=== PATIENT | female | born 1995 | race Caucasian/White ===

== ENCOUNTER 2017-09-03 22:27 | Emergency (ER) | payer SELFPAY ==
[2017-09-03] MEDS ORDERED: Erythromycin Base 0.5% Ophth Oint 1 GM Tube EYEBOTH ONE (22:40)
--- NOTE | 2017-09-03 22:43 | EDM.PDOC ---
ED HPI GENERAL MEDICAL PROBLEM - General Chief Complaint: Eye Problems Stated Complaint: PT HAS EYE INFECTION Time Seen by Provider: 09/03/17 22:40 Source of Information: Reports: Patient - History of Present Illness INITIAL COMMENTS - FREE TEXT/NARRATIVE: HISTORY AND PHYSICAL: History of present illness: [Patient whom wears contact lenses developed conjunctivitis in her right eye, she has discarded the contact lenses and is wearing spectacles at current no fever nausea vomiting chills sweats No double vision or light sensitivity ] Review of systems: As per history of present illness and below otherwise all systems reviewed and negative. Past medical history: As per history of present illness and as reviewed below otherwise noncontributory. Surgical history: As per history of present illness and as reviewed below otherwise noncontributory. Social history: No reported history of drug or alcohol abuse. Family history: As per history of present illness and as reviewed below otherwise noncontributory. Physical exam: HEENT: Atraumatic, normocephalic, pupils reactive, negative for conjunctival pallor or scleral icterus, mucous membranes moist, throat clear, neck supple, nontender, trachea midline. antibiotics a dates and the angle of her right eye and left eye is clear Lungs: Clear to auscultation, breath sounds equal bilaterally, chest nontender. Heart: S1S2, regular, negative for clicks, rubs, or JVD. Abdomen: Soft, nondistended, nontender. Negative for masses or hepatosplenomegaly. Negative for costovertebral tenderness. Pelvis: Stable nontender. Genitourinary: Deferred. Rectal: Deferred. Extremities: Atraumatic, negative for cords or calf pain. Neurovascular unremarkable. Neuro: Awake, alert, oriented. Cranial nerves II through XII unremarkable. Cerebellum unremarkable. Motor and sensory unremarkable throughout. Exam nonfocal. Diagnostics: [Clinical ] Therapeutics: [ erythromycin ointment tonight Gent ophthalmic prescription provided ] no contact lens usage 5 days Impression: [ acute conjunctivitis ] Definitive disposition and diagnosis as appropriate pending reevaluation and review of above. right eye Pain Score (Numeric/FACES): 5 - Related Data Allergies Allergy/AdvReac Type Severity Reaction Status Date / Time Sulfa (Sulfonamide Allergy Hives Verified 06/10/14 00:49 Antibiotics) Home Meds: Home Meds Norethindrone-E.estradiol-Iron [Junel Fe 1 MG-20 MCG] 1 each PO DAILY 07/12/14 [ History] hydrOXYzine Pamoate [Hydroxyzine Pamoate] 25 mg PO DAILY 07/12/14 [History] Past Medical History - Past Health History Medical/Surgical History: Denies Medical/Surgical History ED ROS GENERAL - Review of Systems Review Of Systems: ROS reveals no pertinent complaints other than HPI. ED EXAM GENERAL W FULL EYE - Physical Exam Exam: See Below Course - Vital Signs Last Recorded V/S: Last Vital Signs Temp 97 F 09/03/17 22:27 Pulse 65 09/03/17 22:27 Resp 18 09/03/17 22:27 BP 120/60 09/03/17 22:27 Pulse Ox 95 09/03/17 22:27 - Orders/Labs/Meds Orders: Active Orders 24 hr Category Date Time Status Erythromycin Base [Erythromycin 0.5% Ophth Oint] Med 09/03/17 22:40 Once 1 gm EYEBOTH ONETIME ONE Departure - Departure Time of Disposition: 22:42 Disposition: Home, Self-Care 01 Condition: Good Clinical Impression: Conjunctivitis - Discharge Information Referrals: PCP,None [Primary Care Provider] - Additional Instructions: Discard contact lenses Spectacles for 5 days Medication as prescribeReturn if symptoms persist or worsend The following information is given to patients seen in the emergency department who are being discharged to home. This information is to outline your options for follow-up care. We provide all patients seen in our emergency department with a follow-up referral. The need for follow-up, as well as the timing and circumstances, are variable depending upon the specifics of your emergency department visit. If you don't have a primary care physician on staff, we will provide you with a referral. We always advise you to contact your personal physician following an emergency department visit to inform them of the circumstance of the visit and for follow-up with them and/or the need for any referrals to a consulting specialist. The emergency department will also refer you to a specialist when appropriate. This referral assures that you have the opportunity for follow-up care with a specialist. All of these measure are taken in an effort to provide you with optimal care, which includes your follow-up. Under all circumstances we always encourage you to contact your private physician who remains a resource for coordinating your care. When calling for follow-up care, please make the office aware that this follow-up is from your recent emergency room visit. If for any reason you are refused follow-up, please contact the [facility] emergency department at and asked to speak to the emergency department charge nurse. - My Orders Last 24 Hours: My Active Orders 09/03/17 22:40 Erythromycin Base [Erythromycin 0.5% Ophth Oint] 1 gm EYEBOTH ONETIME ONE - Assessment/Plan Last 24 Hours: My Active Orders 09/03/17 22:40 Erythromycin Base [Erythromycin 0.5% Ophth Oint] 1 gm EYEBOTH ONETIME ONE
[2017-09-03 22:55] VITALS: BP 120/60
== END 2017-09-03 23:00 | disposition home or self-care (01) ==
LOC: MW.ED 22:27
DX: H10.31 Unspecified acute conjunctivitis, right eye (principal); Z88.2 Allergy status to sulfonamides; Z79.899 Other long term (current) drug therapy
CPT/HCPCS: 99282; A9270

== ENCOUNTER 2018-08-19 09:16 | Emergency (ER) | payer OTHER ==
--- NOTE | 2018-08-19 10:13 | CR ---
EXAMINATION: Right hand HISTORY: Pain COMPARISON: 04/28/2014 TECHNIQUE: 3 views FINDINGS/IMPRESSION: There is no acute osseous abnormality, dislocation, or fracture. Bone mineralization and joint spaces are preserved. No focal soft tissue swelling.
--- NOTE | 2018-08-19 10:14 | CR ---
EXAMINATION: Cervical spine HISTORY: Pain COMPARISON: 02/24/2014 TECHNIQUE: AP and lateral views FINDINGS: The cervical spinal alignment is normal. The vertebral body heights and disc spaces appear maintained. Prevertebral soft tissues are normal. IMPRESSION: Grossly unremarkable cervical spine.
--- NOTE | 2018-08-19 10:50 | EDM.PDOC ---
ED HPI GENERAL MEDICAL PROBLEM - General Chief Complaint: Neck Problem Stated Complaint: NECK PAIN Time Seen by Provider: 08/19/18 10:40 Source of Information: Reports: Patient - History of Present Illness INITIAL COMMENTS - FREE TEXT/NARRATIVE: HISTORY AND PHYSICAL: History of present illness: [see]seee "T" sheet Review of systems: As per history of present illness and below otherwise all systems reviewed and negative. Past medical history: As per history of present illness and as reviewed below otherwise noncontributory. Surgical history: As per history of present illness and as reviewed below otherwise noncontributory. Social history: No reported history of drug or alcohol abuse. Family history: As per history of present illness and as reviewed below otherwise noncontributory. Physical exam: HEENT: Atraumatic, normocephalic, pupils reactive, negative for conjunctival pallor or scleral icterus, mucous membranes moist, throat clear, neck supple, nontender, trachea midline. Lungs: Clear to auscultation, breath sounds equal bilaterally, chest nontender. Heart: S1S2, regular, negative for clicks, rubs, or JVD. Abdomen: Soft, nondistended, nontender. Negative for masses or hepatosplenomegaly. Negative for costovertebral tenderness. Pelvis: Stable nontender. Genitourinary: Deferred. Rectal: Deferred. Extremities: Atraumatic, negative for cords or calf pain. Neurovascular unremarkable. Neuro: Awake, alert, oriented. Cranial nerves II through XII unremarkable. Cerebellum unremarkable. Motor and sensory unremarkable throughout. Exam nonfocal. Diagnostics: [] Therapeutics: [] Impression: [] Definitive disposition and diagnosis as appropriate pending reevaluation and review of above. neck Pain Score (Numeric/FACES): 5 - Related Data Allergies Allergy/AdvReac Type Severity Reaction Status Date / Time Sulfa (Sulfonamide Allergy Hives Verified 08/19/18 09:19 Antibiotics) Home Meds: Home Meds Albuterol [Ventolin HFA] 1 puff INH Q4H #1 inhaler 03/03/18 [Rx] Past Medical History - Past Health History Medical/Surgical History: Denies Medical/Surgical History HEENT History: Reports: Otitis Media Cardiovascular History: Reports: None Respiratory History: Reports: Asthma, Other (See Below) Other Respiratory History: pleursiy Gastrointestinal History: Reports: None Genitourinary History: Reports: None MANAGEMENT PROFESSIONAL History: Reports: None Musculoskeletal History: Reports: None Neurological History: Reports: None Psychiatric History: Reports: None Endocrine/Metabolic History: Reports: None Hematologic History: Reports: None Immunologic History: Reports: None Oncologic (Cancer) History: Reports: None Dermatologic History: Reports: None - Infectious Disease History Infectious Disease History: Reports: C-Difficile, Shingles - Past Surgical History Head Surgeries/Procedures: Reports: None HEENT Surgical History: Reports: Myringotomy w Tube(s), Tonsillectomy Other HEENT Surgeries/Procedures: Ear canal surgery Cardiovascular Surgical History: Reports: None Respiratory Surgical History: Reports: None GI Surgical History: Reports: None Female Surgical History: Reports: None Endocrine Surgical History: Reports: None Neurological Surgical History: Reports: None Musculoskeletal Surgical History: Reports: None Oncologic Surgical History: Reports: None Dermatological Surgical History: Reports: None Social & Family History - Family History Family Medical History: Noncontributory - Tobacco Use Smoking Status *Q: Never Smoker Second Hand Smoke Exposure: No - Caffeine Use Caffeine Use: Reports: Coffee, Energy Drinks, Soda, Tea - Recreational Drug Use Recreational Drug Use: No ED ROS GENERAL - Review of Systems Review Of Systems: See Below ED EXAM, GENERAL - Physical Exam Exam: See Below Course - Vital Signs Last Recorded V/S: Last Vital Signs Temp 97.2 F 08/19/18 09:17 Pulse 75 08/19/18 09:17 Resp 18 08/19/18 09:17 BP 99/67 08/19/18 09:41 Pulse Ox 98 08/19/18 09:17 Departure - Departure Time of Disposition: 10:50 Disposition: Home, Self-Care 01 Condition: Good Clinical Impression: Cervical paraspinous muscle spasm - Discharge Information Referrals: PCP,None [Primary Care Provider] - Additional Instructions: The following information is given to patients seen in the emergency department who are being discharged to home. This information is to outline your options for follow-up care. We provide all patients seen in our emergency department with a follow-up referral. The need for follow-up, as well as the timing and circumstances, are variable depending upon the specifics of your emergency department visit. If you don't have a primary care physician on staff, we will provide you with a referral. We always advise you to contact your personal physician following an emergency department visit to inform them of the circumstance of the visit and for follow-up with them and/or the need for any referrals to a consulting specialist. The emergency department will also refer you to a specialist when appropriate. This referral assures that you have the opportunity for follow-up care with a specialist. All of these measure are taken in an effort to provide you with optimal care, which includes your follow-up. Under all circumstances we always encourage you to contact your private physician who remains a resource for coordinating your care. When calling for follow-up care, please make the office aware that this follow-up is from your recent emergency room visit. If for any reason you are refused follow-up, please contact the [facility] emergency department at and asked to speak to the emergency department charge nurse.
[2018-08-19 11:05] VITALS: BP 139/75
== END 2018-08-19 11:05 | disposition home or self-care (01) ==
LOC: MW.ED 09:16
DX: M62.830 Muscle spasm of back (principal); J45.909 Unspecified asthma, uncomplicated; Z88.2 Allergy status to sulfonamides; V49.49XA Driver injured in collision with other motor vehicles in traffic accident, initial encounter
CPT/HCPCS: 72040; 72040-26; 73130-26-RT; 73130-RT; 99283; 99284-25

== ENCOUNTER 2018-10-17 18:59 | Emergency (ER) | payer BC, OTHER ==
--- NOTE | 2018-10-17 19:33 | EDM.PDOC ---
ED HPI GENERAL MEDICAL PROBLEM - General Chief Complaint: ENT Problem Stated Complaint: PT HAS EAR INFECTION Time Seen by Provider: 10/17/18 19:31 Source of Information: Reports: Patient - History of Present Illness INITIAL COMMENTS - FREE TEXT/NARRATIVE: HISTORY AND PHYSICAL: History of present illness: []Patient presents with left ear pain and sinusitis Said pain over the last week she does have an appointment at [place] scheduled for next Saturday however did not want to wait for this so she is having significant ear pain no fever nausea vomiting chills sweats Review of systems: As per history of present illness and below otherwise all systems reviewed and negative. Past medical history: As per history of present illness and as reviewed below otherwise noncontributory. Surgical history: As per history of present illness and as reviewed below otherwise noncontributory. Social history: No reported history of drug or alcohol abuse. Family history: As per history of present illness and as reviewed below otherwise noncontributory. Physical exam: HEENT: Atraumatic, normocephalic, pupils reactive, negative for conjunctival pallor or scleral icterus, mucous membranes moist, throat clear, neck supple, nontender, trachea midline. Tympanic membranes are both red and bulging with loss of landmarks no mastoid tenderness some pain with movement of each auricle , sinus tenderness left greater than right Lungs: Clear to auscultation, breath sounds equal bilaterally, chest nontender. Heart: S1S2, regular, negative for clicks, rubs, or JVD. Abdomen: Soft, nondistended, nontender. Negative for masses or hepatosplenomegaly. Negative for costovertebral tenderness. Pelvis: Stable nontender. Genitourinary: Deferred. Rectal: Deferred. Extremities: Atraumatic, negative for cords or calf pain. Neurovascular unremarkable. Neuro: Awake, alert, oriented. Cranial nerves II through XII unremarkable. Cerebellum unremarkable. Motor and sensory unremarkable throughout. Exam nonfocal. Diagnostics: [Clinical ] Therapeutics: [Augmentin Cortisporin otic The counter symptomatic therapy discussed ] Impression: [ sinusitis ] Otitis media/otitis externa Definitive disposition and diagnosis as appropriate pending reevaluation and review of above. left ear Pain Score (Numeric/FACES): 8 - Related Data Allergies Allergy/AdvReac Type Severity Reaction Status Date / Time Sulfa (Sulfonamide Allergy Hives Verified 10/17/18 19:16 Antibiotics) Home Meds: Home Meds Etonogestrel [Nexplanon] 10/17/18 [History] Past Medical History - Past Health History Medical/Surgical History: Denies Medical/Surgical History HEENT History: Reports: Otitis Media, Other (See Below) Cardiovascular History: Reports: None Respiratory History: Reports: Asthma, Other (See Below) Other Respiratory History: pleursiy Gastrointestinal History: Reports: None Genitourinary History: Reports: None HEALTH AND SAFETY INSTRUCTOR History: Reports: None Musculoskeletal History: Reports: None Neurological History: Reports: None Psychiatric History: Reports: Anxiety Endocrine/Metabolic History: Reports: None Hematologic History: Reports: None Immunologic History: Reports: None Oncologic (Cancer) History: Reports: None Dermatologic History: Reports: None - Infectious Disease History Infectious Disease History: Reports: Chicken Pox, Shingles - Past Surgical History Head Surgeries/Procedures: Reports: None HEENT Surgical History: Reports: Tonsillectomy Other HEENT Surgeries/Procedures: Ear canal surgery Cardiovascular Surgical History: Reports: None Respiratory Surgical History: Reports: None GI Surgical History: Reports: None Female Surgical History: Reports: None Endocrine Surgical History: Reports: None Neurological Surgical History: Reports: None Musculoskeletal Surgical History: Reports: None Oncologic Surgical History: Reports: None Dermatological Surgical History: Reports: None Social & Family History - Family History Family Medical History: Noncontributory - Tobacco Use Smoking Status *Q: Never Smoker Second Hand Smoke Exposure: No - Caffeine Use Caffeine Use: Reports: Coffee, Energy Drinks, Soda - Recreational Drug Use Recreational Drug Use: No ED ROS GENERAL - Review of Systems Review Of Systems: See Below ED EXAM, GENERAL - Physical Exam Exam: See Below Course - Vital Signs Last Recorded V/S: Last Vital Signs Temp 97.3 F 10/17/18 19:14 Pulse 91 10/17/18 19:14 Resp 16 10/17/18 19:14 BP 129/81 10/17/18 19:14 Pulse Ox 98 10/17/18 19:14 Departure - Departure Time of Disposition: 19:33 Disposition: Home, Self-Care 01 Condition: Good Clinical Impression: Otitis media, Otitis externa, Sinusitis - Discharge Information Referrals: Hayde Cantu NP [Primary Care Provider] - Additional Instructions: The following information is given to patients seen in the emergency department who are being discharged to home. This information is to outline your options for follow-up care. We provide all patients seen in our emergency department with a follow-up referral. The need for follow-up, as well as the timing and circumstances, are variable depending upon the specifics of your emergency department visit. If you don't have a primary care physician on staff, we will provide you with a referral. We always advise you to contact your personal physician following an emergency department visit to inform them of the circumstance of the visit and for follow-up with them and/or the need for any referrals to a consulting specialist. The emergency department will also refer you to a specialist when appropriate. This referral assures that you have the opportunity for follow-up care with a specialist. All of these measure are taken in an effort to provide you with optimal care, which includes your follow-up. Under all circumstances we always encourage you to contact your private physician who remains a resource for coordinating your care. When calling for follow-up care, please make the office aware that this follow-up is from your recent emergency room visit. If for any reason you are refused follow-up, please contact the [facility] emergency department at and asked to speak to the emergency department charge nurse.
[2018-10-17 19:44] VITALS: BP 121/68
== END 2018-10-17 19:44 | disposition home or self-care (01) ==
LOC: MW.ED 18:59
DX: J32.9 Chronic sinusitis, unspecified (principal); H66.92 Otitis media, unspecified, left ear; H60.92 Unspecified otitis externa, left ear; Z88.2 Allergy status to sulfonamides; Z98.890 Other specified postprocedural states
CPT/HCPCS: 99282

== ENCOUNTER 2019-09-17 10:24 | Emergency (ER) | payer SELFPAY ==
[2019-09-17 10:38] VITALS: PULSE 67
[2019-09-17] MEDS ORDERED: Alum Hydrox/Mag Hydrox/Simeth 15 ML, Lidocaine 2% 5 ML PO ONE ×2 (10:45)
--- NOTE | 2019-09-17 10:48 | EDM.PDOC ---
ED HPI GENERAL MEDICAL PROBLEM - General Chief Complaint: Abdominal Pain Stated Complaint: SOB, STOMACH PAIN Time Seen by Provider: 09/17/19 10:44 Source of Information: Reports: Patient History Limitations: Reports: No Limitations - History of Present Illness INITIAL COMMENTS - FREE TEXT/NARRATIVE: HISTORY AND PHYSICAL: History of present illness: Patient is a 23-year-old female presents to the ED With complaint of abdominal pain. She states she has been dealing with abdominal pain since she was 16. She reports it has been getting worse recently. She states she vomits 3-8 times a day and occasionally has some blood in her emesis. She states she can hardly eat as this makes her symptoms worse. She did see Dr. Diaz yesterday and had labs done but has not heard back on these results. She states she was told it was likely ulcers and given referral for an upper endoscopy. She was started on protonix and zofran yesterday but states these are not helping. She denies fevers, chills, diarrhea, chest pain, cough, shortness of breath. Review of systems: As per history of present illness and below otherwise all systems reviewed and negative. Past medical history: As per history of present illness and as reviewed below otherwise noncontributory. Surgical history: As per history of present illness and as reviewed below otherwise noncontributory. Social history: No reported history of drug or alcohol abuse. Family history: As per history of present illness and as reviewed below otherwise noncontributory. Physical exam: General: Patient sitting comfortably in no acute distress and nontoxic appearing HEENT: Atraumatic, normocephalic, pupils reactive, negative for conjunctival pallor or scleral icterus, mucous membranes moist, throat clear, neck supple, nontender, trachea midline. No meningeal signs. Lungs: Clear to auscultation, breath sounds equal bilaterally, chest nontender. Heart: S1S2, regular, negative for clicks, rubs, or overt murmur. Abdomen: Soft, nondistended, no point tenderness on exam. Negative for masses or hepatosplenomegaly. Negative for costovertebral tenderness. No rigidity, rebound, guarding. Pelvis: Stable nontender. Genitourinary: Deferred. Rectal: Deferred. Extremities: Atraumatic, negative for cords or calf pain. Neurovascular unremarkable. Neuro: Awake, alert, oriented. Cranial nerves II through XII unremarkable. Cerebellum unremarkable. Motor and sensory unremarkable throughout. Exam nonfocal. Notes: Labs requested and reviewed from her visit 09/16/19 at [place] and all wnl. WBC 7.5, H & H 14.2 & 46, Creat 0.72, K+ 4.4, ALT 16, AST 17, Alk phos 76, Bili 0.3 Diagnostics: none Therapeutics: GI cocktail Prescriptions: Carafate Impression: GERD, gastritis Plan: Continue zofran and protonix as prescribed Take carafate as instructed Follow up with general surgery, please call the number provided to schedule an appointment Return to ED As needed as discussed Definitive disposition and diagnosis as appropriate pending reevaluation and review of above. stomach Pain Score (Numeric/FACES): 7 - Related Data Allergies Allergy/AdvReac Type Severity Reaction Status Date / Time Sulfa (Sulfonamide Allergy Hives Verified 09/17/19 10:37 Antibiotics) Home Meds: Home Meds Etonogestrel [Nexplanon] 10/17/18 [History] Ondansetron [Zofran] 4 mg PO PRN 09/17/19 [History] Pantoprazole [ProTONIX] 1 dose .ROUTE DAILY 09/17/19 [History] Sucralfate [Carafate] 1 gm PO QID 10 Days #40 tablet 09/17/19 [Rx] Past Medical History - Past Health History Medical/Surgical History: Denies Medical/Surgical History HEENT History: Reports: Otitis Media, Other (See Below) Cardiovascular History: Reports: None Respiratory History: Reports: Asthma, Other (See Below) Other Respiratory History: pleursiy Gastrointestinal History: Reports: None Genitourinary History: Reports: None COUNTER WEIGHER History: Reports: None Musculoskeletal History: Reports: None Neurological History: Reports: None Psychiatric History: Reports: Anxiety Endocrine/Metabolic History: Reports: None Hematologic History: Reports: None Immunologic History: Reports: None Oncologic (Cancer) History: Reports: None Dermatologic History: Reports: None - Infectious Disease History Infectious Disease History: Reports: Chicken Pox, Shingles - Past Surgical History Head Surgeries/Procedures: Reports: None HEENT Surgical History: Reports: Tonsillectomy Other HEENT Surgeries/Procedures: Ear canal surgery Cardiovascular Surgical History: Reports: None Respiratory Surgical History: Reports: None GI Surgical History: Reports: None Female Surgical History: Reports: None Endocrine Surgical History: Reports: None Neurological Surgical History: Reports: None Musculoskeletal Surgical History: Reports: None Oncologic Surgical History: Reports: None Dermatological Surgical History: Reports: None Social & Family History - Family History Family Medical History: Noncontributory - Caffeine Use Caffeine Use: Reports: Coffee, Energy Drinks, Soda ED ROS GENERAL - Review of Systems Review Of Systems: Comprehensive ROS is negative, except as noted in HPI. ED EXAM, GI/ABD - Physical Exam Exam: See Below (see dictation) Course - Vital Signs Last Recorded V/S: Last Vital Signs Temp 97.8 F 09/17/19 10:34 Pulse 67 09/17/19 10:34 Resp 16 09/17/19 10:34 BP 126/85 09/17/19 10:34 Pulse Ox 97 09/17/19 10:34 - Orders/Labs/Meds Meds: Medications Discontinued Medications Generic Name Dose Route Start Last Admin Trade Name Freq PRN Reason Stop Dose Admin Al Hydroxide/Mg Hydroxide 15 0 ml 09/17/19 10:45 09/17/19 11:04 ml/ Lidocaine HCl 5 ml PO 09/17/19 10:46 1 each ONETIME ONE Administration Departure - Departure Time of Disposition: 11:21 Disposition: Home, Self-Care 01 Condition: Good Clinical Impression: GERD (gastroesophageal reflux disease) - Discharge Information Prescriptions: Sucralfate [Carafate] 1 gm PO QID 10 Days #40 tablet Referrals: Frandy Diaz MD [Primary Care Provider] - Forms: ED Department Discharge Additional Instructions: The following information is given to patients seen in the emergency department who are being discharged to home. This information is to outline your options for follow-up care. We provide all patients seen in our emergency department with a follow-up referral. The need for follow-up, as well as the timing and circumstances, are variable depending upon the specifics of your emergency department visit. If you don't have a primary care physician on staff, we will provide you with a referral. We always advise you to contact your personal physician following an emergency department visit to inform them of the circumstance of the visit and for follow-up with them and/or the need for any referrals to a consulting specialist. The emergency department will also refer you to a specialist when appropriate. This referral assures that you have the opportunity for follow-up care with a specialist. All of these measure are taken in an effort to provide you with optimal care, which includes your follow-up. Under all circumstances we always encourage you to contact your private physician who remains a resource for coordinating your care. When calling for follow-up care, please make the office aware that this follow-up is from your recent emergency room visit. If for any reason you are refused follow-up, please contact the [facility] Emergency Department at and asked to speak to the emergency department charge nurse. [facility] [address], [place] [address] [address] [facility] Specialty Care - General Surgery Professional Building [address] [place] [address], [address] [place] [address] Continue zofran and protonix as prescribed Take carafate as instructed Follow up with general surgery, please call the number provided to schedule an appointment Return to ED As needed as discussed Sepsis Event Note - Evaluation Sepsis Screening Result: No Definite Risk - Focused Exam Vital Signs: Vital Signs Temp Pulse Resp BP Pulse Ox 09/17/19 10:34 97.8 F 67 16 126/85 97 Date Exam was Performed: 09/17/19 Time Exam was Performed: 11:24
[2019-09-17 11:41] VITALS: BP 111/76
== END 2019-09-17 11:35 | disposition home or self-care (01) ==
LOC: MW.ED 10:24
DX: K29.70 Gastritis, unspecified, without bleeding (principal); K21.9 Gastro-esophageal reflux disease without esophagitis; J45.909 Unspecified asthma, uncomplicated; Z79.899 Other long term (current) drug therapy; Z88.2 Allergy status to sulfonamides
CPT/HCPCS: 99283; A9270

== ENCOUNTER 2019-11-15 07:35 | Emergency (ER) | payer BC ==
[2019-11-15] MEDS ORDERED: Sodium Chloride 0.9% 10 ML Syringe FLUSH PRN (07:55)
[2019-11-15] MEDS ORDERED: Sodium Chloride 0.9% 2.5 ML Syringe FLUSH PRN (07:55)
[2019-11-15] MEDS ORDERED: Ondansetron 4 MG/2 ML SDV IVPUSH ONE (08:04)
[2019-11-15] MEDS ORDERED: Lactated Ringers 1,000 ML IV ONE ×2 (08:04→08:18)
[2019-11-15] MEDS ORDERED: fentaNYL 50 MCG/ML SDV IVPUSH ONE (08:04)
[2019-11-15 08:34] LABS: BLOOD UREA NITROGEN,BUN 16 mg/dL (7.0-18.0); CARBON DIOXIDE,CO2 25.9 mmol/L (21.0-32.0); CHLORIDE,CL 97 mmol/L (98-107); GLUCOSE RANDOM 160 mg/dL (74-106); POTASSIUM,K 3.6 mmol/L (3.5-5.1); SODIUM,NA 137 mmol/L (136-145)
[2019-11-15 08:38] LABS: LIPASE 99 U/L (73-393)
--- NOTE | 2019-11-15 08:39 | EDM.PDOC ---
ED HPI GENERAL MEDICAL PROBLEM - General Chief Complaint: Gastrointestinal Problem Stated Complaint: VOMITING Time Seen by Provider: 11/15/19 07:36 Source of Information: Reports: Patient, Old Records History Limitations: Reports: No Limitations - History of Present Illness INITIAL COMMENTS - FREE TEXT/NARRATIVE: There is a 23-year-old female with a past medical history of GERD, PTSD, anxiety, and depression presenting with abdominal pain. She reports about 3 to 4 hours ago, the onset of sudden periumbilical abdominal pain radiating to the right flank. This was accompanied by nausea, 5 episodes of nonbloody emesis. No history of prior symptoms like this. No self treatment prior to arrival. Currently rates the pain is 10 out of 10, constant, nothing makes this better or worse. No history of GI bleeding, vaginal bleeding or discharge, or urinary symptoms. Upper Abdomen Pain Score (Numeric/FACES): 9 - Related Data Allergies Allergy/AdvReac Type Severity Reaction Status Date / Time Sulfa (Sulfonamide Allergy Hives Verified 11/15/19 07:53 Antibiotics) Home Meds: Home Meds Ondansetron [Zofran] 4 mg PO ASDIRECTED PRN 09/17/19 [History] Pantoprazole [ProTONIX] 40 mg PO DAILY 09/17/19 [History] Acetaminophen [Acetaminophen Extra Strength] 500 - 1,000 mg PO Q6H PRN #30 tablet 11/15/19 [Rx] Loperamide HCl [Imodium A-D] 2 mg PO Q4H PRN #20 tablet 11/15/19 [Rx] Ondansetron [Zofran] 4 mg PO Q8H PRN #15 tab 11/15/19 [Rx] Sertraline [Zoloft] 25 mg PO DAILY 11/15/19 [History] buPROPion [Wellbutrin] 75 mg PO DAILY 11/15/19 [History] Past Medical History - Past Health History Medical/Surgical History: Denies Medical/Surgical History HEENT History: Reports: Other (See Below) Other HEENT History: wears glasses/contacts, chronic sinus infections Cardiovascular History: Reports: None Respiratory History: Reports: Asthma, Other (See Below) Other Respiratory History: pleursiy Gastrointestinal History: Reports: GERD, Other (See Below) Other Gastrointestinal History: epigastric pain Genitourinary History: Reports: None [employer]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: Reports: None Musculoskeletal History: Reports: None Neurological History: Reports: Migraines Psychiatric History: Reports: Anxiety, Depression, PTSD Endocrine/Metabolic History: Reports: None Hematologic History: Reports: None Immunologic History: Reports: None Oncologic (Cancer) History: Reports: None Dermatologic History: Reports: None - Infectious Disease History Infectious Disease History: Reports: None - Past Surgical History Head Surgeries/Procedures: Reports: None HEENT Surgical History: Reports: Tonsillectomy, Other (See Below) Other HEENT Surgeries/Procedures: Ear canal surgery Cardiovascular Surgical History: Reports: None Respiratory Surgical History: Reports: None GI Surgical History: Reports: None Female Surgical History: Reports: None Endocrine Surgical History: Reports: None Neurological Surgical History: Reports: None Musculoskeletal Surgical History: Reports: None Oncologic Surgical History: Reports: None Dermatological Surgical History: Reports: None Social & Family History - Family History Family Medical History: Noncontributory - Tobacco Use Smoking Status *Q: Never Smoker - Caffeine Use Caffeine Use: Reports: Coffee, Energy Drinks, Soda - Recreational Drug Use Recreational Drug Use: Yes Drug Use in Last 12 Months: Yes Recreational Drug Type: Reports: Marijuana/Hashish Recreational Drug Use Frequency: Daily ED ROS GENERAL - Review of Systems Review Of Systems: See Below Constitutional: Reports: Malaise. Denies: Fever, Chills HEENT: Denies: Nosebleed, Throat Pain Respiratory: Denies: Shortness of Breath, Cough Cardiovascular: Denies: Chest Pain Endocrine: Denies: Polyuria GI/Abdominal: Reports: Abdominal Pain, Nausea, Vomiting. Denies: Black Stool, Bloody Stool, Diarrhea, Hematemesis, Hematochezia, Melena : Reports: Flank Pain. Denies: Hematuria, Urgency Musculoskeletal: Denies: Neck Pain, Back Pain Skin: Denies: Rash Neurological: Denies: Headache Psychiatric: Denies: Anxiety, Confusion ED EXAM, GI/ABD - Physical Exam Exam: See Below Text/Narrative:: Vital signs reviewed. Nursing notes reviewed. Constitutional: Awake, alert, appears anxious Head: Normocephalic, atraumatic. Eyes: EOMI, conjunctiva normal, no discharge, no scleral icterus. Ears, Nose, Throat: External ears and nose normal, moist oral mucosa. Cardiovascular: Bradycardic, 2+ radial pulse, capillary refill less than 2 seconds. RRR no MRG Pulmonary: normal work of breathing, no accessory muscle use. CTA BL Abdomen/GI: Soft, minimal tenderness in the periumbilical region, nondistended, no guarding or rigidity, no masses. No CVA tenderness Musculoskeletal: No deformities. Integumentary: Appropriate color for ethnicity, warm, dry, no pallor or jaundice, no rash. Neurologic: Alert, answering questions appropriately, normal speech, no facial droop, moving all extremities well. Psychiatric: Appropriate mood and affect, normal thought process. Course - Vital Signs Text/Narrative:: Patient hemodynamically stable, afebrile, well-appearing, looks nontoxic. Differential diagnosis includes but is not limited to: Intra-abdominal infection, cholecystitis, pancreatitis, GERD, AAA, diverticulitis, bowel obstruction, electrolyte disturbance, complication of , hyperemesis gravidarum, cannabinoid hyperemesis, metabolic acidosis, severe volume depletion, kidney stone, pyelonephritis, UTI, etc. CBC shows a leukocytosis with neutrophilic predominance. INR is normal. Lactate is normal. Venous blood gas shows a respiratory alkalosis. Renal and hepatic markers look reassuring, mild hyperglycemia. Normal lipase and LFTs, negative test. Patient denies any dysuria, hematuria, or urinary frequency to suggest a UTI, additionally she has no suprapubic pain or flank pain and is afebrile. I suspect that her leukocytosis is reactive given that there is no focal evidence of a bacterial infection at this point. I have a low suspicion for bacterial sepsis so we did not administer broad-spectrum antibiotics although we did obtain blood cultures -more likely to be a viral illness. CT scan was concerning for right-sided colitis but did not demonstrate appendicitis or any other acute intra-abdominal pathology. There is no radiographic evidence of pyelonephritis or bladder wall thickening to suggest cystitis. The patient felt better after receiving IV fluids, Zofran, haloperidol, and analgesia. She looks well and looks much more comfortable. Remedios becerra is able to tolerate p.o. intake and ambulate around the ED without any problem. The patient has a radiographic evidence of colitis but denies any acute diarrheal symptoms, I am going to diagnose her with acute viral gastroenteritis. We will prescribe some Zofran, Imodium AD, Tylenol for pain, and we will have her increase her fluid intake. Plan: Patient is stable to discharge home with outpatient primary care follow- up. Strict emergency department return precautions were provided, patient indicated understanding. All questions were answered prior to departure. Discharged in good condition. Last Recorded V/S: Last Vital Signs Temp 35.9 C L 11/15/19 09:13 Pulse 77 11/15/19 10:22 Resp 16 11/15/19 10:22 BP 103/56 L 11/15/19 09:42 Pulse Ox 97 11/15/19 10:22 - Orders/Labs/Meds Orders: Active Orders 24 hr Category Date Time Status Cardiac Monitoring [RC] . DIRECTED Care 11/15/19 08:04 Active Pulse Oximetry [RC] ASDIRECTED Care 11/15/19 08:04 Active NPO Now [Nothing per Oral Now Diet] [DIET] Diet 11/15/19 Lunch Active CULTURE BLOOD [BC] Stat Lab 11/15/19 07:55 Received CULTURE BLOOD [BC] Stat Lab 11/15/19 08:38 Results LACTATE WITH REFLEX [BG] Stat Lab 11/15/19 08:05 Ordered Sodium Chloride 0.9% [Saline Flush] Med 11/15/19 07:55 Active 10 ml FLUSH ASDIRECTED PRN Sodium Chloride 0.9% [Saline Flush] Med 11/15/19 07:55 Active 2.5 ml FLUSH ASDIRECTED PRN Blood Culture x2 Reflex Set [OM.PC] Stat Oth 11/15/19 08:05 Ordered Saline Lock Insert [OM.PC] Stat Oth 11/15/19 07:55 Ordered Medication Orders Sodium Chloride (Saline Flush) 10 ml FLUSH ASDIRECTED PRN PRN Reason: Keep Vein Open Last Admin: 11/15/19 08:28 Dose: 10 ml Documented by: WAQAS Sodium Chloride (Saline Flush) 2.5 ml FLUSH ASDIRECTED PRN PRN Reason: Keep Vein Open Last Admin: 11/15/19 08:28 Dose: 2.5 ml Documented by: WAQAS Labs: Laboratory Tests 11/15/19 11/15/19 11/15/19 Range/Units 07:55 07:55 07:55 WBC 21.08 H (4.0-11.0) K/uL RBC 5.38 (4.30-5.90) M/uL Hgb 14.6 (12.0-16.0) g/dL Hct 44.6 (36.0-46.0) % MCV 82.9 (80.0-98.0) fL MCH 27.1 (27.0-32.0) pg MCHC 32.7 (31.0-37.0) g/dL RDW Std Deviation 43.1 (28.0-62.0) fl RDW Coeff of [place] 14 (11.0-15.0) % Plt Count 326 (150-400) K/uL MPV 10.50 (7.40-12.00) fL Neut % (Auto) 74.6 (48.0-80.0) % Lymph % (Auto) 19.1 (16.0-40.0) % [place] % (Auto) 5.3 (0.0-15.0) % Eos % (Auto) 0.8 (0.0-7.0) % Baso % (Auto) 0.2 (0.0-1.5) % Neut # (Auto) 15.7 H (1.4-5.7) K/uL Lymph # (Auto) 4.0 H (0.6-2.4) K/uL [place] # (Auto) 1.1 H (0.0-0.8) K/uL Eos # (Auto) 0.2 (0.0-0.7) K/uL Baso # (Auto) 0.1 (0.0-0.1) K/uL Nucleated RBC % 0.0 /100WBC Nucleated RBCs # 0 K/uL INR VBG pH (7.31-7.41) VBG pCO2 (35-45) mmHG VBG pO2 (30-40) mmHG VBG HCO3 (22-30) mEq/L VBG Total CO2 (41-51) mmol/L VBG Base Excess (-3.0-3.0) Lactate 2.0 (0.20-2.00) mmol/L Sodium 137 (136-145) mmol/L Potassium 3.6 (3.5-5.1) mmol/L Chloride 97 L (98-107) mmol/L Carbon Dioxide 25.9 (21.0-32.0) mmol/L BUN 16 (7.0-18.0) mg/dL Creatinine 1.0 (0.6-1.0) mg/dL Est Cr Clr Drug Dosing 66.02 mL/min Estimated GFR (MDRD) > 60.0 ml/min Glucose 160 H (74-106) mg/dL Calcium 9.6 (8.5-10.1) mg/dL Total Bilirubin 0.3 (0.2-1.0) mg/dL AST 16 (15-37) IU/L ALT 28 (14-63) IU/L Alkaline Phosphatase 86 (46-116) U/L Troponin I (0.000-0.056) ng/mL Total Protein 8.7 H (6.4-8.2) g/dL Albumin 5.0 (3.4-5.0) g/dL Globulin 3.7 (2.6-4.0) g/dL Albumin/Globulin Ratio 1.4 (0.9-1.6) Lipase (73-393) U/L HCG, Qual (NEG) 11/15/19 11/15/19 11/15/19 Range/Units 07:55 07:55 07:55 WBC (4.0-11.0) K/uL RBC (4.30-5.90) M/uL Hgb (12.0-16.0) g/dL Hct (36.0-46.0) % MCV (80.0-98.0) fL MCH (27.0-32.0) pg MCHC (31.0-37.0) g/dL RDW Std Deviation (28.0-62.0) fl RDW Coeff of [place] (11.0-15.0) % Plt Count (150-400) K/uL MPV (7.40-12.00) fL Neut % (Auto) (48.0-80.0) % Lymph % (Auto) (16.0-40.0) % [place] % (Auto) (0.0-15.0) % Eos % (Auto) (0.0-7.0) % Baso % (Auto) (0.0-1.5) % Neut # (Auto) (1.4-5.7) K/uL Lymph # (Auto) (0.6-2.4) K/uL [place] # (Auto) (0.0-0.8) K/uL Eos # (Auto) (0.0-0.7) K/uL Baso # (Auto) (0.0-0.1) K/uL Nucleated RBC % /100WBC Nucleated RBCs # K/uL INR 0.96 VBG pH 7.46 H (7.31-7.41) VBG pCO2 35 (35-45) mmHG VBG pO2 22 L (30-40) mmHG VBG HCO3 25 (22-30) mEq/L VBG Total CO2 22 L (41-51) mmol/L VBG Base Excess 1.2 (-3.0-3.0) Lactate (0.20-2.00) mmol/L Sodium (136-145) mmol/L Potassium (3.5-5.1) mmol/L Chloride (98-107) mmol/L Carbon Dioxide (21.0-32.0) mmol/L BUN (7.0-18.0) mg/dL Creatinine (0.6-1.0) mg/dL Est Cr Clr Drug Dosing mL/min Estimated GFR (MDRD) ml/min Glucose (74-106) mg/dL Calcium (8.5-10.1) mg/dL Total Bilirubin (0.2-1.0) mg/dL AST (15-37) IU/L ALT (14-63) IU/L Alkaline Phosphatase (46-116) U/L Troponin I < 0.050 (0.000-0.056) ng/mL Total Protein (6.4-8.2) g/dL Albumin (3.4-5.0) g/dL Globulin (2.6-4.0) g/dL Albumin/Globulin Ratio (0.9-1.6) Lipase 99 (73-393) U/L HCG, Qual (NEG) 11/15/19 Range/Units 07:55 WBC (4.0-11.0) K/uL RBC (4.30-5.90) M/uL Hgb (12.0-16.0) g/dL Hct (36.0-46.0) % MCV (80.0-98.0) fL MCH (27.0-32.0) pg MCHC (31.0-37.0) g/dL RDW Std Deviation (28.0-62.0) fl RDW Coeff of [place] (11.0-15.0) % Plt Count (150-400) K/uL MPV (7.40-12.00) fL Neut % (Auto) (48.0-80.0) % Lymph % (Auto) (16.0-40.0) % [place] % (Auto) (0.0-15.0) % Eos % (Auto) (0.0-7.0) % Baso % (Auto) (0.0-1.5) % Neut # (Auto) (1.4-5.7) K/uL Lymph # (Auto) (0.6-2.4) K/uL [place] # (Auto) (0.0-0.8) K/uL Eos # (Auto) (0.0-0.7) K/uL Baso # (Auto) (0.0-0.1) K/uL Nucleated RBC % /100WBC Nucleated RBCs # K/uL INR VBG pH (7.31-7.41) VBG pCO2 (35-45) mmHG VBG pO2 (30-40) mmHG VBG HCO3 (22-30) mEq/L VBG Total CO2 (41-51) mmol/L VBG Base Excess (-3.0-3.0) Lactate (0.20-2.00) mmol/L Sodium (136-145) mmol/L Potassium (3.5-5.1) mmol/L Chloride (98-107) mmol/L Carbon Dioxide (21.0-32.0) mmol/L BUN (7.0-18.0) mg/dL Creatinine (0.6-1.0) mg/dL Est Cr Clr Drug Dosing mL/min Estimated GFR (MDRD) ml/min Glucose (74-106) mg/dL Calcium (8.5-10.1) mg/dL Total Bilirubin (0.2-1.0) mg/dL AST (15-37) IU/L ALT (14-63) IU/L Alkaline Phosphatase (46-116) U/L Troponin I (0.000-0.056) ng/mL Total Protein (6.4-8.2) g/dL Albumin (3.4-5.0) g/dL Globulin (2.6-4.0) g/dL Albumin/Globulin Ratio (0.9-1.6) Lipase (73-393) U/L HCG, Qual NEGATIVE (NEG) Meds: Medications Generic Name Dose Route Start Last Admin Trade Name Freq PRN Reason Stop Dose Admin Sodium Chloride 10 ml 11/15/19 07:55 11/15/19 08:28 Saline Flush FLUSH 10 ml ASDIRECTED PRN Administration Keep Vein Open Sodium Chloride 2.5 ml 11/15/19 07:55 11/15/19 08:28 Saline Flush FLUSH 2.5 ml ASDIRECTED PRN Administration Keep Vein Open Discontinued Medications Generic Name Dose Route Start Last Admin Trade Name Freq PRN Reason Stop Dose Admin Fentanyl 50 mcg 11/15/19 08:04 11/15/19 08:27 Fentanyl IVPUSH 11/15/19 08:05 50 mcg ONETIME ONE Administration Haloperidol Lactate 5 mg 11/15/19 09:04 11/15/19 09:12 Haldol IM 11/15/19 09:05 5 mg ONETIME ONE Administration Lactated Ringer's 1,000 mls @ 999 mls/hr 11/15/19 08:04 11/15/19 08:27 Ringers, Lactated IV 11/15/19 09:04 999 mls/hr .BOLUS ONE Administration Lactated Ringer's 1,000 mls @ 999 mls/hr 11/15/19 08:18 11/15/19 09:11 Ringers, Lactated IV 11/15/19 09:18 999 mls/hr .BOLUS ONE Administration Iopamidol 100 ml 11/15/19 09:35 11/15/19 09:35 Isovue Multipack-370 (76%) IVPUSH 11/15/19 09:36 100 ml ONETIME ONE Administration Ondansetron HCl 4 mg 11/15/19 08:04 11/15/19 08:27 Zofran IVPUSH 11/15/19 08:05 4 mg ONETIME ONE Administration Departure - Departure Time of Disposition: 10:29 Disposition: Home, Self-Care 01 Condition: Good Clinical Impression: Acute gastroenteritis - Discharge Information *PRESCRIPTION DRUG MONITORING PROGRAM REVIEWED*: Not Applicable *COPY OF PRESCRIPTION DRUG MONITORING REPORT IN PATIENT SOPHIE: Not Applicable Prescriptions: Acetaminophen [Acetaminophen Extra Strength] 500 - 1,000 mg PO Q6H PRN #30 tablet PRN Reason: Pain (Mild 1-3) Loperamide HCl [Imodium A-D] 2 mg PO Q4H PRN #20 tablet PRN Reason: Diarrhea Ondansetron [Zofran] 4 mg PO Q8H PRN #15 tab PRN Reason: Nausea/Vomiting Instructions: Viral Gastroenteritis, Adult, Nausea and Vomiting, Adult, [id number] Referrals: Frandy Diaz MD [Primary Care Provider] - 3 Days (For reevaluation.) Forms: ED Department Discharge Additional Instructions: Thank you for choosing the [facility] emergency department in [place] for your medical needs today. It was a pleasure caring for you. You were seen in the emergency department for abdominal pain, nausea, and vomiting. By your blood work and your CT scan, it looks like you likely have a viral gastrointestinal illness, called gastroenteritis. The treatment for this is typically supportive, with medications for nausea, diarrhea, and abdominal pain. I also encourage you to drink plenty of fluids to make sure that you are staying well-hydrated. I would like for you to follow-up with your primary doctor in the next 2 to 3 days for reevaluation. Please return the emergency department immediately if your symptoms worsen or if you feel worse. The following information is given to patients seen in the emergency department who are being discharged. This information is to outline your options for follow-up care. We provide all patients seen in our emergency department with a follow-up referral. The need for follow-up, as well as the timing and circumstances, are variable depending upon the specifics of your emergency department visit. If you don't have a primary care physician on staff, we will provide you with a referral. We always advise you to contact your personal physician following an emergency department visit to inform them of the circumstance of the visit and for follow-up with them and/or the need for any referrals to a consulting specialist. The emergency department will also refer you to a specialist when appropriate. This referral assures that you have the opportunity for follow-up care with a specialist. All of these measure are taken in an effort to provide you with optimal care, which includes your follow-up. Under all circumstances we always encourage you to contact your private physician who remains a resource for coordinating your care. When calling for follow-up care, please make the office aware that this follow-up is from your recent emergency room visit. If for any reason you are refused follow-up, please contact the [facility] Emergency Department at and asked to speak to the emergency department charge nurse. If you do not have a primary care physician that is caring for you, you can contact these clinics below to set up an appointment to establish care: [facility] - Primary Care [address] [place] [id number] [facility] [address] [place] [id number] Sepsis Event Note (ED) - Evaluation Sepsis Screening Result: Possible Sepsis Risk - Focused Exam Vital Signs: Vital Signs Temp Temp Pulse Resp BP Pulse Ox 11/15/19 10:22 77 16 97 11/15/19 09:42 68 16 103/56 L 98 11/15/19 09:13 35.9 C L 56 L 18 147/63 H 100 11/15/19 07:49 34.8 C L 54 L 24 H 169/121 H 99 - My Orders Last 24 Hours: My Active Orders 11/15/19 07:55 CULTURE BLOOD [BC] Stat Sodium Chloride 0.9% [Saline Flush] 10 ml FLUSH ASDIRECTED PRN Sodium Chloride 0.9% [Saline Flush] 2.5 ml FLUSH ASDIRECTED PRN Saline Lock Insert [OM.PC] Stat 11/15/19 08:04 Cardiac Monitoring [RC] . DIRECTED Pulse Oximetry [RC] ASDIRECTED 11/15/19 08:05 LACTATE WITH REFLEX [BG] Stat Blood Culture x2 Reflex Set [OM.PC] Stat 11/15/19 08:38 CULTURE BLOOD [BC] Stat 11/15/19 Lunch NPO Now [Nothing per Oral Now Diet] [DIET] - Assessment/Plan Last 24 Hours: My Active Orders 11/15/19 07:55 CULTURE BLOOD [BC] Stat Sodium Chloride 0.9% [Saline Flush] 10 ml FLUSH ASDIRECTED PRN Sodium Chloride 0.9% [Saline Flush] 2.5 ml FLUSH ASDIRECTED PRN Saline Lock Insert [OM.PC] Stat 11/15/19 08:04 Cardiac Monitoring [RC] . DIRECTED Pulse Oximetry [RC] ASDIRECTED 11/15/19 08:05 LACTATE WITH REFLEX [BG] Stat Blood Culture x2 Reflex Set [OM.PC] Stat 11/15/19 08:38 CULTURE BLOOD [BC] Stat 11/15/19 Lunch NPO Now [Nothing per Oral Now Diet] [DIET]
[2019-11-15] MEDS ORDERED: Haloperidol Lactate 5 MG/ML SDV IM ONE (09:04)
[2019-11-15] MEDS ORDERED: Iopamidol 755 MG/ML 200 ML Multipack Bottle IVPUSH ONE (09:35)
[2019-11-15 09:43] VITALS: BP 103/56
--- NOTE | 2019-11-15 10:13 | CT ---
CT abdomen and pelvis Technique: Multiple axial sections were obtained from above the dome of the diaphragm inferiorly through the pubic symphysis. Intravenous contrast was utilized. No oral contrast has been given. Findings: Fecal material is seen within the distal ileum. There is questionable bowel wall thickening within the right colon and cecum and difficult to exclude a mild colitis. Appendix is felt to be visualized and is normal. Appendix is best seen on the sagittal images. Visualized lung bases show nothing acute. Liver shows no discrete abnormality. Spleen appears within normal limits. Adrenal glands show no nodule. Kidneys show symmetric contrast enhancement without hydronephrosis or mass. Pancreas appears normal. Aorta shows no aneurysm. No retroperitoneal adenopathy or mesenteric abnormalities are seen. No pelvic mass or adenopathy is appreciated. Bone window settings were reviewed which shows no acute osseous finding. Minimal fat-containing umbilical hernia is noted. Impression: 1. Fecal material within the distal ileum. Findings raise the possibility of poor distal ileal transit 2. Questionable bowel wall thickening within the right colon and cecum possibly due to a nonspecific colitis which could be the etiology for the ileal findings. 3. Appendix felt to be visualized and is normal. 4. No additional abnormality is appreciated on CT study of the abdomen and pelvis. Diagnostic code #3 This report was dictated in MDT
[2019-11-15 10:22] VITALS: PULSE 77
== END 2019-11-15 10:45 | disposition home or self-care (01) ==
LOC: MW.ED 07:35
DX: K52.9 Noninfective gastroenteritis and colitis, unspecified (principal); F41.9 Anxiety disorder, unspecified; F32.9 Major depressive disorder, single episode, unspecified; K21.9 Gastro-esophageal reflux disease without esophagitis; Z88.2 Allergy status to sulfonamides; Z79.899 Other long term (current) drug therapy; Z90.49 Acquired absence of other specified parts of digestive tract; Z98.890 Other specified postprocedural states
CPT/HCPCS: 36415; 74177; 80053; 82803; 83605; 83690; 84484; 84703; 85025; 85610; 87040; 96361; 96372; 96374; 96375; 99284; J1630; J2405; J3010; J7120; Q9967

== ENCOUNTER 2019-11-18 11:10 | Observation (INO) | payer BC ==
[2019-11-18] MEDS ORDERED: Sodium Chloride 0.9% 2.5 ML Syringe FLUSH PRN (11:14)
[2019-11-18] MEDS ORDERED: Sodium Chloride 0.9% 10 ML Syringe FLUSH PRN (11:14)
[2019-11-18] MEDS ORDERED: Lactated Ringers 1,000 ML IV ONE (11:33)
[2019-11-18] MEDS ORDERED: Ondansetron 4 MG/2 ML SDV IVPUSH ONE (11:33)
[2019-11-18 12:13] LABS: BLOOD UREA NITROGEN,BUN 21 mg/dL (7.0-18.0); CARBON DIOXIDE,CO2 27.5 mmol/L (21.0-32.0); CHLORIDE,CL 96 mmol/L (98-107); GLUCOSE RANDOM 148 mg/dL (74-106); POTASSIUM,K 3.6 mmol/L (3.5-5.1); SODIUM,NA 139 mmol/L (136-145)
--- NOTE | 2019-11-18 12:22 | EDM.PDOC ---
ED HPI GENERAL MEDICAL PROBLEM - General Chief Complaint: Abdominal Pain Stated Complaint: NAUSEA; DEHYDRATION Time Seen by Provider: 11/18/19 11:11 Source of Information: Reports: Patient, Old Records History Limitations: Reports: No Limitations - History of Present Illness INITIAL COMMENTS - FREE TEXT/NARRATIVE: 23-year-old female with a past medical history of GERD presenting with abdominal pain, right flank pain, nausea, and vomiting. She was seen in our emergency department on November [address] proven colitis. Discharged home with symptomatic treatment. Shortly thereafter, she saw her primary medical clinic who diagnosed her with bacterial vaginosis and prescribed oral and topical vaginal medications. Today she presents back to the emergency department complaining of persistent periumbilical abdominal pain, nausea, and multiple episodes of nonbloody emesis. She also complains of persistent right flank pain. Taking her prescribed Zofran without much relief. She also complains of a 3-day history of cough and some occasional substernal chest pain. Nursing note mention chills and diarrhea but she denies this to me. Denies any headache, neck stiffness, hemoptysis, shortness of breath, dysuria, urinary frequency, hematuria, rash, sick contacts or recent travel. lower abodmen Pain Score (Numeric/FACES): 8 - Related Data Allergies Allergy/AdvReac Type Severity Reaction Status Date / Time Sulfa (Sulfonamide Allergy Hives Verified 11/18/19 16:16 Antibiotics) Home Meds: Home Meds Pantoprazole [ProTONIX] 40 mg PO DAILY 09/17/19 [History] Ondansetron [Zofran] 4 mg PO Q8H PRN #15 tab 11/15/19 [Rx] Sertraline [Zoloft] 25 mg PO DAILY 11/15/19 [History] buPROPion [Wellbutrin] 75 mg PO DAILY 11/15/19 [History] Past Medical History - Past Health History Medical/Surgical History: Denies Medical/Surgical History HEENT History: Reports: Other (See Below) Other HEENT History: wears glasses/contacts, chronic sinus infections Cardiovascular History: Reports: None Respiratory History: Reports: Asthma, Other (See Below) Other Respiratory History: pleursiy Gastrointestinal History: Reports: GERD, Other (See Below) Other Gastrointestinal History: epigastric pain Genitourinary History: Reports: None [employer] History: Reports: None Musculoskeletal History: Reports: None Neurological History: Reports: Migraines Psychiatric History: Reports: Anxiety, Depression, PTSD Endocrine/Metabolic History: Reports: None Hematologic History: Reports: None Immunologic History: Reports: None Oncologic (Cancer) History: Reports: None Dermatologic History: Reports: None - Infectious Disease History Infectious Disease History: Reports: Shingles - Past Surgical History Head Surgeries/Procedures: Reports: None HEENT Surgical History: Reports: Tonsillectomy, Other (See Below) Other HEENT Surgeries/Procedures: Ear canal surgery Cardiovascular Surgical History: Reports: None Respiratory Surgical History: Reports: None GI Surgical History: Reports: None Female Surgical History: Reports: None Endocrine Surgical History: Reports: None Neurological Surgical History: Reports: None Musculoskeletal Surgical History: Reports: None Oncologic Surgical History: Reports: None Dermatological Surgical History: Reports: None Social & Family History - Family History Family Medical History: Noncontributory - Tobacco Use Smoking Status *Q: Never Smoker - Caffeine Use Caffeine Use: Reports: Coffee, Energy Drinks, Soda - Recreational Drug Use Recreational Drug Use: Yes Drug Use in Last 12 Months: Yes Recreational Drug Type: Reports: Marijuana/Hashish Recreational Drug Use Frequency: Daily ED ROS GENERAL - Review of Systems Review Of Systems: See Below Constitutional: Reports: Malaise. Denies: Fever, Chills HEENT: Denies: Throat Pain Respiratory: Reports: Cough. Denies: Shortness of Breath Cardiovascular: Reports: Chest Pain. Denies: Edema, Palpitations Endocrine: Denies: Fatigue GI/Abdominal: Reports: Abdominal Pain, Nausea, Vomiting. Denies: Black Stool, Bloody Stool, Diarrhea, Difficulty Swallowing, Hematemesis, Hematochezia, Melena : Denies: Discharge, Dysuria, Flank Pain, Frequency, Hematuria Musculoskeletal: Denies: Neck Pain, Back Pain Skin: Denies: Rash, Lesions Neurological: Denies: Headache ED EXAM, GI/ABD - Physical Exam Exam: See Below Text/Narrative:: Vital signs reviewed. Nursing notes reviewed. Constitutional: Awake, alert, non-distressed. Head: Normocephalic, atraumatic. Eyes: EOMI, conjunctiva normal, no discharge, no scleral icterus. Ears, Nose, Throat: External ears and nose normal, moist oral mucosa. Cardiovascular: 2+ radial pulse, capillary refill less than 2 seconds. Pulmonary: normal work of breathing, no accessory muscle use. Abdomen/GI: Soft, moderate tenderness in the periumbilical region, nondistended, no guarding or rigidity, no masses. No CVA tenderness. Musculoskeletal: No deformities. Integumentary: Appropriate color for ethnicity, warm, dry, no pallor or jaundice, no rash. Neurologic: Alert, answering questions appropriately, normal speech, no facial droop, moving all extremities well. Psychiatric: Appropriate mood and affect, normal thought process. Course - Vital Signs Text/Narrative:: Patient [hemodynamically stable, afebrile], well-appearing, looks nontoxic. Differential diagnosis includes but is not limited to: Appendicitis, gastritis, pancreatitis, GERD, small bowel obstruction, ileus, intra-abdominal infection, sepsis, kidney stone, UTI, pyelonephritis, colitis, electrolyte disturbance, volume depletion, etc. Labs show leukocytosis, erythrocytosis. Normal lactate. Electrolytes and renal function reassuring. Mild hyperglycemia. Mild hypercalcemia. Negative troponin. Negative test, normal lipase. Urinalysis shows moderate ketones, positive nitrites, positive bacteria concerning for infection. Given flank pain we obtained CT imaging of the abdomen/pelvis which shows possible bowel wall thickening in the right and transverse colon, suspicious for possible colitis versus under distention, otherwise no acute findings. The patient does not have diarrhea or any stool changes so I do not think that she has colitis clinically. Presentation is concerning for pyelonephritis. We gave Zofran, IV fluids, and IV metoclopramide. The patient continued to have ongoing vomiting and will need to be admitted to the hospital for symptomatic treatment with antinausea medications and fluids. Given 1 g of IV ceftriaxone. Urine culture was sent. I discussed the case with Dr. oLy Robles who agrees to admit to observation. Last Recorded V/S: Last Vital Signs Temp 35.8 C L 11/18/19 11:20 Pulse 82 11/18/19 15:57 Resp 16 11/18/19 15:57 BP 136/79 11/18/19 15:57 Pulse Ox 97 11/18/19 15:57 - Orders/Labs/Meds Orders: Active Orders 24 hr Category Date Time Status CULTURE URINE [RM] Stat Lab 11/18/19 11:34 Received Sodium Chloride 0.9% [Saline Flush] Med 11/18/19 11:14 Active 10 ml FLUSH ASDIRECTED PRN Sodium Chloride 0.9% [Saline Flush] Med 11/18/19 11:14 Active 2.5 ml FLUSH ASDIRECTED PRN Saline Lock Insert [OM.PC] Stat Oth 11/18/19 11:14 Ordered Medication Orders Acetaminophen (Tylenol) 650 mg PO Q4H PRN PRN Reason: Pain (Mild 1-3)/fever Enoxaparin Sodium (Lovenox) 40 mg SUBCUT Q24H CB Ondansetron HCl (Zofran Odt) 4 mg PO Q4H PRN PRN Reason: nausea, able to take PO Ondansetron HCl (Zofran) 4 mg IVPUSH Q4H PRN PRN Reason: Nausea Sodium Chloride (Saline Flush) 10 ml FLUSH ASDIRECTED PRN PRN Reason: Keep Vein Open Last Admin: 11/18/19 11:41 Dose: 10 ml Documented by: [email or web address] Sodium Chloride (Saline Flush) 2.5 ml FLUSH ASDIRECTED PRN PRN Reason: Keep Vein Open Last Admin: 11/18/19 11:41 Dose: 2.5 ml Documented by: [id number] Labs: Laboratory Tests 11/18/19 11/18/19 11/18/19 Range/Units 11:30 11:30 11:30 WBC 16.10 H (4.0-11.0) K/uL RBC 5.93 H (4.30-5.90) M/uL Hgb 16.1 H (12.0-16.0) g/dL Hct 48.2 H (36.0-46.0) % MCV 81.3 (80.0-98.0) fL MCH 27.2 (27.0-32.0) pg MCHC 33.4 (31.0-37.0) g/dL RDW Std Deviation 41.2 (28.0-62.0) fl RDW Coeff of [place] 14 (11.0-15.0) % Plt Count 340 (150-400) K/uL MPV 10.70 (7.40-12.00) fL Neut % (Auto) 86.2 H (48.0-80.0) % Lymph % (Auto) 9.0 L (16.0-40.0) % [place] % (Auto) 4.7 (0.0-15.0) % Eos % (Auto) 0.0 (0.0-7.0) % Baso % (Auto) 0.1 (0.0-1.5) % Neut # (Auto) 13.9 H (1.4-5.7) K/uL Lymph # (Auto) 1.5 (0.6-2.4) K/uL [place] # (Auto) 0.8 (0.0-0.8) K/uL Eos # (Auto) 0.0 (0.0-0.7) K/uL Baso # (Auto) 0.0 (0.0-0.1) K/uL Nucleated RBC % 0.0 /100WBC Nucleated RBCs # 0 K/uL Lactate 2.0 (0.20-2.00) mmol/L Sodium 139 (136-145) mmol/L Potassium 3.6 (3.5-5.1) mmol/L Chloride 96 L (98-107) mmol/L Carbon Dioxide 27.5 (21.0-32.0) mmol/L BUN 21 H (7.0-18.0) mg/dL Creatinine 1.0 (0.6-1.0) mg/dL Est Cr Clr Drug Dosing TNP Estimated GFR (MDRD) > 60.0 ml/min Glucose 148 H (74-106) mg/dL Calcium 10.2 H (8.5-10.1) mg/dL Total Bilirubin 0.6 (0.2-1.0) mg/dL AST 20 (15-37) IU/L ALT 31 (14-63) IU/L Alkaline Phosphatase 84 (46-116) U/L Troponin I (0.000-0.056) ng/mL Total Protein 9.3 H (6.4-8.2) g/dL Albumin 5.4 H (3.4-5.0) g/dL Globulin 3.9 (2.6-4.0) g/dL Albumin/Globulin Ratio 1.4 (0.9-1.6) Lipase (73-393) U/L HCG, Qual (NEG) Urine Color Urine Appearance Urine pH (5.0-8.0) Ur Specific [place] (1.001-1.035) Urine Protein (NEGATIVE) mg/dL Urine Glucose (UA) (NEGATIVE) mg/dL Urine Ketones (NEGATIVE) mg/dL Urine Occult Blood (NEGATIVE) Urine Nitrite (NEGATIVE) Urine Bilirubin (NEGATIVE) Urine Ictotest Urine Urobilinogen (<2.0) EU/dL Ur Leukocyte Esterase (NEGATIVE) Urine RBC (0-2/HPF) Urine WBC (0-5/HPF) Ur Epithelial Cells (NONE-FEW) Amorphous Sediment (NEGATIVE) Urine Bacteria (NEGATIVE) Urine Mucus (NONE-MOD) 11/18/19 11/18/19 11/18/19 Range/Units 11:30 11:30 11:30 WBC (4.0-11.0) K/uL RBC (4.30-5.90) M/uL Hgb (12.0-16.0) g/dL Hct (36.0-46.0) % MCV (80.0-98.0) fL MCH (27.0-32.0) pg MCHC (31.0-37.0) g/dL RDW Std Deviation (28.0-62.0) fl RDW Coeff of [place] (11.0-15.0) % Plt Count (150-400) K/uL MPV (7.40-12.00) fL Neut % (Auto) (48.0-80.0) % Lymph % (Auto) (16.0-40.0) % [place] % (Auto) (0.0-15.0) % Eos % (Auto) (0.0-7.0) % Baso % (Auto) (0.0-1.5) % Neut # (Auto) (1.4-5.7) K/uL Lymph # (Auto) (0.6-2.4) K/uL [place] # (Auto) (0.0-0.8) K/uL Eos # (Auto) (0.0-0.7) K/uL Baso # (Auto) (0.0-0.1) K/uL Nucleated RBC % /100WBC Nucleated RBCs # K/uL Lactate (0.20-2.00) mmol/L Sodium (136-145) mmol/L Potassium (3.5-5.1) mmol/L Chloride (98-107) mmol/L Carbon Dioxide (21.0-32.0) mmol/L BUN (7.0-18.0) mg/dL Creatinine (0.6-1.0) mg/dL Est Cr Clr Drug Dosing Estimated GFR (MDRD) ml/min Glucose (74-106) mg/dL Calcium (8.5-10.1) mg/dL Total Bilirubin (0.2-1.0) mg/dL AST (15-37) IU/L ALT (14-63) IU/L Alkaline Phosphatase (46-116) U/L Troponin I < 0.050 (0.000-0.056) ng/mL Total Protein (6.4-8.2) g/dL Albumin (3.4-5.0) g/dL Globulin (2.6-4.0) g/dL Albumin/Globulin Ratio (0.9-1.6) Lipase 141 (73-393) U/L HCG, Qual NEGATIVE (NEG) Urine Color Urine Appearance Urine pH (5.0-8.0) Ur Specific [place] (1.001-1.035) Urine Protein (NEGATIVE) mg/dL Urine Glucose (UA) (NEGATIVE) mg/dL Urine Ketones (NEGATIVE) mg/dL Urine Occult Blood (NEGATIVE) Urine Nitrite (NEGATIVE) Urine Bilirubin (NEGATIVE) Urine Ictotest Urine Urobilinogen (<2.0) EU/dL Ur Leukocyte Esterase (NEGATIVE) Urine RBC (0-2/HPF) Urine WBC (0-5/HPF) Ur Epithelial Cells (NONE-FEW) Amorphous Sediment (NEGATIVE) Urine Bacteria (NEGATIVE) Urine Mucus (NONE-MOD) 11/18/19 Range/Units 11:34 WBC (4.0-11.0) K/uL RBC (4.30-5.90) M/uL Hgb (12.0-16.0) g/dL Hct (36.0-46.0) % MCV (80.0-98.0) fL MCH (27.0-32.0) pg MCHC (31.0-37.0) g/dL RDW Std Deviation (28.0-62.0) fl RDW Coeff of [place] (11.0-15.0) % Plt Count (150-400) K/uL MPV (7.40-12.00) fL Neut % (Auto) (48.0-80.0) % Lymph % (Auto) (16.0-40.0) % [place] % (Auto) (0.0-15.0) % Eos % (Auto) (0.0-7.0) % Baso % (Auto) (0.0-1.5) % Neut # (Auto) (1.4-5.7) K/uL Lymph # (Auto) (0.6-2.4) K/uL [place] # (Auto) (0.0-0.8) K/uL Eos # (Auto) (0.0-0.7) K/uL Baso # (Auto) (0.0-0.1) K/uL Nucleated RBC % /100WBC Nucleated RBCs # K/uL Lactate (0.20-2.00) mmol/L Sodium (136-145) mmol/L Potassium (3.5-5.1) mmol/L Chloride (98-107) mmol/L Carbon Dioxide (21.0-32.0) mmol/L BUN (7.0-18.0) mg/dL Creatinine (0.6-1.0) mg/dL Est Cr Clr Drug Dosing Estimated GFR (MDRD) ml/min Glucose (74-106) mg/dL Calcium (8.5-10.1) mg/dL Total Bilirubin (0.2-1.0) mg/dL AST (15-37) IU/L ALT (14-63) IU/L Alkaline Phosphatase (46-116) U/L Troponin I (0.000-0.056) ng/mL Total Protein (6.4-8.2) g/dL Albumin (3.4-5.0) g/dL Globulin (2.6-4.0) g/dL Albumin/Globulin Ratio (0.9-1.6) Lipase (73-393) U/L HCG, Qual (NEG) Urine Color DARK YELLOW Urine Appearance SLT CLOUDY Urine pH 6.5 (5.0-8.0) Ur Specific [place] >= 1.030 (1.001-1.035) Urine Protein 100 H (NEGATIVE) mg/dL Urine Glucose (UA) NEGATIVE (NEGATIVE) mg/dL Urine Ketones 40 H (NEGATIVE) mg/dL Urine Occult Blood NEGATIVE (NEGATIVE) Urine Nitrite POSITIVE H (NEGATIVE) Urine Bilirubin MODERATE H (NEGATIVE) Urine Ictotest NEGATIVE Urine Urobilinogen 1.0 (<2.0) EU/dL Ur Leukocyte Esterase NEGATIVE (NEGATIVE) Urine RBC 0-2 (0-2/HPF) Urine WBC 1-3 (0-5/HPF) Ur Epithelial Cells MODERATE (NONE-FEW) Amorphous Sediment LIGHT (NEGATIVE) Urine Bacteria 1+ H (NEGATIVE) Urine Mucus MANY (NONE-MOD) Meds: Medications Generic Name Dose Route Start Last Admin Trade Name Sonam PRN Reason Stop Dose Admin Acetaminophen 650 mg 11/18/19 15:35 Tylenol PO Q4H PRN Pain (Mild 1-3)/fever Enoxaparin Sodium 40 mg 11/18/19 15:45 Lovenox SUBCUT Q24H CB Ondansetron HCl 4 mg 11/18/19 15:35 Zofran Odt PO Q4H PRN nausea, able to take PO Ondansetron HCl 4 mg 11/18/19 15:35 Zofran IVPUSH Q4H PRN Nausea Sodium Chloride 10 ml 11/18/19 11:14 11/18/19 11:41 Saline Flush FLUSH 10 ml ASDIRECTED PRN Administration Keep Vein Open Sodium Chloride 2.5 ml 11/18/19 11:14 11/18/19 11:41 Saline Flush FLUSH 2.5 ml ASDIRECTED PRN Administration Keep Vein Open Discontinued Medications Generic Name Dose Route Start Last Admin Trade Name Sonam PRN Reason Stop Dose Admin Lactated Ringer's 1,000 mls @ 999 mls/hr 11/18/19 11:33 11/18/19 11:40 Ringers, Lactated IV 11/18/19 12:33 999 mls/hr .BOLUS ONE Administration Ceftriaxone Sodium/Dextrose 1 50 mls @ 100 mls/hr 11/18/19 12:26 11/18/19 13:24 gm/ Premix IV 11/18/19 12:55 100 mls/hr ONETIME ONE Administration Iopamidol 80 ml 11/18/19 12:37 11/18/19 12:38 Isovue Multipack-370 (76%) IVPUSH 11/18/19 12:38 80 ml ONETIME STA Administration Metoclopramide HCl 5 mg 11/18/19 13:57 11/18/19 14:30 Reglan IVPUSH 11/18/19 13:58 5 mg ONETIME ONE Administration Ondansetron HCl 4 mg 11/18/19 11:33 11/18/19 11:40 Zofran IVPUSH 11/18/19 11:34 4 mg ONETIME ONE Administration Departure - Departure Time of Disposition: 14:45 Disposition: Refer to Observation Condition: Good Clinical Impression: Pyelonephritis - Discharge Information Sepsis Event Note (ED) - Evaluation Sepsis Screening Result: No Definite Risk - Focused Exam Vital Signs: Vital Signs Temp Pulse Resp BP Pulse Ox 11/18/19 14:25 88 98 H 142/100 H 97 11/18/19 13:53 84 154/95 H 95 11/18/19 12:20 67 154/95 H 98 11/18/19 11:20 35.8 C L 71 16 156/69 H - My Orders Last 24 Hours: My Active Orders 11/18/19 11:14 Sodium Chloride 0.9% [Saline Flush] 10 ml FLUSH ASDIRECTED PRN Sodium Chloride 0.9% [Saline Flush] 2.5 ml FLUSH ASDIRECTED PRN Saline Lock Insert [OM.PC] Stat 11/18/19 11:34 CULTURE URINE [RM] Stat - Assessment/Plan Last 24 Hours: My Active Orders 11/18/19 11:14 Sodium Chloride 0.9% [Saline Flush] 10 ml FLUSH ASDIRECTED PRN Sodium Chloride 0.9% [Saline Flush] 2.5 ml FLUSH ASDIRECTED PRN Saline Lock Insert [OM.PC] Stat 11/18/19 11:34 CULTURE URINE [RM] Stat
[2019-11-18] MEDS ORDERED: cefTRIAXone 1 GM in Premix Bag 1 BAG IV ONE (12:26)
[2019-11-18] MEDS ORDERED: Iopamidol 755 MG/ML 500 ML Multipack Bottle IVPUSH STA (12:37)
--- NOTE | 2019-11-18 12:54 | CT ---
CT abdomen and pelvis Technique: Multiple axial sections were obtained from above the dome of the diaphragm inferiorly through the pubic symphysis. Intravenous contrast was utilized. No oral contrast has been given. Comparison: Prior CT abdomen and pelvis study of 11/15/19. Findings: Visualized lung bases show nothing acute. Liver shows no focal abnormality. Spleen appears within normal limits. Pancreas shows no abnormality. Kidneys show symmetric contrast enhancement without hydronephrosis or mass. Kidneys show no surrounding inflammatory change. Gallbladder contains no calcified gallstones. Aorta shows no aneurysm. No retroperitoneal adenopathy or mesenteric abnormalities are seen. Appendix is seen and appears normal. No pelvic mass or adenopathy is seen. No free fluid or inflammatory change is seen. Previous stool within the distal ileum is no longer present. Possible bowel wall thickening again noted within the right colon as well as transverse colon. This finding could be due to colitis as well as under distention. Bone window settings were reviewed which appear within normal limits for the patient's age. Impression: 1. Possible bowel wall thickening remains within the right and transverse colon. As mentioned above, uncertain if this represents colitis or represents change from under distention. 2. Prior fecal material within the distal ileum is no longer seen. 3. No acute abnormality otherwise seen on CT study of the abdomen and pelvis. Diagnostic code #3 This report was dictated in MDT
--- NOTE | 2019-11-18 13:00 | CR ---
Chest: 2 views of the chest were obtained. Comparison: Prior chest x-ray of 03/14/18. Heart size and mediastinum are normal. Lungs are clear with no acute parenchymal change. Minimal scoliosis is noted within the spine. No acute osseous finding is seen. Impression: 1. Nothing acute is seen on 2 view chest x-ray. Diagnostic code #2 This report was dictated in MDT
[2019-11-18] MEDS ORDERED: Metoclopramide 10 MG/2 ML SDV IVPUSH ONE (13:57)
[2019-11-18] MEDS ORDERED: Acetaminophen 325 MG Tab PO PRN (15:35)
[2019-11-18] MEDS ORDERED: Ondansetron 4 MG Tab.DIS PO PRN (15:35)
--- NOTE | 2019-11-18 16:23 | PCM.HP.2 ---
H&P History of Present Illness - General Date of Service: 11/18/19 Admit Problem/Dx: Admission Diagnosis/Problem Admission Diagnosis/Problem Pyelonephritis Source of Information: Patient History Limitations: Reports: No Limitations - History of Present Illness Initial Comments - Free Text/Narative: 23-year-old female presents complaining of abdominal pain, right flank pain, nausea and vomiting for the past few days. She has a PMH of GERD, asthma, anxiety and depression. She also reports having subjective fevers and chills. Patient reports her pain is mostly across her upper abdomen, right flank and right back. Of note, she was seen in the ED approximately 3 days ago and diagnosed with colitis. She was given a script for antibiotics but has not been able to take any of them because she has had persistent nausea and vomiting. Patient denies any blurry vision, sore throat, cough, SOB, chest pain, diarrhea, dysuria, hematuria, bloody stools, numbness or tingling in extremities. In the ER, WBC count 16, lactate normal, lipase normal and [id number] test negative. UA positive for nitrite and 1+ bacteria. CXR unremarkable. CT abdomen showed possible wall thickening of right and transverse colon or could represent under distention of colon. Patient given 1 L IV fluid bolus, IV Rocephin, Reglan, Zofran and admitted for further evaluation and treatment. lower abodmen Pain Score (Numeric/FACES): 8 - Related Data Allergies/Adverse Reactions: Allergies Allergy/AdvReac Type Severity Reaction Status Date / Time Sulfa (Sulfonamide Allergy Hives Verified 11/18/19 16:16 Antibiotics) Home Medications: Home Meds Pantoprazole [ProTONIX] 40 mg PO DAILY 09/17/19 [History] Ondansetron [Zofran] 4 mg PO Q8H PRN #15 tab 11/15/19 [Rx] Sertraline [Zoloft] 100 mg PO DAILY 11/15/19 [History] buPROPion HCL [Wellbutrin Xl] 150 mg PO DAILY 11/18/19 [History] Past Medical History - Past Health History Medical/Surgical History: Denies Medical/Surgical History HEENT History: Reports: Other (See Below) Other HEENT History: wears glasses/contacts, chronic sinus infections Cardiovascular History: Reports: None Respiratory History: Reports: Asthma, Other (See Below) Other Respiratory History: pleursiy Gastrointestinal History: Reports: GERD, Other (See Below) Other Gastrointestinal History: epigastric pain Genitourinary History: Reports: None [employer] History: Reports: None Musculoskeletal History: Reports: None Neurological History: Reports: Migraines Psychiatric History: Reports: Anxiety, Depression, PTSD Endocrine/Metabolic History: Reports: None Hematologic History: Reports: None Immunologic History: Reports: None Oncologic (Cancer) History: Reports: None Dermatologic History: Reports: None - Infectious Disease History Infectious Disease History: Reports: Shingles - Past Surgical History Head Surgeries/Procedures: Reports: None HEENT Surgical History: Reports: Tonsillectomy, Other (See Below) Other HEENT Surgeries/Procedures: Ear canal surgery Cardiovascular Surgical History: Reports: None Respiratory Surgical History: Reports: None GI Surgical History: Reports: None Female Surgical History: Reports: None Endocrine Surgical History: Reports: None Neurological Surgical History: Reports: None Musculoskeletal Surgical History: Reports: None Oncologic Surgical History: Reports: None Dermatological Surgical History: Reports: None Social & Family History - Family History Family Medical History: Noncontributory - Tobacco Use Smoking Status *Q: Never Smoker - Caffeine Use Caffeine Use: Reports: Coffee, Energy Drinks, Soda - Recreational Drug Use Recreational Drug Use: Yes Drug Use in Last 12 Months: Yes Recreational Drug Type: Reports: Marijuana/Hashish Recreational Drug Use Frequency: Daily H&P Review of Systems - Review of Systems: Review Of Systems: Comprehensive ROS is negative, except as noted in HPI. Exam - Exam Exam: See Below - Vital Signs Vital Signs: Last Vital Signs Temp 35.8 C L 11/18/19 11:20 Pulse 82 11/18/19 15:57 Resp 16 11/18/19 15:57 BP 136/79 11/18/19 15:57 Pulse Ox 97 11/18/19 15:57 Weight: 66 kg - Exam General: Alert, Oriented, Cooperative HEENT: Conjunctiva Clear, EOMI, Hearing Intact, Mucosa Moist & [place], Posterior Pharynx Clear, Pupils Equal Lungs: Normal Respiratory Effort, Other (mild wheezes b/l) Cardiovascular: Regular Rate, Regular Rhythm GI/Abdominal Exam: Normal Bowel Sounds, Soft, No Distention, No Mass, Other (ttp in RUQ, epigastric, LUQ and right flank.). No: Guarding, Rebound Extremities: Normal Inspection, No Pedal Edema Peripheral Pulses: 2+: Radial (L), Radial (R) Skin: Warm, Dry, Intact Neurological: Cranial Nerves Intact, Strength Equal Bilateral, Normal Speech, Normal Tone Neuro Extensive - Mental Status: Alert, Oriented x3, Normal Mood/Affect Psychiatric: Alert, Normal Affect, Normal Mood - Patient Data Lab Results Last 24 hrs: Laboratory Results - last 24 hr 11/18/19 11/18/19 11/18/19 Range/Units 11:30 11:30 11:30 WBC 16.10 H (4.0-11.0) K/uL RBC 5.93 H (4.30-5.90) M/uL Hgb 16.1 H (12.0-16.0) g/dL Hct 48.2 H (36.0-46.0) % MCV 81.3 (80.0-98.0) fL MCH 27.2 (27.0-32.0) pg MCHC 33.4 (31.0-37.0) g/dL RDW Std Deviation 41.2 (28.0-62.0) fl RDW Coeff of [place] 14 (11.0-15.0) % Plt Count 340 (150-400) K/uL MPV 10.70 (7.40-12.00) fL Neut % (Auto) 86.2 H (48.0-80.0) % Lymph % (Auto) 9.0 L (16.0-40.0) % Cross % (Auto) 4.7 (0.0-15.0) % Eos % (Auto) 0.0 (0.0-7.0) % Baso % (Auto) 0.1 (0.0-1.5) % Neut # (Auto) 13.9 H (1.4-5.7) K/uL Lymph # (Auto) 1.5 (0.6-2.4) K/uL Cross # (Auto) 0.8 (0.0-0.8) K/uL Eos # (Auto) 0.0 (0.0-0.7) K/uL Baso # (Auto) 0.0 (0.0-0.1) K/uL Nucleated RBC % 0.0 /100WBC Nucleated RBCs # 0 K/uL Lactate 2.0 (0.20-2.00) mmol/L Sodium 139 (136-145) mmol/L Potassium 3.6 (3.5-5.1) mmol/L Chloride 96 L (98-107) mmol/L Carbon Dioxide 27.5 (21.0-32.0) mmol/L BUN 21 H (7.0-18.0) mg/dL Creatinine 1.0 (0.6-1.0) mg/dL Est Cr Clr Drug Dosing TNP Estimated GFR (MDRD) > 60.0 ml/min Glucose 148 H (74-106) mg/dL Calcium 10.2 H (8.5-10.1) mg/dL Total Bilirubin 0.6 (0.2-1.0) mg/dL AST 20 (15-37) IU/L ALT 31 (14-63) IU/L Alkaline Phosphatase 84 (46-116) U/L Troponin I (0.000-0.056) ng/mL Total Protein 9.3 H (6.4-8.2) g/dL Albumin 5.4 H (3.4-5.0) g/dL Globulin 3.9 (2.6-4.0) g/dL Albumin/Globulin Ratio 1.4 (0.9-1.6) Lipase (73-393) U/L HCG, Qual (NEG) Urine Color Urine Appearance Urine pH (5.0-8.0) Ur Specific [place] (1.001-1.035) Urine Protein (NEGATIVE) mg/dL Urine Glucose (UA) (NEGATIVE) mg/dL Urine Ketones (NEGATIVE) mg/dL Urine Occult Blood (NEGATIVE) Urine Nitrite (NEGATIVE) Urine Bilirubin (NEGATIVE) Urine Ictotest Urine Urobilinogen (<2.0) EU/dL Ur Leukocyte Esterase (NEGATIVE) Urine RBC (0-2/HPF) Urine WBC (0-5/HPF) Ur Epithelial Cells (NONE-FEW) Amorphous Sediment (NEGATIVE) Urine Bacteria (NEGATIVE) Urine Mucus (NONE-MOD) COVID-19 (JAMIE) (NEGATIVE) 11/18/19 11/18/19 11/18/19 Range/Units 11:30 11:30 11:30 WBC (4.0-11.0) K/uL RBC (4.30-5.90) M/uL Hgb (12.0-16.0) g/dL Hct (36.0-46.0) % MCV (80.0-98.0) fL MCH (27.0-32.0) pg MCHC (31.0-37.0) g/dL RDW Std Deviation (28.0-62.0) fl RDW Coeff of [place] (11.0-15.0) % Plt Count (150-400) K/uL MPV (7.40-12.00) fL Neut % (Auto) (48.0-80.0) % Lymph % (Auto) (16.0-40.0) % Cross % (Auto) (0.0-15.0) % Eos % (Auto) (0.0-7.0) % Baso % (Auto) (0.0-1.5) % Neut # (Auto) (1.4-5.7) K/uL Lymph # (Auto) (0.6-2.4) K/uL Cross # (Auto) (0.0-0.8) K/uL Eos # (Auto) (0.0-0.7) K/uL Baso # (Auto) (0.0-0.1) K/uL Nucleated RBC % /100WBC Nucleated RBCs # K/uL Lactate (0.20-2.00) mmol/L Sodium (136-145) mmol/L Potassium (3.5-5.1) mmol/L Chloride (98-107) mmol/L Carbon Dioxide (21.0-32.0) mmol/L BUN (7.0-18.0) mg/dL Creatinine (0.6-1.0) mg/dL Est Cr Clr Drug Dosing Estimated GFR (MDRD) ml/min Glucose (74-106) mg/dL Calcium (8.5-10.1) mg/dL Total Bilirubin (0.2-1.0) mg/dL AST (15-37) IU/L ALT (14-63) IU/L Alkaline Phosphatase (46-116) U/L Troponin I < 0.050 (0.000-0.056) ng/mL Total Protein (6.4-8.2) g/dL Albumin (3.4-5.0) g/dL Globulin (2.6-4.0) g/dL Albumin/Globulin Ratio (0.9-1.6) Lipase 141 (73-393) U/L HCG, Qual NEGATIVE (NEG) Urine Color Urine Appearance Urine pH (5.0-8.0) Ur Specific [place] (1.001-1.035) Urine Protein (NEGATIVE) mg/dL Urine Glucose (UA) (NEGATIVE) mg/dL Urine Ketones (NEGATIVE) mg/dL Urine Occult Blood (NEGATIVE) Urine Nitrite (NEGATIVE) Urine Bilirubin (NEGATIVE) Urine Ictotest Urine Urobilinogen (<2.0) EU/dL Ur Leukocyte Esterase (NEGATIVE) Urine RBC (0-2/HPF) Urine WBC (0-5/HPF) Ur Epithelial Cells (NONE-FEW) Amorphous Sediment (NEGATIVE) Urine Bacteria (NEGATIVE) Urine Mucus (NONE-MOD) COVID-19 (JAMIE) (NEGATIVE) 11/18/19 11/18/19 Range/Units 11:34 15:22 WBC (4.0-11.0) K/uL RBC (4.30-5.90) M/uL Hgb (12.0-16.0) g/dL Hct (36.0-46.0) % MCV (80.0-98.0) fL MCH (27.0-32.0) pg MCHC (31.0-37.0) g/dL RDW Std Deviation (28.0-62.0) fl RDW Coeff of [place] (11.0-15.0) % Plt Count (150-400) K/uL MPV (7.40-12.00) fL Neut % (Auto) (48.0-80.0) % Lymph % (Auto) (16.0-40.0) % Cross % (Auto) (0.0-15.0) % Eos % (Auto) (0.0-7.0) % Baso % (Auto) (0.0-1.5) % Neut # (Auto) (1.4-5.7) K/uL Lymph # (Auto) (0.6-2.4) K/uL Cross # (Auto) (0.0-0.8) K/uL Eos # (Auto) (0.0-0.7) K/uL Baso # (Auto) (0.0-0.1) K/uL Nucleated RBC % /100WBC Nucleated RBCs # K/uL Lactate (0.20-2.00) mmol/L Sodium (136-145) mmol/L Potassium (3.5-5.1) mmol/L Chloride (98-107) mmol/L Carbon Dioxide (21.0-32.0) mmol/L BUN (7.0-18.0) mg/dL Creatinine (0.6-1.0) mg/dL Est Cr Clr Drug Dosing Estimated GFR (MDRD) ml/min Glucose (74-106) mg/dL Calcium (8.5-10.1) mg/dL Total Bilirubin (0.2-1.0) mg/dL AST (15-37) IU/L ALT (14-63) IU/L Alkaline Phosphatase (46-116) U/L Troponin I (0.000-0.056) ng/mL Total Protein (6.4-8.2) g/dL Albumin (3.4-5.0) g/dL Globulin (2.6-4.0) g/dL Albumin/Globulin Ratio (0.9-1.6) Lipase (73-393) U/L HCG, Qual (NEG) Urine Color DARK YELLOW Urine Appearance SLT CLOUDY Urine pH 6.5 (5.0-8.0) Ur Specific [place] >= 1.030 (1.001-1.035) Urine Protein 100 H (NEGATIVE) mg/dL Urine Glucose (UA) NEGATIVE (NEGATIVE) mg/dL Urine Ketones 40 H (NEGATIVE) mg/dL Urine Occult Blood NEGATIVE (NEGATIVE) Urine Nitrite POSITIVE H (NEGATIVE) Urine Bilirubin MODERATE H (NEGATIVE) Urine Ictotest NEGATIVE Urine Urobilinogen 1.0 (<2.0) EU/dL Ur Leukocyte Esterase NEGATIVE (NEGATIVE) Urine RBC 0-2 (0-2/HPF) Urine WBC 1-3 (0-5/HPF) Ur Epithelial Cells MODERATE (NONE-FEW) Amorphous Sediment LIGHT (NEGATIVE) Urine Bacteria 1+ H (NEGATIVE) Urine Mucus MANY (NONE-MOD) COVID-19 (JAMIE) NEGATIVE (NEGATIVE) Result Diagrams: 11/18/19 11:30 11/18/19 11:30 Sepsis Event Note - Evaluation Sepsis Screening Result: No Definite Risk - Focused Exam Vital Signs: Vital Signs Temp Pulse Resp BP Pulse Ox 11/18/19 15:57 82 16 136/79 97 11/18/19 14:58 97 18 157/82 H 97 11/18/19 14:25 88 98 H 142/100 H 97 11/18/19 13:53 84 154/95 H 95 11/18/19 12:20 67 154/95 H 98 11/18/19 11:20 35.8 C L 71 16 156/69 H Date Exam was Performed: 11/18/19 Time Exam was Performed: 17:28 Problem List Initiated/Reviewed/Updated: Yes Orders Last 24hrs: Active Orders 24 hr Category Date Time Status Admission Status [Patient Status] [ADT] Stat ADT 11/18/19 14:41 Active Oxygen Therapy [RC] PRN Care 11/18/19 15:35 Active Up ad Key [RC] ASDIRECTED Care 11/18/19 15:35 Active VTE/DVT Education [RC] PER UNIT ROUTINE Care 11/18/19 15:35 Active Vital Signs [RC] Q4H Care 11/18/19 15:35 Active Nothing per Oral Now Diet [DIET] Diet 11/18/19 Lunch Active CULTURE URINE [RM] Stat Lab 11/18/19 11:34 Received Acetaminophen [Tylenol] Med 11/18/19 15:35 Active 650 mg PO Q4H PRN Enoxaparin [Lovenox] Med 11/18/19 15:45 Active 40 mg SUBCUT Q24H Ondansetron [Zofran ODT] Med 11/18/19 15:35 Active 4 mg PO Q4H PRN Ondansetron [Zofran] Med 11/18/19 15:35 Active 4 mg IVPUSH Q4H PRN Sodium Chloride 0.9% [Saline Flush] Med 11/18/19 11:14 Active 10 ml FLUSH ASDIRECTED PRN Sodium Chloride 0.9% [Saline Flush] Med 11/18/19 11:14 Active 2.5 ml FLUSH ASDIRECTED PRN Saline Lock Insert [OM.PC] Stat Oth 11/18/19 11:14 Ordered Resuscitation Status Routine Resus Stat 11/18/19 15:35 Ordered Medication Orders Acetaminophen (Tylenol) 650 mg PO Q4H PRN PRN Reason: Pain (Mild 1-3)/fever Enoxaparin Sodium (Lovenox) 40 mg SUBCUT Q24H CB Ondansetron HCl (Zofran Odt) 4 mg PO Q4H PRN PRN Reason: nausea, able to take PO Ondansetron HCl (Zofran) 4 mg IVPUSH Q4H PRN PRN Reason: Nausea Sodium Chloride (Saline Flush) 10 ml FLUSH ASDIRECTED PRN PRN Reason: Keep Vein Open Last Admin: 11/18/19 11:41 Dose: 10 ml Documented by: [id number] Sodium Chloride (Saline Flush) 2.5 ml FLUSH ASDIRECTED PRN PRN Reason: Keep Vein Open Last Admin: 11/18/19 11:41 Dose: 2.5 ml Documented by: [id number] Assessment/Plan Comment:: Assessment and Plan: 1. Abdominal and right flank pain secondary to acute pyelonephritis vs colitis: - Admit to med/surg. CT abd/pelvis showed possible wall thickening of right and transverse colon or could represent under-distention of colon. UA positive for nitrites and patient has right flank and right back pain. Patient received dose of IV ceftriaxone in ER. Will obtain blood cultures and start IV zosyn. Keep NPO for now and start IV LR's @ 100 cc/hr. Will order stool cultures. 2. Leukocytosis secondary to #1: - Will monitor with AM labs. 3. DVT prophylaxis: lovenox 40 mg subcut qd. 4. Past medical history of GERD, asthma, anxiety and depression: - Resume home medications.
[2019-11-18] MEDS: Ondansetron 4 MG/2 ML SDV IVPUSH PRN ×2 (16:37→20:55)
[2019-11-18] MEDS: Enoxaparin 40 MG/0.4 ML Syringe SUBCUT SCH (16:37)
[2019-11-18] MEDS: Lactated Ringers 1,000 ML IV SCH (16:51)
[2019-11-18] MEDS: Ketorolac 30 MG/ML SDV IVPUSH PRN (16:52)
[2019-11-18] MEDS: Piperacillin/Tazobactam 3.375 GM in Sodium Chloride 0.9% 100 ML IV SCH ×2 (17:43→23:54)
[2019-11-18] MEDS: Morphine 2 MG/ML SYRINGE IVPUSH PRN (20:54)
[2019-11-19] MEDS: Ketorolac 30 MG/ML SDV IVPUSH PRN ×3 (00:06→20:36)
[2019-11-19] MEDS: Morphine 2 MG/ML SYRINGE IVPUSH PRN ×2 (04:25→10:49)
[2019-11-19] MEDS: Piperacillin/Tazobactam 3.375 GM in Sodium Chloride 0.9% 100 ML IV SCH ×4 (04:28→23:39)
[2019-11-19] MEDS: Lactated Ringers 1,000 ML IV SCH ×2 (05:50→20:26)
[2019-11-19] MEDS: Pantoprazole 40 MG Tab.CR PO SCH (06:40)
[2019-11-19 06:42] LABS: BLOOD UREA NITROGEN,BUN 13 mg/dL (7.0-18.0); CARBON DIOXIDE,CO2 28.2 mmol/L (21.0-32.0); CHLORIDE,CL 99 mmol/L (98-107); GLUCOSE RANDOM 85 mg/dL (74-106); POTASSIUM,K 2.8 mmol/L (3.5-5.1); SODIUM,NA 138 mmol/L (136-145)
[2019-11-19] MEDS: Sertraline 100 MG Tab PO SCH (08:41)
[2019-11-19] MEDS: buPROPion 150 MG Tab.ER PO SCH (08:42)
[2019-11-19] MEDS ORDERED: Potassium Chloride Riders 40 MEQ in Premix Bag 1 BAG IV ONE (08:44)
[2019-11-19] MEDS ORDERED: Piperacillin/Tazobactam 3.375 GM in Sodium Chloride 0.9% 100 ML IV SCH (09:00)
[2019-11-19] MEDS ORDERED: Sertraline 25 MG Tab PO SCH (09:00)
[2019-11-19] MEDS: Ondansetron 4 MG/2 ML SDV IVPUSH PRN (09:15)
[2019-11-19] MEDS ORDERED: Potassium Chloride 20 MEQ Tab.ER PO ONE (10:19)
--- NOTE | 2019-11-19 17:04 | PCM.PN ---
- General Info Date of Service: 11/19/19 Subjective Update: Reports abdominal pain is better today. Denies any vomiting but still a bit nauseous. - Patient Data Vitals - Most Recent: Last Vital Signs Temp 37.4 C 11/19/19 11:00 Pulse 62 11/19/19 11:00 Resp 16 11/19/19 11:00 BP 153/94 H 11/19/19 11:00 Pulse Ox 98 11/19/19 11:00 Weight - Most Recent: 66 kg I&O - Last 24 Hours: Intake & Output 11/19/19 11/19/19 11/19/19 06:59 14:59 22:59 Intake Total 1350 Output Total 500 Balance 850 Lab Results Last 24 Hours: Laboratory Results - last 24 hr 11/19/19 11/19/19 11/19/19 Range/Units 05:53 05:53 05:53 WBC 11.42 H (4.0-11.0) K/uL RBC 4.68 (4.30-5.90) M/uL Hgb 12.5 (12.0-16.0) g/dL Hct 38.4 (36.0-46.0) % MCV 82.1 (80.0-98.0) fL MCH 26.7 L (27.0-32.0) pg MCHC 32.6 (31.0-37.0) g/dL RDW Std Deviation 41.4 (28.0-62.0) fl RDW Coeff of [place] 14 (11.0-15.0) % Plt Count 243 (150-400) K/uL MPV 10.80 (7.40-12.00) fL Neut % (Auto) 62.2 (48.0-80.0) % Lymph % (Auto) 26.0 (16.0-40.0) % [place] % (Auto) 11.0 (0.0-15.0) % Eos % (Auto) 0.6 (0.0-7.0) % Baso % (Auto) 0.2 (0.0-1.5) % Neut # (Auto) 7.1 H (1.4-5.7) K/uL Lymph # (Auto) 3.0 H (0.6-2.4) K/uL [place] # (Auto) 1.3 H (0.0-0.8) K/uL Eos # (Auto) 0.1 (0.0-0.7) K/uL Baso # (Auto) 0.0 (0.0-0.1) K/uL Nucleated RBC % 0.0 /100WBC Nucleated RBCs # 0 K/uL Sodium 138 (136-145) mmol/L Potassium 2.8 L (3.5-5.1) mmol/L Chloride 99 (98-107) mmol/L Carbon Dioxide 28.2 (21.0-32.0) mmol/L BUN 13 (7.0-18.0) mg/dL Creatinine 0.7 (0.6-1.0) mg/dL Est Cr Clr Drug Dosing 94.32 mL/min Estimated GFR (MDRD) > 60.0 ml/min Glucose 85 (74-106) mg/dL Calcium 8.7 (8.5-10.1) mg/dL Magnesium 1.8 (1.8-2.4) mg/dL Total Bilirubin 0.7 (0.2-1.0) mg/dL AST 13 L (15-37) IU/L ALT 23 (14-63) IU/L Alkaline Phosphatase 59 (46-116) U/L Total Protein 6.5 (6.4-8.2) g/dL Albumin 3.6 (3.4-5.0) g/dL Globulin 2.9 (2.6-4.0) g/dL Albumin/Globulin Ratio 1.2 (0.9-1.6) Santosh Results Last 24 Hours: Microbiology 11/18/19 16:55 Anaerobic Blood Culture - Final Blood - Venous 11/18/19 17:05 Anaerobic Blood Culture - Final Blood - Venous - Lab Draw Med Orders - Current: Current Medications Acetaminophen (Tylenol) 650 mg PO Q4H PRN PRN Reason: Pain (Mild 1-3)/fever Bupropion HCl (Wellbutrin Xl) 150 mg PO DAILY [facility] Last Admin: 11/19/19 08:42 Dose: 150 mg Documented by: Enoxaparin Sodium (Lovenox) 40 mg SUBCUT Q24H [facility] Lactated Ringer's (Ringers, Lactated) 1,000 mls @ 100 mls/hr IV ASDIRECTED [facility] Last Admin: 11/19/19 05:50 Dose: 100 mls/hr Documented by: Piperacillin Sod/Tazobactam (Sod 3.375 gm/ Sodium Chloride) 100 mls @ 200 mls/hr IV Q6H [facility] Last Admin: 11/19/19 11:42 Dose: 200 mls/hr Documented by: Ketorolac Tromethamine (Toradol) 30 mg IVPUSH Q6H PRN PRN Reason: Pain Last Admin: 11/19/19 06:07 Dose: 30 mg Documented by: Morphine Sulfate (Morphine) 2 mg IVPUSH Q4H PRN PRN Reason: Pain Last Admin: 11/19/19 10:49 Dose: 2 mg Documented by: Ondansetron HCl (Zofran Odt) 4 mg PO Q4H PRN PRN Reason: nausea, able to take PO Ondansetron HCl (Zofran) 4 mg IVPUSH Q4H PRN PRN Reason: Nausea Last Admin: 11/19/19 09:15 Dose: 4 mg Documented by: Pantoprazole Sodium (Protonix) 40 mg PO ACBREAKFAST [facility] Last Admin: 11/19/19 06:40 Dose: 40 mg Documented by: Sertraline HCl (Zoloft) 100 mg PO DAILY [facility] Last Admin: 11/19/19 08:41 Dose: 100 mg Documented by: Sodium Chloride (Saline Flush) 10 ml FLUSH ASDIRECTED PRN PRN Reason: Keep Vein Open Last Admin: 11/18/19 11:41 Dose: 10 ml Documented by: Sodium Chloride (Saline Flush) 2.5 ml FLUSH ASDIRECTED PRN PRN Reason: Keep Vein Open Last Admin: 11/18/19 11:41 Dose: 2.5 ml Documented by: Discontinued Medications Enoxaparin Sodium (Lovenox) 40 mg SUBCUT Q24H [facility] Last Admin: 11/18/19 16:37 Dose: 40 mg Documented by: Lactated Ringer's (Ringers, Lactated) 1,000 mls @ 999 mls/hr IV .BOLUS ONE Stop: 11/18/19 12:33 Last Admin: 11/18/19 11:40 Dose: 999 mls/hr Documented by: Ceftriaxone Sodium/Dextrose 1 (gm/ Premix) 50 mls @ 100 mls/hr IV ONETIME ONE Stop: 11/18/19 12:55 Last Admin: 11/18/19 13:24 Dose: 100 mls/hr Documented by: Piperacillin Sod/Tazobactam (Sod 3.375 gm/ Sodium Chloride) 100 mls @ 200 mls/hr IV Q6H CB Potassium Chloride 40 meq/ (Premix) 100 mls @ 25 mls/hr IV ONETIME ONE Stop: 11/19/19 12:43 Last Admin: 11/19/19 09:40 Dose: 25 mls/hr Documented by: Iopamidol (Isovue Multipack-370 (76%)) 80 ml IVPUSH ONETIME STA Stop: 11/18/19 12:38 Last Admin: 11/18/19 12:38 Dose: 80 ml Documented by: Metoclopramide HCl (Reglan) 5 mg IVPUSH ONETIME ONE Stop: 11/18/19 13:58 Last Admin: 11/18/19 14:30 Dose: 5 mg Documented by: Ondansetron HCl (Zofran) 4 mg IVPUSH ONETIME ONE Stop: 11/18/19 11:34 Last Admin: 11/18/19 11:40 Dose: 4 mg Documented by: Bupropion 75 Mg 1 each PO DAILY CB Potassium Chloride (Klor-Con M20) 40 meq PO ONETIME ONE Stop: 11/19/19 10:20 Last Admin: 11/19/19 10:51 Dose: 40 meq Documented by: Sertraline HCl (Zoloft) 25 mg PO DAILY CB - Exam General: Alert, Oriented, Cooperative, No Acute Distress Lungs: Clear to Auscultation, Normal Respiratory Effort Cardiovascular: Regular Rate, Regular Rhythm GI/Abdominal Exam: Normal Bowel Sounds, Soft, Non-Tender, No Distention Extremities: Normal Inspection, No Pedal Edema Skin: Warm, Dry, Intact Sepsis Event Note - Evaluation Sepsis Screening Result: No Definite Risk - Focused Exam Vital Signs: Vital Signs Temp Pulse Resp BP Pulse Ox 11/19/19 11:00 37.4 C 62 16 153/94 H 98 11/19/19 07:05 36.2 C 54 L 18 118/75 96 Date Exam was Performed: 11/19/19 Time Exam was Performed: 18:52 - Problem List Review Problem List Initiated/Reviewed/Updated: Yes - My Orders Last 24 Hours: My Active Orders 11/18/19 16:38 Ketorolac [Toradol] 30 mg IVPUSH Q6H PRN 11/18/19 16:39 Blood Culture x2 Reflex Set [OM.PC] Stat 11/18/19 16:45 Lactated Ringers [Ringers, Lactated] 1,000 ml IV ASDIRECTED 11/18/19 16:55 CULTURE BLOOD [BC] Stat 11/18/19 17:05 CULTURE BLOOD [BC] Stat 11/18/19 17:24 Piperacillin/Tazobactam [Piperacil-Tazobact] 3.375 gm Sodium Chloride 0.9% [Normal Saline] 100 ml IV Q6H 11/19/19 07:30 Pantoprazole [ProTONIX] 40 mg PO ACBREAKFAST 11/19/19 09:00 Sertraline [Zoloft] 100 mg PO DAILY buPROPion [Wellbutrin XL] 150 mg PO DAILY 11/19/19 17:30 Enoxaparin [Lovenox] 40 mg SUBCUT Q24H - Plan Plan:: Assessment and Plan: 1. Abdominal and right flank pain secondary to acute pyelonephritis vs colitis: - Continue IV zosyn. Will advance to soft diet. Continue IV LR's maintenance. - CT abd/pelvis showed possible wall thickening of right and transverse colon or could represent under-distention of colon. UA positive for nitrites and patient has right flank and right back pain. 2. Leukocytosis secondary to #1, improved: - Will monitor with AM labs. 3. Hypokalemia: - Replete with IV 40 mEq and PO 40 mEq. Recheck with AM labs. 4. DVT prophylaxis: lovenox 40 mg subcut qd. 5. Past medical history of GERD, asthma, anxiety and depression: - Resume home medications.
[2019-11-19] MEDS: Enoxaparin 40 MG/0.4 ML Syringe SUBCUT SCH (17:10)
[2019-11-19] MEDS ORDERED: Enoxaparin 40 MG/0.4 ML Syringe SUBCUT SCH (17:30)
[2019-11-20 01:04] LABS: BLOOD UREA NITROGEN,BUN 7 mg/dL (7.0-18.0); CHLORIDE,CL 102 mmol/L (98-107); GLUCOSE RANDOM 76 mg/dL (74-106); POTASSIUM,K 3.7 mmol/L (3.5-5.1); SODIUM,NA 137 mmol/L (136-145)
[2019-11-20] MEDS: Morphine 2 MG/ML SYRINGE IVPUSH PRN (04:44)
[2019-11-20] MEDS: Piperacillin/Tazobactam 3.375 GM in Sodium Chloride 0.9% 100 ML IV SCH ×2 (04:48→11:42)
[2019-11-20 06:19] LABS: BLOOD UREA NITROGEN,BUN 5 mg/dL (7.0-18.0); CARBON DIOXIDE,CO2 26.5 mmol/L (21.0-32.0); CHLORIDE,CL 102 mmol/L (98-107); GLUCOSE RANDOM 76 mg/dL (74-106); POTASSIUM,K 4.1 mmol/L (3.5-5.1); SODIUM,NA 136 mmol/L (136-145)
[2019-11-20] MEDS: Pantoprazole 40 MG Tab.CR PO SCH (06:36)
[2019-11-20] MEDS: Sertraline 100 MG Tab PO SCH (09:49)
[2019-11-20] MEDS: buPROPion 150 MG Tab.ER PO SCH (09:50)
[2019-11-20] MEDS: Lactated Ringers 1,000 ML IV SCH (10:01)
[2019-11-20 12:32] VITALS: BP 103/74; PULSE 64
--- NOTE | 2019-11-20 12:51 | PCM.DCSUM1 ---
<Carlos Otero - Last Filed: 11/20/19 12:48> Discharge Summary - Hospital Course Free Text/Narrative:: 23-year-old female admitted for abdominal pain secondary to acute pyelonephritis vs colitis. She has a PMH of asthma, GERD, anxiety, depression and PTSD. On admission, patient had WBC 16, UA positive for nitrites and 1+ bacteria, CXR negative and CT abd showed wall thickening of right and transverse colon. Per radiology, this could also represent under-distention of colon. Blood cultures were negative. Patient treated with IV zosyn and IV fluids. On day of discharge, leukocytosis had resolved, patient tolerating PO and had resolution of her abdominal and flank pain. She was discharged on 8 more days of ciprofloxacin and metronidazole. Advised to follow-up with PCP. - Discharge Data Discharge Date: 11/20/19 Discharge Disposition: Home, Self-Care 01 Condition: Stable - Referral to Home Health Primary Care Physician: Frandy Diaz MD - Patient Instructions Diet: Usual Diet as Tolerated Activity: As Tolerated Notify Provider of: Fever, Increased Pain, Swelling and Redness, Drainage, Nausea and/or Vomiting - Discharge Plan *PRESCRIPTION DRUG MONITORING PROGRAM REVIEWED*: Not Applicable *COPY OF PRESCRIPTION DRUG MONITORING REPORT IN PATIENT SOPHIE: Not Applicable Prescriptions/Med Rec: Ciprofloxacin [Ciprofloxacin HCl] 500 mg PO BID 8 Days #16 tab metroNIDAZOLE [Metronidazole] 500 mg PO Q6H 8 Days #32 tablet Home Medications: Home Meds Pantoprazole [ProTONIX] 40 mg PO DAILY 09/17/19 [History] Ondansetron [Zofran] 4 mg PO Q8H PRN #15 tab 11/15/19 [Rx] Sertraline [Zoloft] 100 mg PO DAILY 11/15/19 [History] buPROPion HCL [Wellbutrin Xl] 150 mg PO DAILY 11/18/19 [History] Ciprofloxacin [Ciprofloxacin HCl] 500 mg PO BID 8 Days #16 tab 11/20/19 [Rx] metroNIDAZOLE [Metronidazole] 500 mg PO Q6H 8 Days #32 tablet 11/20/19 [Rx] Oxygen Therapy Mode: Room Air Patient Handouts: Pyelonephritis, Adult, [id number] Referrals: [facility] [Outside] Frandy Diaz MD [Primary Care Provider] - 11/26/19 9:45 am (Arrive 15 minutes early with a photo ID, insurance card, and a mask. ) - Discharge Summary/Plan Comment DC Time >30 min.: No - Patient Data Vitals - Most Recent: Last Vital Signs Temp 36.6 C 11/20/19 12:00 Pulse 64 11/20/19 12:00 Resp 16 11/20/19 12:00 BP 103/74 11/20/19 12:00 Pulse Ox 96 11/20/19 12:00 Weight - Most Recent: 66 kg I&O - Last 24 hours: Intake & Output 11/19/19 11/20/19 11/20/19 22:59 06:59 14:59 Intake Total 1100 2358 Output Total 1000 2900 Balance 100 -542 Lab Results - Last 24 hrs: Laboratory Results - last 24 hr 11/20/19 11/20/19 11/20/19 Range/Units 00:45 05:15 05:15 WBC 7.87 (4.0-11.0) K/uL RBC 4.60 (4.30-5.90) M/uL Hgb 12.3 (12.0-16.0) g/dL Hct 38.5 (36.0-46.0) % MCV 83.7 (80.0-98.0) fL MCH 26.7 L (27.0-32.0) pg MCHC 31.9 (31.0-37.0) g/dL RDW Std Deviation 42.6 (28.0-62.0) fl RDW Coeff of [place] 14 (11.0-15.0) % Plt Count 235 (150-400) K/uL MPV 10.70 (7.40-12.00) fL Neut % (Auto) 50.6 (48.0-80.0) % Lymph % (Auto) 36.5 (16.0-40.0) % Starr % (Auto) 10.0 (0.0-15.0) % Eos % (Auto) 2.4 (0.0-7.0) % Baso % (Auto) 0.5 (0.0-1.5) % Neut # (Auto) 4.0 (1.4-5.7) K/uL Lymph # (Auto) 2.9 H (0.6-2.4) K/uL Starr # (Auto) 0.8 (0.0-0.8) K/uL Eos # (Auto) 0.2 (0.0-0.7) K/uL Baso # (Auto) 0.0 (0.0-0.1) K/uL Nucleated RBC % 0.0 /100WBC Nucleated RBCs # 0 K/uL Sodium 137 136 (136-145) mmol/L Potassium 3.7 4.1 (3.5-5.1) mmol/L Chloride 102 102 (98-107) mmol/L Carbon Dioxide 27.0 26.5 (21.0-32.0) mmol/L BUN 7 5 L (7.0-18.0) mg/dL Creatinine 0.7 0.8 (0.6-1.0) mg/dL Est Cr Clr Drug Dosing 94.32 82.53 mL/min Estimated GFR (MDRD) > 60.0 > 60.0 ml/min Glucose 76 76 (74-106) mg/dL Calcium 8.1 L 8.2 L (8.5-10.1) mg/dL Total Bilirubin 0.7 (0.2-1.0) mg/dL AST 13 L (15-37) IU/L ALT 22 (14-63) IU/L Alkaline Phosphatase 61 (46-116) U/L Total Protein 6.6 (6.4-8.2) g/dL Albumin 3.6 (3.4-5.0) g/dL Globulin 3.0 (2.6-4.0) g/dL Albumin/Globulin Ratio 1.2 (0.9-1.6) HARVEY Results - Last 24 hrs: Microbiology 11/18/19 11:34 Urine Culture - Final Urine, Voided MIXED PAUL >100,000 CFU/ML 11/18/19 17:05 Aerobic Blood Culture - Preliminary Blood - Venous - Lab Draw NO GROWTH AFTER 1 DAY Anaerobic Blood Culture - Final 11/18/19 16:55 Aerobic Blood Culture - Preliminary Blood - Venous NO GROWTH AFTER 1 DAY Anaerobic Blood Culture - Final Med Orders - Current: Current Medications Acetaminophen (Tylenol) 650 mg PO Q4H PRN PRN Reason: Pain (Mild 1-3)/fever Bupropion HCl (Wellbutrin Xl) 150 mg PO DAILY CB Last Admin: 11/20/19 09:50 Dose: 150 mg Documented by: Enoxaparin Sodium (Lovenox) 40 mg SUBCUT Q24H [facility] Last Admin: 11/19/19 17:10 Dose: 40 mg Documented by: Lactated Ringer's (Ringers, Lactated) 1,000 mls @ 100 mls/hr IV ASDIRECTED [facility] Last Admin: 11/20/19 10:01 Dose: 100 mls/hr Documented by: Piperacillin Sod/Tazobactam (Sod 3.375 gm/ Sodium Chloride) 100 mls @ 200 mls/hr IV Q6H [facility] Last Admin: 11/20/19 11:42 Dose: 200 mls/hr Documented by: Ketorolac Tromethamine (Toradol) 30 mg IVPUSH Q6H PRN PRN Reason: Pain Last Admin: 11/19/19 20:36 Dose: 30 mg Documented by: Morphine Sulfate (Morphine) 2 mg IVPUSH Q4H PRN PRN Reason: Pain Last Admin: 11/20/19 04:44 Dose: 2 mg Documented by: Ondansetron HCl (Zofran Odt) 4 mg PO Q4H PRN PRN Reason: nausea, able to take PO Ondansetron HCl (Zofran) 4 mg IVPUSH Q4H PRN PRN Reason: Nausea Last Admin: 11/19/19 09:15 Dose: 4 mg Documented by: Pantoprazole Sodium (Protonix) 40 mg PO ACBREAKFAST [facility] Last Admin: 11/20/19 06:36 Dose: 40 mg Documented by: Sertraline HCl (Zoloft) 100 mg PO DAILY [facility] Last Admin: 11/20/19 09:49 Dose: 100 mg Documented by: Sodium Chloride (Saline Flush) 10 ml FLUSH ASDIRECTED PRN PRN Reason: Keep Vein Open Last Admin: 11/18/19 11:41 Dose: 10 ml Documented by: Sodium Chloride (Saline Flush) 2.5 ml FLUSH ASDIRECTED PRN PRN Reason: Keep Vein Open Last Admin: 11/18/19 11:41 Dose: 2.5 ml Documented by: Discontinued Medications Enoxaparin Sodium (Lovenox) 40 mg SUBCUT Q24H [facility] Last Admin: 11/19/19 17:10 Dose: Not Given Documented by: Lactated Ringer's (Ringers, Lactated) 1,000 mls @ 999 mls/hr IV .BOLUS ONE Stop: 11/18/19 12:33 Last Admin: 11/18/19 11:40 Dose: 999 mls/hr Documented by: Ceftriaxone Sodium/Dextrose 1 (gm/ Premix) 50 mls @ 100 mls/hr IV ONETIME ONE Stop: 11/18/19 12:55 Last Admin: 11/18/19 13:24 Dose: 100 mls/hr Documented by: Piperacillin Sod/Tazobactam (Sod 3.375 gm/ Sodium Chloride) 100 mls @ 200 mls/hr IV Q6H CB Potassium Chloride 40 meq/ (Premix) 100 mls @ 25 mls/hr IV ONETIME ONE Stop: 11/19/19 12:43 Last Admin: 11/19/19 09:40 Dose: 25 mls/hr Documented by: Iopamidol (Isovue Multipack-370 (76%)) 80 ml IVPUSH ONETIME STA Stop: 11/18/19 12:38 Last Admin: 11/18/19 12:38 Dose: 80 ml Documented by: Metoclopramide HCl (Reglan) 5 mg IVPUSH ONETIME ONE Stop: 11/18/19 13:58 Last Admin: 11/18/19 14:30 Dose: 5 mg Documented by: Ondansetron HCl (Zofran) 4 mg IVPUSH ONETIME ONE Stop: 11/18/19 11:34 Last Admin: 11/18/19 11:40 Dose: 4 mg Documented by: Bupropion 75 Mg 1 each PO DAILY CB Potassium Chloride (Klor-Con M20) 40 meq PO ONETIME ONE Stop: 11/19/19 10:20 Last Admin: 11/19/19 10:51 Dose: 40 meq Documented by: Sertraline HCl (Zoloft) 25 mg PO DAILY CB <Loy Robles - Last Filed: 11/21/19 11:45> Discharge Summary - Referral to Home Health Primary Care Physician: Frandy Diaz MD - Patient Data Vitals - Most Recent: Last Vital Signs Temp 36.6 C 11/20/19 12:00 Pulse 64 11/20/19 12:00 Resp 16 11/20/19 12:00 BP 103/74 11/20/19 12:00 Pulse Ox 96 11/20/19 12:00 HARVEY Results - Last 24 hrs: Microbiology 11/18/19 17:05 Aerobic Blood Culture - Preliminary Blood - Venous - Lab Draw NO GROWTH AFTER 2 DAYS Anaerobic Blood Culture - Final 11/18/19 16:55 Aerobic Blood Culture - Preliminary Blood - Venous NO GROWTH AFTER 2 DAYS Anaerobic Blood Culture - Final 11/18/19 11:34 Urine Culture - Final Urine, Voided MIXED PAUL >100,000 CFU/ML Med Orders - Current: Current Medications Discontinued Medications Acetaminophen (Tylenol) 650 mg PO Q4H PRN PRN Reason: Pain (Mild 1-3)/fever Bupropion HCl (Wellbutrin Xl) 150 mg PO DAILY [facility] Last Admin: 11/20/19 09:50 Dose: 150 mg Documented by: Enoxaparin Sodium (Lovenox) 40 mg SUBCUT Q24H [facility] Last Admin: 11/19/19 17:10 Dose: Not Given Documented by: Enoxaparin Sodium (Lovenox) 40 mg SUBCUT Q24H [facility] Last Admin: 11/19/19 17:10 Dose: 40 mg Documented by: Lactated Ringer's (Ringers, Lactated) 1,000 mls @ 999 mls/hr IV .BOLUS ONE Stop: 11/18/19 12:33 Last Admin: 11/18/19 11:40 Dose: 999 mls/hr Documented by: Ceftriaxone Sodium/Dextrose 1 (gm/ Premix) 50 mls @ 100 mls/hr IV ONETIME ONE Stop: 11/18/19 12:55 Last Admin: 11/18/19 13:24 Dose: 100 mls/hr Documented by: Lactated Ringer's (Ringers, Lactated) 1,000 mls @ 100 mls/hr IV ASDIRECTED [facility] Last Admin: 11/20/19 10:01 Dose: 100 mls/hr Documented by: Piperacillin Sod/Tazobactam (Sod 3.375 gm/ Sodium Chloride) 100 mls @ 200 mls/hr IV Q6H [facility] Piperacillin Sod/Tazobactam (Sod 3.375 gm/ Sodium Chloride) 100 mls @ 200 mls/hr IV Q6H [facility] Last Admin: 11/20/19 11:42 Dose: 200 mls/hr Documented by: Potassium Chloride 40 meq/ (Premix) 100 mls @ 25 mls/hr IV ONETIME ONE Stop: 11/19/19 12:43 Last Admin: 11/19/19 09:40 Dose: 25 mls/hr Documented by: Iopamidol (Isovue Multipack-370 (76%)) 80 ml IVPUSH ONETIME STA Stop: 11/18/19 12:38 Last Admin: 11/18/19 12:38 Dose: 80 ml Documented by: Ketorolac Tromethamine (Toradol) 30 mg IVPUSH Q6H PRN PRN Reason: Pain Last Admin: 11/19/19 20:36 Dose: 30 mg Documented by: Metoclopramide HCl (Reglan) 5 mg IVPUSH ONETIME ONE Stop: 11/18/19 13:58 Last Admin: 11/18/19 14:30 Dose: 5 mg Documented by: Morphine Sulfate (Morphine) 2 mg IVPUSH Q4H PRN PRN Reason: Pain Last Admin: 11/20/19 04:44 Dose: 2 mg Documented by: Ondansetron HCl (Zofran) 4 mg IVPUSH ONETIME ONE Stop: 11/18/19 11:34 Last Admin: 11/18/19 11:40 Dose: 4 mg Documented by: Ondansetron HCl (Zofran Odt) 4 mg PO Q4H PRN PRN Reason: nausea, able to take PO Ondansetron HCl (Zofran) 4 mg IVPUSH Q4H PRN PRN Reason: Nausea Last Admin: 11/19/19 09:15 Dose: 4 mg Documented by: Pantoprazole Sodium (Protonix) 40 mg PO ACBREAKFAST [facility] Last Admin: 11/20/19 06:36 Dose: 40 mg Documented by: Bupropion 75 Mg 1 each PO DAILY [facility] Potassium Chloride (Klor-Con M20) 40 meq PO ONETIME ONE Stop: 11/19/19 10:20 Last Admin: 11/19/19 10:51 Dose: 40 meq Documented by: Sertraline HCl (Zoloft) 25 mg PO DAILY CB Sertraline HCl (Zoloft) 100 mg PO DAILY [facility] Last Admin: 11/20/19 09:49 Dose: 100 mg Documented by: Sodium Chloride (Saline Flush) 10 ml FLUSH ASDIRECTED PRN PRN Reason: Keep Vein Open Last Admin: 11/18/19 11:41 Dose: 10 ml Documented by: Sodium Chloride (Saline Flush) 2.5 ml FLUSH ASDIRECTED PRN PRN Reason: Keep Vein Open Last Admin: 11/18/19 11:41 Dose: 2.5 ml Documented by: - Free Text/Narrative Note: I have seen and evaluated the patient with the resident. I have discussed findings and treatment plan with the resident. I agree with the assessment and plan outlined in the following note.
== END 2019-11-20 12:35 | disposition home or self-care (01) ==
LOC: MW.ED 11:10 → MW.MS 14:41
PROVIDERS: ADMIT Internal Medicine; ATTEND Internal Medicine
DX: R10.11 Right upper quadrant pain (principal); R10.13 Epigastric pain; R10.12 Left upper quadrant pain; R11.2 Nausea with vomiting, unspecified; E87.6 Hypokalemia; K21.9 Gastro-esophageal reflux disease without esophagitis; J45.909 Unspecified asthma, uncomplicated; F41.9 Anxiety disorder, unspecified; F32.9 Major depressive disorder, single episode, unspecified; F43.10 Post-traumatic stress disorder, unspecified; D72.829 Elevated white blood cell count, unspecified; K63.89 Other specified diseases of intestine; R82.998 Other abnormal findings in urine; Z20.828 Contact with and (suspected) exposure to other viral communicable diseases; Z88.2 Allergy status to sulfonamides; Z79.899 Other long term (current) drug therapy
CPT/HCPCS: 36415; 71046; 74177; 80048; 80053; 81001; 83605; 83690; 83735; 84484; 84703; 85025; 87040; 87086; 87635; 93005; 96361; 96365; 96375; 99285; A9270; J0696; J1650; J1885; J2270; J2405; J2543; J2765; J3480; J7050; J7120; Q9967; 96372; 96376; 99284; G0378; U0002

== ENCOUNTER 2020-06-13 01:03 | Emergency (ER) | payer SELFPAY ==
[2020-06-13] MEDS ORDERED: Sodium Chloride 0.9% 1,000 ML IV ONE (01:23)
[2020-06-13] MEDS ORDERED: Sodium Chloride 0.9% 10 ML Syringe FLUSH PRN (01:23)
[2020-06-13] MEDS ORDERED: Ondansetron 4 MG/2 ML SDV IVPUSH ONE (01:23)
[2020-06-13] MEDS ORDERED: Ketorolac 30 MG/ML SDV IVPUSH ONE (01:23)
[2020-06-13] MEDS ORDERED: Sodium Chloride 0.9% 2.5 ML Syringe FLUSH PRN (01:23)
[2020-06-13 01:57] LABS: BLOOD UREA NITROGEN,BUN 11 mg/dL (7.0-18.0); CARBON DIOXIDE,CO2 26.6 mmol/L (21.0-32.0); CHLORIDE,CL 104 mmol/L (98-107); GLUCOSE RANDOM 113 mg/dL (74-106); POTASSIUM,K 3.6 mmol/L (3.5-5.1); SODIUM,NA 141 mmol/L (136-145)
--- NOTE | 2020-06-13 02:28 | CT ---
INDICATION: Abdominal pain and vomiting TECHNIQUE: Axial images were obtained from the diaphragm to the pubic symphysis. Reformats were obtained in the coronal and sagittal plane. IV Contrast: None Oral Contrast: None COMPARISON: None. FINDINGS: Lower chest: Unremarkable. Liver: Unremarkable. Normal in size and attenuation. No masses. Gallbladder and bile ducts: Unremarkable. No stones or inflammation. No biliary dilatation. Spleen: Unremarkable. Normal in size without mass. Pancreas: Unremarkable. No mass or inflammation. Adrenal glands: Unremarkable. No nodules. Kidneys: Unremarkable. No masses, stones, or hydronephrosis. Vasculature: Unremarkable. GI tract: Stomach is unremarkable. No dilated loops of large or small intestine. Appendix seen and is unremarkable. Pelvis: Bladder is unremarkable. Uterus anteverted with an intrauterine device. No adnexal mass seen. Bones: Unremarkable for age. IMPRESSION: 1. No nephrolithiasis or hydronephrosis. 2. No dilated bowel or localized inflammation. No acute findings to explain the patient`s pain. Please note that all CT scans at this facility use dose modulation, iterative reconstruction, and/or weight-based dosing when appropriate to reduce radiation dose to as low as reasonably achievable. Dictated by Tito Parisi MD @ Jun 13 2020 2:20AM Signed by Dr. Tito Parisi @ Jun 13 2020 2:27AM
--- NOTE | 2020-06-13 03:07 | EDM.PDOC ---
ED HPI GENERAL MEDICAL PROBLEM - General Chief Complaint: EFFICIENCY EXPERT Problem Stated Complaint: IUD ISSUES, VOMITING Time Seen by Provider: 06/13/20 01:13 - History of Present Illness INITIAL COMMENTS - FREE TEXT/NARRATIVE: HISTORY AND PHYSICAL: History of present illness: This is a 24-year-old female who presents ER today complaining of pain to her lower abdomen that started on Saturday and got worse on Saturday and Saturday. Patient reports that her menses started Saturday with a small amount of bleeding and has been progressively getting worse. Patient denies any recent fevers, shakes, chills. Patient reports she had nausea and vomiting x4 daily for the last 2 days. Patient has any diarrhea. Patient denies any dysuria frequency urgency. Patient denies any chest pain or shortness of breath. Patient denies any melena or bright red blood per rectum. Patient denies any hematemesis or coffee-ground emesis. Patient reports that she has an IUD in place that is been there for greater than 6 months. Patient reports she is sexually active with 2 partners in the last 6 months. Patient has any vaginal discharge. Review of systems: As per history of present illness and below otherwise all systems reviewed and negative. Past medical history: As per history of present illness and as reviewed below otherwise noncontributory. Surgical history: As per history of present illness and as reviewed below otherwise nonco ntributory. Social history: No reported history of drug or alcohol abuse. Family history: As per history of present illness and as reviewed below otherwise noncontributory. Physical exam: This patient was seen and evaluated during the 2019 SARS-CoV-2 novel coronavirus pandemic period. Community viral transmission is ongoing at time of this encounter and the emergency department is operating under pandemic response procedures. Constitutional: Patient is oriented to person, place, and time. Appears well- developed and well-nourished. No distress. HEENT: Moist mucous membranes Head: Normocephalic and atraumatic Eyes: Right eye exhibits no discharge. Left eye exhibits no discharge. No scleral icterus Neck: Normal range of motion. No tracheal deviation present. Cardiovascular: Normal rate and regular rhythm. Pulmonary: Effort normal, no respiratory distress. Abd: Soft, nondistended, no rebound/guarding, no psoas or obturator signs, no tenderness at Mcberney's point, no Ledesma's sign. Pt does not present with an exam that would be consistent with an acute surgical abdomen at this time, tenderness palpation in the midepigastric region. Mild tenderness palpation in the suprapubic region Musculoskeletal: Normal range of motion Neurologic: Alert and oriented to person, place and time. Skin: [place], warm and dry. Psychiatric: Normal mood and affect. Behavior is normal. Judgment and thought content normal. Nursing note and vital signs have been reviewed Diagnostics: CT scan of the abdomen pelvis, unremarkable CBC, CMP, urinalysis unremarkable Therapeutics: NSS x1 L, Zofran, Toradol Assessment and plan: 24-year-old female who presents ER today with with abdominal pain of unclear etiology. Although patient reports the pain was greatest in the suprapubic region, on exam patient does have greatest discomfort in the midepigastric area. Patient thinks it secondary to her episodes of emesis yesterday. Patient's presentation does not appear to be consistent with an acute surgical abdomen. Patient has been given Toradol and Zofran in the ED into reports that her pain has completely resolved at this time and she feels much improved. Patient be d ischarged home with a prescription for Zofran and ibuprofen and instructed to follow-up with her primary care physician for reevaluation. 3 AM: Repeat abdominal exam: Nontender to palpation, abd: Soft, nondistended, no rebound/guarding, no psoas or obturator signs, no tenderness at Mcberney's point, no Ledesma's sign. Pt does not present with an exam that would be consistent with an acute surgical abdomen at this time. Reassessment at the time of disposition demonstrates that the patient is in no acute distress. The patient has remained stable throughout the entire ED visit and is without objective evidence for acute process requiring urgent intervention or hospitalization. The patient is stable for discharge, counseling is provided as documented above, discussed symptomatic treatment and specific conditions for return. I have spoken with the patient/caregiver and discussed todays findings, in addition to providing specific details for the plan of care. Questions are answered and there is agreement with the plan. Definitive disposition and diagnosis as appropriate pending reevaluation and review of above. lower back/pelvis Pain Score (Numeric/FACES): 8 - Related Data Allergies Allergy/AdvReac Type Severity Reaction Status Date / Time Sulfa (Sulfonamide Allergy Hives Verified 02/22/21 01:13 Antibiotics) Home Meds: Home Meds Pantoprazole [ProTONIX] 40 mg PO DAILY 09/17/19 [History] Ondansetron [Zofran] 4 mg PO Q8H PRN #15 tab 11/15/19 [Rx] Sertraline [Zoloft] 100 mg PO DAILY 11/15/19 [History] buPROPion HCL [Wellbutrin Xl] 150 mg PO DAILY 11/18/19 [History] Ciprofloxacin [Ciprofloxacin HCl] 500 mg PO BID 8 Days #16 tab 11/20/19 [Rx] Ibuprofen 600 mg PO Q6HR PRN #30 tablet 06/13/20 [Rx] Ondansetron [Zofran ODT] 4 mg PO Q6H PRN #12 tab.dis 06/13/20 [Rx] Past Medical History - Past Health History Medical/Surgical History: Denies Medical/Surgical History HEENT History: Reports: Other (See Below) Other HEENT History: wears glasses/contacts, chronic sinus infections Cardiovascular History: Reports: None Respiratory History: Reports: Asthma, Other (See Below) Other Respiratory History: pleursiy Gastrointestinal History: Reports: GERD, Other (See Below) Other Gastrointestinal History: epigastric pain Genitourinary History: Reports: None Other Genitourinary History: kidney infection EFFICIENCY EXPERT History: Reports: None Other EFFICIENCY EXPERT History: IUD placed Musculoskeletal History: Reports: None Neurological History: Reports: Migraines Psychiatric History: Reports: Anxiety, Depression, PTSD Endocrine/Metabolic History: Reports: None Hematologic History: Reports: None Immunologic History: Reports: None Oncologic (Cancer) History: Reports: None Dermatologic History: Reports: None - Infectious Disease History Infectious Disease History: Reports: Shingles - Past Surgical History Head Surgeries/Procedures: Reports: None HEENT Surgical History: Reports: Tonsillectomy, Other (See Below) Other HEENT Surgeries/Procedures: Ear canal surgery Cardiovascular Surgical History: Reports: None Respiratory Surgical History: Reports: None GI Surgical History: Reports: None Female Surgical History: Reports: None Endocrine Surgical History: Reports: None Neurological Surgical History: Reports: None Musculoskeletal Surgical History: Reports: None Oncologic Surgical History: Reports: None Dermatological Surgical History: Reports: None Social & Family History - Family History Family Medical History: No Pertinent Family History - Caffeine Use Caffeine Use: Reports: None - Recreational Drug Use Recreational Drug Use: No ED ROS GENERAL - Review of Systems Review Of Systems: See Below ED EXAM, GENERAL - Physical Exam Exam: See Below Course - Vital Signs Last Recorded V/S: Last Vital Signs Temp 97.6 F 06/13/20 01:15 Pulse 97 06/13/20 01:15 Resp 18 06/13/20 01:15 BP 106/86 06/13/20 01:15 Pulse Ox 76 L 06/13/20 01:15 - Orders/Labs/Meds Orders: Active Orders 24 hr Category Date Time Status Sodium Chloride 0.9% [Saline Flush] Med 06/13/20 01:23 Active 10 ml FLUSH ASDIRECTED PRN Sodium Chloride 0.9% [Saline Flush] Med 06/13/20 01:23 Active 2.5 ml FLUSH ASDIRECTED PRN Saline Lock Insert [OM.PC] Stat Oth 06/13/20 01:24 Ordered Medication Orders Sodium Chloride (Saline Flush) 10 ml FLUSH ASDIRECTED PRN PRN Reason: Keep Vein Open Last Admin: 06/13/20 01:31 Dose: 10 ml Documented by: LORETTA Sodium Chloride (Saline Flush) 2.5 ml FLUSH ASDIRECTED PRN PRN Reason: Keep Vein Open Last Admin: 06/13/20 01:30 Dose: 2.5 ml Documented by: LORETTA Labs: Laboratory Tests 06/13/20 06/13/20 06/13/20 Range/Units 01:10 01:10 01:31 WBC 11.16 H (4.0-11.0) K/uL RBC 4.53 (4.30-5.90) M/uL Hgb 12.7 (12.0-16.0) g/dL Hct 38.1 (36.0-46.0) % MCV 84.1 (80.0-98.0) fL MCH 28.0 (27.0-32.0) pg MCHC 33.3 (31.0-37.0) g/dL RDW Std Deviation 43.2 (28.0-62.0) fl RDW Coeff of [place] 14 (11.0-15.0) % Plt Count 295 (150-400) K/uL MPV 10.30 (7.40-12.00) fL Neut % (Auto) 53.1 (48.0-80.0) % Lymph % (Auto) 35.6 (16.0-40.0) % [place] % (Auto) 8.8 (0.0-15.0) % Eos % (Auto) 2.2 (0.0-7.0) % Baso % (Auto) 0.3 (0.0-1.5) % Neut # (Auto) 5.9 H (1.4-5.7) K/uL Lymph # (Auto) 4.0 H (0.6-2.4) K/uL [place] # (Auto) 1.0 H (0.0-0.8) K/uL Eos # (Auto) 0.3 (0.0-0.7) K/uL Baso # (Auto) 0.0 (0.0-0.1) K/uL Nucleated RBC % 0.0 /100WBC Nucleated RBCs # 0 K/uL Sodium (136-145) mmol/L Potassium (3.5-5.1) mmol/L Chloride (98-107) mmol/L Carbon Dioxide (21.0-32.0) mmol/L BUN (7.0-18.0) mg/dL Creatinine (0.6-1.0) mg/dL Est Cr Clr Drug Dosing Estimated GFR (MDRD) ml/min Glucose (74-106) mg/dL Calcium (8.5-10.1) mg/dL Total Bilirubin (0.2-1.0) mg/dL AST (15-37) IU/L ALT (14-63) IU/L Alkaline Phosphatase (46-116) U/L Total Protein (6.4-8.2) g/dL Albumin (3.4-5.0) g/dL Globulin (2.6-4.0) g/dL Albumin/Globulin Ratio (0.9-1.6) Urine Color PINK Urine Appearance SLT CLOUDY Urine pH 7.0 (5.0-8.0) Ur Specific [place] 1.015 (1.001-1.035) Urine Protein TRACE H (NEGATIVE) mg/dL Urine Glucose (UA) NEGATIVE (NEGATIVE) mg/dL Urine Ketones NEGATIVE (NEGATIVE) mg/dL Urine Occult Blood LARGE H (NEGATIVE) Urine Nitrite NEGATIVE (NEGATIVE) Urine Bilirubin NEGATIVE (NEGATIVE) Urine Urobilinogen 0.2 (<2.0) EU/dL Ur Leukocyte Esterase SMALL H (NEGATIVE) Urine RBC 60-70 (0-2/HPF) Urine WBC 1-2 (0-5/HPF) Ur Epithelial Cells OCCASIONAL (NONE-FEW) Urine Bacteria RARE (NEGATIVE) Urine HCG, Qual NEGATIVE (NEGATIVE) 06/13/20 Range/Units 01:31 WBC (4.0-11.0) K/uL RBC (4.30-5.90) M/uL Hgb (12.0-16.0) g/dL Hct (36.0-46.0) % MCV (80.0-98.0) fL MCH (27.0-32.0) pg MCHC (31.0-37.0) g/dL RDW Std Deviation (28.0-62.0) fl RDW Coeff of [place] (11.0-15.0) % Plt Count (150-400) K/uL MPV (7.40-12.00) fL Neut % (Auto) (48.0-80.0) % Lymph % (Auto) (16.0-40.0) % [place] % (Auto) (0.0-15.0) % Eos % (Auto) (0.0-7.0) % Baso % (Auto) (0.0-1.5) % Neut # (Auto) (1.4-5.7) K/uL Lymph # (Auto) (0.6-2.4) K/uL [place] # (Auto) (0.0-0.8) K/uL Eos # (Auto) (0.0-0.7) K/uL Baso # (Auto) (0.0-0.1) K/uL Nucleated RBC % /100WBC Nucleated RBCs # K/uL Sodium 141 (136-145) mmol/L Potassium 3.6 (3.5-5.1) mmol/L Chloride 104 (98-107) mmol/L Carbon Dioxide 26.6 (21.0-32.0) mmol/L BUN 11 (7.0-18.0) mg/dL Creatinine 0.7 (0.6-1.0) mg/dL Est Cr Clr Drug Dosing TNP Estimated GFR (MDRD) > 60.0 ml/min Glucose 113 H (74-106) mg/dL Calcium 8.7 (8.5-10.1) mg/dL Total Bilirubin 0.1 L (0.2-1.0) mg/dL AST 12 L (15-37) IU/L ALT 20 (14-63) IU/L Alkaline Phosphatase 65 (46-116) U/L Total Protein 7.0 (6.4-8.2) g/dL Albumin 3.9 (3.4-5.0) g/dL Globulin 3.1 (2.6-4.0) g/dL Albumin/Globulin Ratio 1.3 (0.9-1.6) Urine Color Urine Appearance Urine pH (5.0-8.0) Ur Specific [place] (1.001-1.035) Urine Protein (NEGATIVE) mg/dL Urine Glucose (UA) (NEGATIVE) mg/dL Urine Ketones (NEGATIVE) mg/dL Urine Occult Blood (NEGATIVE) Urine Nitrite (NEGATIVE) Urine Bilirubin (NEGATIVE) Urine Urobilinogen (<2.0) EU/dL Ur Leukocyte Esterase (NEGATIVE) Urine RBC (0-2/HPF) Urine WBC (0-5/HPF) Ur Epithelial Cells (NONE-FEW) Urine Bacteria (NEGATIVE) Urine HCG, Qual (NEGATIVE) Meds: Medications Generic Name Dose Route Start Last Admin Trade Name Freq PRN Reason Stop Dose Admin Sodium Chloride 10 ml 06/13/20 01:23 06/13/20 01:31 Saline Flush FLUSH 10 ml ASDIRECTED PRN Administration Keep Vein Open Sodium Chloride 2.5 ml 06/13/20 01:23 06/13/20 01:30 Saline Flush FLUSH 2.5 ml ASDIRECTED PRN Administration Keep Vein Open Discontinued Medications Generic Name Dose Route Start Last Admin Trade Name Freq PRN Reason Stop Dose Admin Sodium Chloride 1,000 mls @ 999 mls/hr 06/13/20 01:23 06/13/20 01:30 Normal Saline IV 06/13/20 02:23 999 mls/hr .Bolus ONE Administration Ketorolac Tromethamine 30 mg 06/13/20 01:23 06/13/20 01:30 Toradol IVPUSH 06/13/20 01:24 30 mg ONETIME ONE Administration Ondansetron HCl 4 mg 06/13/20 01:23 06/13/20 01:30 Zofran IVPUSH 06/13/20 01:24 4 mg ONETIME ONE Administration Departure - Departure Time of Disposition: 03:04 Disposition: Home, Self-Care 01 Condition: Good Clinical Impression: Abdominal pain - Discharge Information Instructions: Abdominal Pain, Adult, [id number] Referrals: Frandy Diaz MD [Primary Care Provider] - Additional Instructions: You have been seen and evaluated in the ER today secondary to abdominal pain. Your labs including your CT scan of your abdomen pelvis are all within normal limits and did not reveal a cause for your discomfort. You will be given a prescription for Zofran to assist you with your nausea and ibuprofen help you with your pain. Please make an appointment to see your EFFICIENCY EXPERT doctor in the next 1 to 2 days to be reevaluated regarding your abdominal discomfort to see if the pain and discomfort may be related to your menses or to your IUD. The following information is given to patients seen in the emergency department who are being discharged to home. This information is to outline your options for follow-up care. We provide all patients seen in our emergency department with a follow-up referral. The need for follow-up, as well as the timing and circumstances, are variable de pending upon the specifics of your emergency department visit. If you don't have a primary care physician on staff, we will provide you with a referral. We always advise you to contact your personal physician following an emergency department visit to inform them of the circumstance of the visit and for follow-up with them and/or the need for any referrals to a consulting specialist. The emergency department will also refer you to a specialist when appropriate. This referral assures that you have the opportunity for follow-up care with a specialist. All of these measure are taken in an effort to provide you with optimal care, which includes your follow-up. Under all circumstances we always encourage you to contact your private physician who remains a resource for coordinating your care. When calling for follow-up care, please make the office aware that this follow-up is from your recent emergency room visit. If for any reason you are refused follow-up, please contact the [facility] Emergency Department at and asked to speak to the emergency department charge nurse. [facility] - Primary [facility] [address] [place] [address] [facility] [address] [place] [id number] Sepsis Event Note (ED) - Evaluation Sepsis Screening Result: No Definite Risk - Focused Exam Vital Signs: Vital Signs Temp Pulse Resp BP Pulse Ox 06/13/20 01:15 97.6 F 97 18 106/86 76 L - My Orders Last 24 Hours: My Active Orders 06/13/20 01:23 Sodium Chloride 0.9% [Saline Flush] 10 ml FLUSH ASDIRECTED PRN Sodium Chloride 0.9% [Saline Flush] 2.5 ml FLUSH ASDIRECTED PRN 06/13/20 01:24 Saline Lock Insert [OM.PC] Stat - Assessment/Plan Last 24 Hours: My Active Orders 06/13/20 01:23 Sodium Chloride 0.9% [Saline Flush] 10 ml FLUSH ASDIRECTED PRN Sodium Chloride 0.9% [Saline Flush] 2.5 ml FLUSH ASDIRECTED PRN 06/13/20 01:24 Saline Lock Insert [OM.PC] Stat
[2020-06-13 03:15] VITALS: BP 120/72; PULSE 75
== END 2020-06-13 03:15 | disposition home or self-care (01) ==
LOC: MW.ED 01:03
DX: R10.30 Lower abdominal pain, unspecified (principal); R10.13 Epigastric pain; J45.909 Unspecified asthma, uncomplicated; K21.9 Gastro-esophageal reflux disease without esophagitis; Z79.899 Other long term (current) drug therapy
CPT/HCPCS: 36415; 74176; 80053; 81001; 81025; 85025; 96374; 96375; 99284; J1885; J2405; J7030; 99283

== ENCOUNTER 2020-06-13 19:25 | Emergency (ER) | payer SELFPAY ==
[2020-06-13 20:52] VITALS: PULSE 50
[2020-06-13] MEDS ORDERED: Ondansetron 4 MG/2 ML SDV IVPUSH ONE (20:57)
[2020-06-13] MEDS ORDERED: Sodium Chloride 0.9% 2.5 ML Syringe FLUSH PRN (20:57)
[2020-06-13] MEDS ORDERED: Sodium Chloride 0.9% 1,000 ML IV ONE ×2 (20:57→20:58)
[2020-06-13] MEDS ORDERED: Sodium Chloride 0.9% 10 ML Syringe FLUSH PRN (20:57)
[2020-06-13] MEDS ORDERED: Pantoprazole 40 MG in Sodium Chloride 0.9% 10 ML IV ONE (20:57)
[2020-06-13] MEDS ORDERED: Ketorolac 30 MG/ML SDV IVPUSH ONE (20:57)
[2020-06-13] MEDS ORDERED: Albuterol/Ipratropium 3.0-0.5 MG/3 ML Neb Soln ONE (21:45)
[2020-06-13 22:10] LABS: BLOOD UREA NITROGEN,BUN 9 mg/dL (7.0-18.0); CARBON DIOXIDE,CO2 25.2 mmol/L (21.0-32.0); CHLORIDE,CL 102 mmol/L (98-107); GLUCOSE RANDOM 119 mg/dL (74-106); LIPASE 45 U/L (73-393); POTASSIUM,K 3.8 mmol/L (3.5-5.1); SODIUM,NA 139 mmol/L (136-145)
--- NOTE | 2020-06-13 22:56 | EDM.PDOC ---
ED HPI GENERAL MEDICAL PROBLEM - General Chief Complaint: Gastrointestinal Problem Stated Complaint: VOMITTING Time Seen by Provider: 06/13/20 20:48 - History of Present Illness INITIAL COMMENTS - FREE TEXT/NARRATIVE: HISTORY AND PHYSICAL: History of present illness: This a 24-year-old female who presents ER today complaining of nausea vomiting and diarrhea that started yesterday and progressed today. Patient was seen in evaluated by me in the ER yesterday and had a normal CBC, CMP and CT scan of the abdomen pelvis. Patient ports that she does have a IUD in place and started having her period yesterday and thought that she might be having abdominal pain from her period. Patient denies any recent fevers at home although she has felt warm, patient denies any URI symptoms, cough, congestion, sore throat. Patient reports that she is been trying to tolerate liquids and solids at home but has not been able to despite taking Zofran ODT's at home as prescribed. Patient reports midepigastric abdominal discomfort. Patient denies any lower abdominal pain. Patient has any vaginal discharge. Patient denies any dysuria, frequency, urgency. Review of systems: As per history of present illness and below otherwise all systems reviewed and negative. Past medical history: As per history of present illness and as reviewed below otherwise noncontributory. Surgical history: As per history of present illness and as reviewed below otherwise noncontributory. Social history: No reported history of drug or alcohol abuse. Family history: As per history of present illness and as reviewed below otherwise noncontrib utory. Physical exam: This patient was seen and evaluated during the 2019 SARS-CoV-2 novel coronavirus pandemic period. Community viral transmission is ongoing at time of this encounter and the emergency department is operating under pandemic response procedures. Constitutional: Patient is oriented to person, place, and time. Appears well- developed and well-nourished. No distress. HEENT: Moist mucous membranes Head: Normocephalic and atraumatic Eyes: Right eye exhibits no discharge. Left eye exhibits no discharge. No scleral icterus Neck: Normal range of motion. No tracheal deviation present. Cardiovascular: Normal rate and regular rhythm. Pulmonary: Effort normal, no respiratory distress. Abd: Soft, nondistended, no rebound/guarding, no psoas or obturator signs, no tenderness at Mcberney's point, no Ledesma's sign. Pt does not present with an exam that would be consistent with an acute surgical abdomen at this time, mild tenderness palpation midepigastric region. Musculoskeletal: Normal range of motion Neurologic: Alert and oriented to person, place and time. Skin: [place], warm and dry. Psychiatric: Normal mood and affect. Behavior is normal. Judgment and thought content normal. Nursing note and vital signs have been reviewed Diagnostics: CBC, CMP within normal limits Therapeutics: NSS x2 L Zofran IV Assessment and plan: Set a 24-year-old female who presents ER today secondary to nausea vomiting and diarrhea. Patient reports that she been having loose watery stools x2 3 today with episodes of nausea and vomiting. While in the ED the patient reports that she feels significantly proved. Patient will be discharged home with prescription for Phenergan to take in addition to her Zofran. Patient is clinically hemodynamic stable. Patient's had multiple repeat exams here in the ED and is maintained a nonsurgical abdomen. 1055: Abd: Soft, nondistended, no rebound/guarding, no psoas or obturator signs, no tenderness at Mcberney's point, no Ledesma's sign. Pt does not present with an exam that would be consistent with an acute surgical abdomen at this time, minimal tenderness to palpation. Definitive disposition and diagnosis as appropriate pending reevaluation and review of above. abdomen Pain Score (Numeric/FACES): 8 - Related Data Allergies Allergy/AdvReac Type Severity Reaction Status Date / Time Sulfa (Sulfonamide Allergy Hives Verified 06/13/20 01:13 Antibiotics) Home Meds: Home Meds Pantoprazole [ProTONIX] 40 mg PO DAILY 09/17/19 [History] Ondansetron [Zofran] 4 mg PO Q8H PRN #15 tab 11/15/19 [Rx] Sertraline [Zoloft] 100 mg PO DAILY 11/15/19 [History] buPROPion HCL [Wellbutrin Xl] 150 mg PO DAILY 11/18/19 [History] Ciprofloxacin [Ciprofloxacin HCl] 500 mg PO BID 8 Days #16 tab 11/20/19 [Rx] Ibuprofen 600 mg PO Q6HR PRN #30 tablet 06/13/20 [Rx] Ondansetron [Zofran ODT] 4 mg PO Q6H PRN #12 tab.dis 06/13/20 [Rx] Past Medical History - Past Health History Medical/Surgical History: Denies Medical/Surgical History HEENT History: Reports: Other (See Below) Other HEENT History: wears glasses/contacts, chronic sinus infections Cardiovascular History: Reports: None Respiratory History: Reports: Asthma, Other (See Below) Other Respiratory History: pleursiy Gastrointestinal History: Reports: GERD, Other (See Below) Other Gastrointestinal History: epigastric pain Genitourinary History: Reports: None Other Genitourinary History: kidney infection UPPER TRIMMER History: Reports: Other (See Below) Other UPPER TRIMMER History: IUD placed Musculoskeletal History: Reports: None Neurological History: Reports: Migraines Psychiatric History: Reports: Anxiety, Depression, PTSD Endocrine/Metabolic History: Reports: None Hematologic History: Reports: None Immunologic History: Reports: None Oncologic (Cancer) History: Reports: None Dermatologic History: Reports: None - Infectious Disease History Infectious Disease History: Reports: Shingles - Past Surgical History Head Surgeries/Procedures: Reports: None HEENT Surgical History: Reports: Tonsillectomy, Other (See Below) Other HEENT Surgeries/Procedures: Ear canal surgery Cardiovascular Surgical History: Reports: None Respiratory Surgical History: Reports: None GI Surgical History: Reports: None Female Surgical History: Reports: None Endocrine Surgical History: Reports: None Neurological Surgical History: Reports: None Musculoskeletal Surgical History: Reports: None Oncologic Surgical History: Reports: None Dermatological Surgical History: Reports: None Social & Family History - Family History Family Medical History: No Pertinent Family History - Tobacco Use Tobacco Use Status *Q: Never Tobacco User Second Hand Smoke Exposure: No - Caffeine Use Caffeine Use: Reports: Coffee - Recreational Drug Use Recreational Drug Use: Yes Recreational Drug Type: Reports: Marijuana/Hashish Recreational Drug Use Frequency: Daily ED ROS GENERAL - Review of Systems Review Of Systems: See Below ED EXAM, GENERAL - Physical Exam Exam: See Below Course - Vital Signs Last Recorded V/S: Last Vital Signs Temp 96.8 F L 06/13/20 20:28 Pulse 50 L 06/13/20 20:28 Resp 17 06/13/20 20:28 BP 133/49 L 06/13/20 20:28 Pulse Ox 99 06/13/20 20:28 - Orders/Labs/Meds Orders: Active Orders 24 hr Category Date Time Status Sodium Chloride 0.9% [Saline Flush] Med 06/13/20 20:57 Active 10 ml FLUSH ASDIRECTED PRN Sodium Chloride 0.9% [Saline Flush] Med 06/13/20 20:57 Active 2.5 ml FLUSH ASDIRECTED PRN Saline Lock Insert [OM.PC] Stat Oth 06/13/20 20:57 Ordered Medication Orders Sodium Chloride (Saline Flush) 10 ml FLUSH ASDIRECTED PRN PRN Reason: Keep Vein Open Last Admin: 06/13/20 21:28 Dose: 10 ml Documented by: ELIZ Sodium Chloride (Saline Flush) 2.5 ml FLUSH ASDIRECTED PRN PRN Reason: Keep Vein Open Last Admin: 06/13/20 21:28 Dose: 2.5 ml Documented by: ELIZ Labs: Laboratory Tests 06/13/20 06/13/20 Range/Units 21:32 21:32 WBC 16.37 H (4.0-11.0) K/uL RBC 4.72 (4.30-5.90) M/uL Hgb 13.2 (12.0-16.0) g/dL Hct 39.6 (36.0-46.0) % MCV 83.9 (80.0-98.0) fL MCH 28.0 (27.0-32.0) pg MCHC 33.3 (31.0-37.0) g/dL RDW Std Deviation 42.8 (28.0-62.0) fl RDW Coeff of [place] 14 (11.0-15.0) % Plt Count 289 (150-400) K/uL MPV 11.00 (7.40-12.00) fL Neut % (Auto) 93.3 H (48.0-80.0) % Lymph % (Auto) 5.0 L (16.0-40.0) % Harvey % (Auto) 1.6 (0.0-15.0) % Eos % (Auto) 0.0 (0.0-7.0) % Baso % (Auto) 0.1 (0.0-1.5) % Neut # (Auto) 15.3 H (1.4-5.7) K/uL Lymph # (Auto) 0.8 (0.6-2.4) K/uL Harvey # (Auto) 0.3 (0.0-0.8) K/uL Eos # (Auto) 0.0 (0.0-0.7) K/uL Baso # (Auto) 0.0 (0.0-0.1) K/uL Nucleated RBC % 0.0 /100WBC Nucleated RBCs # 0 K/uL Sodium 139 (136-145) mmol/L Potassium 3.8 (3.5-5.1) mmol/L Chloride 102 (98-107) mmol/L Carbon Dioxide 25.2 (21.0-32.0) mmol/L BUN 9 (7.0-18.0) mg/dL Creatinine 0.7 (0.6-1.0) mg/dL Est Cr Clr Drug Dosing TNP Estimated GFR (MDRD) > 60.0 ml/min Glucose 119 H (74-106) mg/dL Calcium 9.4 (8.5-10.1) mg/dL Total Bilirubin 0.3 (0.2-1.0) mg/dL AST 17 (15-37) IU/L ALT 28 (14-63) IU/L Alkaline Phosphatase 64 (46-116) U/L Total Protein 8.1 (6.4-8.2) g/dL Albumin 4.6 (3.4-5.0) g/dL Globulin 3.5 (2.6-4.0) g/dL Albumin/Globulin Ratio 1.3 (0.9-1.6) Lipase 45 L (73-393) U/L Meds: Medications Generic Name Dose Route Start Last Admin Trade Name Freq PRN Reason Stop Dose Admin Sodium Chloride 10 ml 06/13/20 20:57 06/13/20 21:28 Saline Flush FLUSH 10 ml ASDIRECTED PRN Administration Keep Vein Open Sodium Chloride 2.5 ml 06/13/20 20:57 06/13/20 21:28 Saline Flush FLUSH 2.5 ml ASDIRECTED PRN Administration Keep Vein Open Discontinued Medications Generic Name Dose Route Start Last Admin Trade Name Freq PRN Reason Stop Dose Admin Albuterol/Ipratropium Confirm 06/13/20 21:45 Duoneb 3.0-0.5 Mg/3 Ml Administered 06/13/20 21:46 Dose 3 ml .ROUTE .STK-MED ONE Sodium Chloride 1,000 mls @ 999 mls/hr 06/13/20 20:58 06/13/20 21:28 Normal Saline IV 06/13/20 21:58 999 mls/hr .Bolus ONE Administration Sodium Chloride 1,000 mls @ 999 mls/hr 06/13/20 20:57 06/13/20 21:28 Normal Saline IV 06/13/20 21:57 999 mls/hr .Bolus ONE Administration Pantoprazole Sodium 40 mg/ 10 mls @ 300 mls/hr 06/13/20 20:57 06/13/20 21:27 Sodium Chloride IV 06/13/20 20:58 300 mls/hr NOW ONE Administration Ketorolac Tromethamine 30 mg 06/13/20 20:57 06/13/20 21:28 Toradol IVPUSH 06/13/20 20:58 30 mg ONETIME ONE Administration Ondansetron HCl 4 mg 06/13/20 20:57 06/13/20 21:27 Zofran IVPUSH 06/13/20 20:58 4 mg ONETIME ONE Administration Departure - Departure Time of Disposition: 22:55 Disposition: Home, Self-Care 01 Condition: Good Clinical Impression: Gastroenteritis - Discharge Information Instructions: Dehydration, Adult, [id number], Viral Gastroenteritis, Adult, [id number] Referrals: Frandy Diaz MD [Primary Care Provider] - Additional Instructions: You have been seen and evaluated in the ER today secondary to nausea, vomiting, diarrhea. Your presentation appears to be consistent with a stomach virus. You will be given a prescription for Phenergan to take in addition to the Zofran that we have prescribed to yesterday. Please maintain a bland diet with lots of liquids, toast, cookies, crackers, rice. Please make an appointment see your family doctor scheduled tomorrow. The following information is given to patients seen in the emergency department who are being discharged to home. This information is to outline your options for follow-up care. We provide all patients seen in our emergency department with a follow-up referral. The need for follow-up, as well as the timing and circumstances, are variable depending upon the specifics of your emergency department visit. If you don't have a primary care physician on staff, we will provide you with a referral. We always advise you to contact your personal physician following an emergency department visit to inform them of the circumstance of the visit and for follow-up with them and/or the need for any referrals to a consulting specialist. The emergency department will also refer you to a specialist when appropriate. This referral assures that you have the opportunity for follow-up care with a specialist. All of these measure are taken in an effort to provide you with optimal care, which includes your follow-up. Under all circumstances we always encourage you to contact your private lashawn bluecian who remains a resource for coordinating your care. When calling for follow-up care, please make the office aware that this follow-up is from your recent emergency room visit. If for any reason you are refused follow-up, please contact the [facility] Emergency Department at and asked to speak to the emergency department charge nurse. [facility] [address] [place] [address] [place] [address] Sepsis Event Note (ED) - Evaluation Sepsis Screening Result: No Definite Risk - Focused Exam Vital Signs: Vital Signs Temp Pulse Resp BP Pulse Ox 06/13/20 20:28 96.8 F L 50 L 17 133/49 L 99 - My Orders Last 24 Hours: My Active Orders 06/13/20 20:57 Sodium Chloride 0.9% [Saline Flush] 10 ml FLUSH ASDIRECTED PRN Sodium Chloride 0.9% [Saline Flush] 2.5 ml FLUSH ASDIRECTED PRN Saline Lock Insert [OM.PC] Stat - Assessment/Plan Last 24 Hours: My Active Orders 06/13/20 20:57 Sodium Chloride 0.9% [Saline Flush] 10 ml FLUSH ASDIRECTED PRN Sodium Chloride 0.9% [Saline Flush] 2.5 ml FLUSH ASDIRECTED PRN Saline Lock Insert [OM.PC] Stat
[2020-06-13 23:50] VITALS: BP 128/41
== END 2020-06-13 23:46 | disposition home or self-care (01) ==
LOC: MW.ED 19:25
DX: K52.9 Noninfective gastroenteritis and colitis, unspecified (principal); K21.9 Gastro-esophageal reflux disease without esophagitis; J45.909 Unspecified asthma, uncomplicated; Z88.2 Allergy status to sulfonamides; Z79.899 Other long term (current) drug therapy
CPT/HCPCS: 36415; 80053; 83690; 85025; 96374; 96375; 99284; C9113; J1885; J2405; J7030; J7620-GY

== ENCOUNTER 2021-01-05 15:56 | Observation (INO) | payer SELFPAY ==
[2021-01-05] MEDS ORDERED: Ondansetron 4 MG Tab.DIS PO ONE (17:58)
[2021-01-05] MEDS ORDERED: Haloperidol Lactate 5 MG/ML SDV IM ONE (18:17)
[2021-01-05] MEDS ORDERED: diphenhydrAMINE 50 MG/ML SDV IVPUSH ONE (18:17)
[2021-01-05] MEDS ORDERED: Dextrose 5%-Lactated Ringers 1,000 ML IV SCH (18:30)
[2021-01-05 18:46] LABS: BLOOD UREA NITROGEN,BUN 11 mg/dL (7.0-18.0); CARBON DIOXIDE,CO2 31.9 mmol/L (21.0-32.0); CHLORIDE,CL 96 mmol/L (98-107); GLUCOSE RANDOM 115 mg/dL (74-106); LIPASE 110 U/L (73-393); POTASSIUM,K 3.6 mmol/L (3.5-5.1); SODIUM,NA 138 mmol/L (136-145)
--- NOTE | 2021-01-05 19:26 | EDM.PDOC ---
<Donavan Ross - Last Filed: 01/05/21 19:26> ED HPI GENERAL MEDICAL PROBLEM - General Chief Complaint: Genitourinary Problem Stated Complaint: POSSIBLE KIDNEY INFECTION Time Seen by Provider: 01/05/21 18:04 - History of Present Illness INITIAL COMMENTS - FREE TEXT/NARRATIVE: CHIEF COMPLAINT(S): "I am pretty sure I have a kidney infection." HISTORY OF PRESENT ILLNESS: This is a 25-year-old man with a past medical history of alcohol use disorder, anxiety, depression, marijuana use disorder who comes to the emergency department with a chief complaint of "I am pretty sure I have a kidney infection." The patient states that she is pretty sure that she has a kidney infection. She states that this is similar to her prior admission before. She denies any dysuria, hematuria and denies any increased vaginal bleeding or vaginal discharge. She states that she has an IUD and she has had vaginal bleeding and discharge at that time. She states that she has had decreased urination. She states that she is having vomiting which is nonstop of both throughout the entire week. She denies any hematemesis or bilious emesis. She states that she has diffuse abdominal pain which she describes as sharp and achy rated 5 out of 10 without any radiation. She denies any exacerbating or relieving factors. She states that she cannot tolerate p.o. She denies any diarrhea. She denies any chest pain or shortness of breath. She states that she has not tried any medications because she is not able to tolerate any food. Positive for abdominal pain, nausea, vomiting. Denies diarrhea, hematochezia, hematemesis, bilious emesis, melena REVIEW OF SYSTEMS: Constitutional: Denies fever, chills. Eyes: Denies eye pain Ears, Nose, Mouth, & Throat: Denies earache Cardiovascular: Denies chest pain Respiratory: Denies shortness of breath Gastrointestinal: Denies Nausea, vomiting, diarrhea, hematochezia. Genitourinary: Positive for chronic vaginal bleeding and discharge denies hematuria, dysuria Skin:Denies a rash MSK: Denies joint pain Neurological: Denies blurred vision Psychiatric: Denies depression PAST MEDICAL HISTORY: As per history of present illness and as reviewed below otherwise noncontributory. SURGICAL HISTORY: As per history of present illness and as reviewed below otherwise noncontributory. SOCIAL HISTORY: As per history of present illness and as reviewed below otherwise noncontributory. FAMILY HISTORY: As per history of present illness and as reviewed below otherwise noncontributory. EXAMINATION OF ORGAN SYSTEMS/BODY AREAS: Constitutional: Blood pressure is 158/112, heart rate 63, respiratory rate 15 with an oxygen saturation of 100% on room air. Temperature 36.8 General: Young woman who is vomiting into an emesis bag Psychiatric: Appropriate mood and affect. Eyes: No scleral icterus or conjunctival erythema ENMT: Moist mucous membranes. No pharyngeal erythema Cardiovascular: Regular, rate, and rhythm. No gallops, murmurs, or rubs. Bilateral upper extremity pulses symmetric and intact. No peripheral edema. No JVD. Respiratory: Lungs clear to auscultation bilaterally. No wheezes, rales, or rhonchi. Gastrointestinal: Soft, nondistended, tenderness palpation in the epigastric and left upper quadrant region. No rebound or guarding. Normoactive bowel sounds Genitourinary: No suprapubic tenderness no CVA tenderness. Musculoskeletal: Normal range of motion. Skin: No lesions or abrasions. Neurological: Alert, GCS 15 MEDICAL DECISION MAKING AND COURSE IN THE ED WITH INTERPRETATION/REVIEW OF DIAGNOSTIC STUDIES: This is a 25-year-old woman with a past medical history of alcohol use disorder, marijuana use disorder, anxiety and depression who comes to the emergency department with 1 week of vomiting and epigastric abdominal pain who is concerned about a kidney infection. Based on her symptoms this does not appear to be a kidney infection however given a history of obtain a urinalysis. I do believe that given her alcohol use we have to consider pancreatitis. Will obtain a lipase and CMP. Will obtain CBC and lactic acid. Differential also includes marijuana hyperemesis. We will provide the patient with Haldol and Benadryl for pain and nausea relief. We will provide the patient with 1 L of D5 lactated Ringer's and 4 mg of IV Zofran. Will obtain a CT abdomen pelvis given the abdominal pain on examination. Laboratory: CBC reveals a leukocytosis 17.75 with neutrophilic predominance. No left shift. CMP reveals hypochloremia at 96, hyperglycemia at 115, hypercalcemia at 10.2 otherwise unremarkable. Lactic acid is 3.3. Lipase is 110. hCG is negative. At this time given the patient's normal vital signs the patient does not meet septic criteria. We will continue with current management and evaluate after CT abdomen pelvis. Given the lactic acidosis we will provide the patient with an additional 1 L lactated Ringer's bolus to equal 30 cc/kg which is approximately 1700 cc. At the time of signout patient was pending CT abdomen pelvis with contrast and urinalysis. DISPOSITION: Patient was signed out pending further work-up and final disposition CONDITION: Fair PROCEDURES: None FINAL IMPRESSION(S)/DIAGNOSES: 1. Acute abdominal pain 2. Acute vomiting 3. Acute lactic acidosis Donavan Ross M.D. Back Pain Score (Numeric/FACES): 9 - Related Data Allergies Allergy/AdvReac Type Severity Reaction Status Date / Time Sulfa (Sulfonamide Allergy Hives Verified 06/13/20 01:13 Antibiotics) Home Meds: Home Meds Pantoprazole [ProTONIX] 40 mg PO DAILY 09/17/19 [History] Ondansetron [Zofran] 4 mg PO Q8H PRN #15 tab 11/15/19 [Rx] Sertraline [Zoloft] 100 mg PO DAILY 11/15/19 [History] buPROPion HCL [Wellbutrin Xl] 150 mg PO DAILY 11/18/19 [History] Ciprofloxacin [Ciprofloxacin HCl] 500 mg PO BID 8 Days #16 tab 11/20/19 [Rx] Ibuprofen 600 mg PO Q6HR PRN #30 tablet 06/13/20 [Rx] Ondansetron [Zofran ODT] 4 mg PO Q6H PRN #12 tab.dis 06/13/20 [Rx] Promethazine [Phenergan] 25 mg PO Q6H PRN #12 tab 06/13/20 [Rx] Capsaicin 60 gm TP BID PRN #1 cream..g. 01/05/21 [Rx] Omeprazole Magnesium [Prilosec Otc] 20 mg PO BID #30 tablet. 01/05/21 [Rx] Ondansetron [Zofran ODT] 4 mg PO Q6H PRN #12 tab.dis 01/05/21 [Rx] Past Medical History - Past Health History Medical/Surgical History: Denies Medical/Surgical History HEENT History: Reports: Other (See Below) Other HEENT History: wears glasses/contacts, chronic sinus infections Cardiovascular History: Reports: None Respiratory History: Reports: Asthma, Other (See Below) Other Respiratory History: pleursiy Gastrointestinal History: Reports: GERD, Other (See Below) Other Gastrointestinal History: epigastric pain Genitourinary History: Reports: Renal Calculus Other Genitourinary History: kidney infection INSTRUCTOR PAINTING History: Reports: Other (See Below) Other INSTRUCTOR PAINTING History: IUD placed Musculoskeletal History: Reports: None Neurological History: Reports: Migraines Psychiatric History: Reports: Anxiety, Depression, PTSD Endocrine/Metabolic History: Reports: None Hematologic History: Reports: None Immunologic History: Reports: None Oncologic (Cancer) History: Reports: None Dermatologic History: Reports: None - Infectious Disease History Infectious Disease History: Reports: Shingles - Past Surgical History Head Surgeries/Procedures: Reports: None HEENT Surgical History: Reports: Tonsillectomy, Other (See Below) Other HEENT Surgeries/Procedures: Ear canal surgery Cardiovascular Surgical History: Reports: None Respiratory Surgical History: Reports: None GI Surgical History: Reports: None Female Surgical History: Reports: None Endocrine Surgical History: Reports: None Neurological Surgical History: Reports: None Musculoskeletal Surgical History: Reports: None Oncologic Surgical History: Reports: None Dermatological Surgical History: Reports: None Social & Family History - Family History Family Medical History: No Pertinent Family History - Tobacco Use Tobacco Use Status *Q: Never Tobacco User Second Hand Smoke Exposure: Yes - Caffeine Use Caffeine Use: Reports: Energy Drinks, Soda - Recreational Drug Use Recreational Drug Use: Yes Recreational Drug Type: Reports: Marijuana/Hashish Recreational Drug Use Frequency: Socially ED ROS GENERAL - Review of Systems Review Of Systems: See Below ED EXAM, GENERAL - Physical Exam Exam: See Below Departure - Departure Disposition: Refer to Observation Clinical Impression: Abdominal pain, Pulmonary nodule, Cannabinoid hyperemesis syndrome, Intractable vomiting - Discharge Information Prescriptions: Capsaicin 60 gm TP BID PRN #1 cream..g. PRN Reason: Abdominal Pain Omeprazole Magnesium [Prilosec Otc] 20 mg PO BID #30 tablet. Ondansetron [Zofran ODT] 4 mg PO Q6H PRN #12 tab.dis PRN Reason: Vomiting Instructions: Cannabis Use Disorder, Abdominal Pain, Adult, [id number], Nausea and Vomiting, Adult, Pulmonary Nodule Referrals: Joe,Frandy, MD [Primary Care Provider] - 3 Days (Please notify your PCP of the incidental pulmonary nodules found on your CT scan needing serial mon itoring.) Forms: ED Department Discharge Additional Instructions: The need for follow-up, as well as the timing and circumstances, are variable depending upon the specifics of your emergency department visit. If you don't have a primary care physician on staff, we will provide you with a referral. We always advise you to contact your personal physician following an emergency department visit to inform them of the circumstance of the visit and for follow-up with them and/or the need for any referrals to a consulting specialist. The emergency department will also refer you to a specialist when appropriate. This referral assures that you have the opportunity for follow-up care with a specialist. All of these measure are taken in an effort to provide you with optimal care, which includes your follow-up. Under all circumstances we always encourage you to contact your private physician who remains a resource for coordinating your care. When calling for follow-up care, please make the office aware that this follow-up is from your recent emergency room visit. If for any reason you are refused follow-up, please contact the [facility] Emergency Department at and asked to speak to the emergency department charge nurse. If you do not have a primary care doctor, please follow up with the clinics below within 3-5 days. [facility] [address] [place] [id number] [place] [address] <Lexa Adhikari - Last Filed: 01/05/21 22:55> ED HPI GENERAL MEDICAL PROBLEM - General Source of Information: Reports: Patient History Limitations: Reports: No Limitations Course - Vital Signs Last Recorded V/S: Last Vital Signs Temp 98.3 F 01/05/21 17:18 Pulse 64 01/05/21 22:26 Resp 16 01/05/21 22:26 BP 145/88 H 01/05/21 22:26 Pulse Ox 99 01/05/21 22:26 - Orders/Labs/Meds Orders: Active Orders 24 hr Category Date Time Status Patient Status [ADT] Routine ADT 01/05/21 22:53 Ordered Abdomen Ltd [US] Stat Exams 01/05/21 20:27 Taken Dextrose 5%-Lactated Ringers 1,000 ml Med 01/05/21 18:30 Active IV ASDIRECTED Lactated Ringers [Ringers, Lactated] 1,000 ml Med 01/05/21 19:30 Active IV ASDIRECTED Medication Orders Dextrose/Lactated Ringer's (Dextrose 5%-Lactated Ringers) 1,000 mls @ 999 mls/hr IV ASDIRECTED CB Last Admin: 01/05/21 18:36 Dose: 999 mls/hr Documented by: HOLLIE Lactated Ringer's (Ringers, Lactated) 1,000 mls @ 999 mls/hr IV ASDIRECTED CB Last Admin: 01/05/21 22:11 Dose: 999 mls/hr Documented by: TEA Labs: Laboratory Tests 01/05/21 01/05/21 01/05/21 Range/Units 17:40 17:40 17:40 WBC 17.75 H (4.0-11.0) K/uL RBC 5.38 (4.30-5.90) M/uL Hgb 14.7 (12.0-16.0) g/dL Hct 44.4 (36.0-46.0) % MCV 82.5 (80.0-98.0) fL MCH 27.3 (27.0-32.0) pg MCHC 33.1 (31.0-37.0) g/dL RDW Std Deviation 39.2 (28.0-62.0) fl RDW Coeff of Kay[place] 13 (11.0-15.0) % Plt Count 356 (150-400) K/uL MPV 11.00 (7.40-12.00) fL Neut % (Auto) 83.3 H (48.0-80.0) % Lymph % (Auto) 8.8 L (16.0-40.0) % Summit % (Auto) 7.1 (0.0-15.0) % Eos % (Auto) 0.6 (0.0-7.0) % Baso % (Auto) 0.2 (0.0-1.5) % Neut # (Auto) 14.8 H (1.4-5.7) K/uL Lymph # (Auto) 1.6 (0.6-2.4) K/uL Summit # (Auto) 1.3 H (0.0-0.8) K/uL Eos # (Auto) 0.1 (0.0-0.7) K/uL Baso # (Auto) 0.0 (0.0-0.1) K/uL Nucleated RBC % 0.0 /100WBC Nucleated RBCs # 0 K/uL Sodium 138 (136-145) mmol/L Potassium 3.6 (3.5-5.1) mmol/L Chloride 96 L (98-107) mmol/L Carbon Dioxide 31.9 (21.0-32.0) mmol/L BUN 11 (7.0-18.0) mg/dL Creatinine 0.8 (0.6-1.0) mg/dL Est Cr Clr Drug Dosing 81.12 mL/min Estimated GFR (MDRD) > 60.0 ml/min Glucose 115 H (74-106) mg/dL Lactic Acid (0.4-2.0) mmol/L Calcium 10.2 H (8.5-10.1) mg/dL Magnesium 2.1 (1.8-2.4) mg/dL Total Bilirubin 0.3 (0.2-1.0) mg/dL AST 25 (15-37) IU/L ALT 35 (14-63) IU/L Alkaline Phosphatase 76 (46-116) U/L Total Protein 8.4 H (6.4-8.2) g/dL Albumin 5.0 (3.4-5.0) g/dL Globulin 3.4 (2.6-4.0) g/dL Albumin/Globulin Ratio 1.5 (0.9-1.6) Lipase 110 (73-393) U/L HCG, Qual NEGATIVE (NEG) Urine Color Urine Appearance Urine pH (5.0-8.0) Ur Specific [place] (1.001-1.035) Urine Protein (NEGATIVE) mg/dL Urine Glucose (UA) (NEGATIVE) mg/dL Urine Ketones (NEGATIVE) mg/dL Urine Occult Blood (NEGATIVE) Urine Nitrite (NEGATIVE) Urine Bilirubin (NEGATIVE) Urine Urobilinogen (<2.0) EU/dL Ur Leukocyte Esterase (NEGATIVE) Urine RBC (0-2/HPF) Urine WBC (0-5/HPF) Ur Epithelial Cells (NONE-FEW) Amorphous Sediment (NEGATIVE) Urine Bacteria (NEGATIVE) Urine HCG, Qual (NEGATIVE) Urine Opiates Screen (NEGATIVE) Ur Oxycodone Screen (NEGATIVE) Urine Methadone Screen (NEGATIVE) Ur Barbiturates Screen (NEGATIVE) Ur Phencyclidine Scrn (NEGATIVE) Ur Amphetamine Screen (NEGATIVE) U Methamphetamines Scrn (NEGATIVE) U Benzodiazepines Scrn (NEGATIVE) U Cocaine Metab Screen (NEGATIVE) U Marijuana (THC) Screen (NEGATIVE) 01/05/21 01/05/21 01/05/21 Range/Units 17:40 21:00 21:00 WBC (4.0-11.0) K/uL RBC (4.30-5.90) M/uL Hgb (12.0-16.0) g/dL Hct (36.0-46.0) % MCV (80.0-98.0) fL MCH (27.0-32.0) pg MCHC (31.0-37.0) g/dL RDW Std Deviation (28.0-62.0) fl RDW Coeff of Kay[place] (11.0-15.0) % Plt Count (150-400) K/uL MPV (7.40-12.00) fL Neut % (Auto) (48.0-80.0) % Lymph % (Auto) (16.0-40.0) % Summit % (Auto) (0.0-15.0) % Eos % (Auto) (0.0-7.0) % Baso % (Auto) (0.0-1.5) % Neut # (Auto) (1.4-5.7) K/uL Lymph # (Auto) (0.6-2.4) K/uL Summit # (Auto) (0.0-0.8) K/uL Eos # (Auto) (0.0-0.7) K/uL Baso # (Auto) (0.0-0.1) K/uL Nucleated RBC % /100WBC Nucleated RBCs # K/uL Sodium (136-145) mmol/L Potassium (3.5-5.1) mmol/L Chloride (98-107) mmol/L Carbon Dioxide (21.0-32.0) mmol/L BUN (7.0-18.0) mg/dL Creatinine (0.6-1.0) mg/dL Est Cr Clr Drug Dosing mL/min Estimated GFR (MDRD) ml/min Glucose (74-106) mg/dL Lactic Acid 3.3 H* (0.4-2.0) mmol/L Calcium (8.5-10.1) mg/dL Magnesium (1.8-2.4) mg/dL Total Bilirubin (0.2-1.0) mg/dL AST (15-37) IU/L ALT (14-63) IU/L Alkaline Phosphatase (46-116) U/L Total Protein (6.4-8.2) g/dL Albumin (3.4-5.0) g/dL Globulin (2.6-4.0) g/dL Albumin/Globulin Ratio (0.9-1.6) Lipase (73-393) U/L HCG, Qual (NEG) Urine Color YELLOW Urine Appearance SLT CLOUDY Urine pH 8.5 H (5.0-8.0) Ur Specific [place] 1.015 (1.001-1.035) Urine Protein NEGATIVE (NEGATIVE) mg/dL Urine Glucose (UA) 500 H (NEGATIVE) mg/dL Urine Ketones NEGATIVE (NEGATIVE) mg/dL Urine Occult Blood MODERATE H (NEGATIVE) Urine Nitrite NEGATIVE (NEGATIVE) Urine Bilirubin NEGATIVE (NEGATIVE) Urine Urobilinogen 0.2 (<2.0) EU/dL Ur Leukocyte Esterase NEGATIVE (NEGATIVE) Urine RBC 1-3 (0-2/HPF) Urine WBC 1-4 (0-5/HPF) Ur Epithelial Cells FEW (NONE-FEW) Amorphous Sediment LIGHT (NEGATIVE) Urine Bacteria 1+ H (NEGATIVE) Urine HCG, Qual NEGATIVE (NEGATIVE) Urine Opiates Screen (NEGATIVE) Ur Oxycodone Screen (NEGATIVE) Urine Methadone Screen (NEGATIVE) Ur Barbiturates Screen (NEGATIVE) Ur Phencyclidine Scrn (NEGATIVE) Ur Amphetamine Screen (NEGATIVE) U Methamphetamines Scrn (NEGATIVE) U Benzodiazepines Scrn (NEGATIVE) U Cocaine Metab Screen (NEGATIVE) U Marijuana (THC) Screen (NEGATIVE) 01/05/21 01/05/21 Range/Units 21:00 21:25 WBC (4.0-11.0) K/uL RBC (4.30-5.90) M/uL Hgb (12.0-16.0) g/dL Hct (36.0-46.0) % MCV (80.0-98.0) fL MCH (27.0-32.0) pg MCHC (31.0-37.0) g/dL RDW Std Deviation (28.0-62.0) fl RDW Coeff of [place] (11.0-15.0) % Plt Count (150-400) K/uL MPV (7.40-12.00) fL Neut % (Auto) (48.0-80.0) % Lymph % (Auto) (16.0-40.0) % Summit % (Auto) (0.0-15.0) % Eos % (Auto) (0.0-7.0) % Baso % (Auto) (0.0-1.5) % Neut # (Auto) (1.4-5.7) K/uL Lymph # (Auto) (0.6-2.4) K/uL Summit # (Auto) (0.0-0.8) K/uL Eos # (Auto) (0.0-0.7) K/uL Baso # (Auto) (0.0-0.1) K/uL Nucleated RBC % /100WBC Nucleated RBCs # K/uL Sodium (136-145) mmol/L Potassium (3.5-5.1) mmol/L Chloride (98-107) mmol/L Carbon Dioxide (21.0-32.0) mmol/L BUN (7.0-18.0) mg/dL Creatinine (0.6-1.0) mg/dL Est Cr Clr Drug Dosing mL/min Estimated GFR (MDRD) ml/min Glucose (74-106) mg/dL Lactic Acid 2.9 H* (0.4-2.0) mmol/L Calcium (8.5-10.1) mg/dL Magnesium (1.8-2.4) mg/dL Total Bilirubin (0.2-1.0) mg/dL AST (15-37) IU/L ALT (14-63) IU/L Alkaline Phosphatase (46-116) U/L Total Protein (6.4-8.2) g/dL Albumin (3.4-5.0) g/dL Globulin (2.6-4.0) g/dL Albumin/Globulin Ratio (0.9-1.6) Lipase (73-393) U/L HCG, Qual (NEG) Urine Color Urine Appearance Urine pH (5.0-8.0) Ur Specific [place] (1.001-1.035) Urine Protein (NEGATIVE) mg/dL Urine Glucose (UA) (NEGATIVE) mg/dL Urine Ketones (NEGATIVE) mg/dL Urine Occult Blood (NEGATIVE) Urine Nitrite (NEGATIVE) Urine Bilirubin (NEGATIVE) Urine Urobilinogen (<2.0) EU/dL Ur Leukocyte Esterase (NEGATIVE) Urine RBC (0-2/HPF) Urine WBC (0-5/HPF) Ur Epithelial Cells (NONE-FEW) Amorphous Sediment (NEGATIVE) Urine Bacteria (NEGATIVE) Urine HCG, Qual (NEGATIVE) Urine Opiates Screen NEGATIVE (NEGATIVE) Ur Oxycodone Screen NEGATIVE (NEGATIVE) Urine Methadone Screen NEGATIVE (NEGATIVE) Ur Barbiturates Screen NEGATIVE (NEGATIVE) Ur Phencyclidine Scrn NEGATIVE (NEGATIVE) Ur Amphetamine Screen NEGATIVE (NEGATIVE) U Methamphetamines Scrn NEGATIVE (NEGATIVE) U Benzodiazepines Scrn NEGATIVE (NEGATIVE) U Cocaine Metab Screen NEGATIVE (NEGATIVE) U Marijuana (THC) Screen POSITIVE (NEGATIVE) Meds: Medications Generic Name Dose Route Start Last Admin Trade Name Freq PRN Reason Stop Dose Admin Dextrose/Lactated Ringer's 1,000 mls @ 999 mls/hr 01/05/21 18:30 01/05/21 18:36 Dextrose 5%-Lactated Ringers IV 999 mls/hr ASDIRECTED CB Administration Lactated Ringer's 1,000 mls @ 999 mls/hr 01/05/21 19:30 01/05/21 22:11 Ringers, Lactated IV 999 mls/hr ASDIRECTED CB Administration Discontinued Medications Generic Name Dose Route Start Last Admin Trade Name Freq PRN Reason Stop Dose Admin Al Hydroxide/Mg Hydroxide 15 0 ml 01/05/21 21:18 01/05/21 22:13 ml/ Metoclopramide HCl 5 mg/ PO 01/05/21 21:19 1 each Lidocaine HCl 5 ml ONETIME ONE Administration Diphenhydramine HCl 50 mg 01/05/21 18:17 01/05/21 18:36 Diphenhydramine 50 Mg/Ml Sdv IVPUSH 01/05/21 18:18 50 mg ONETIME ONE Administration Haloperidol Lactate 5 mg 01/05/21 18:17 01/05/21 18:36 Haloperidol Lactate 5 Mg/Ml Sdv IM 01/05/21 18:18 5 mg ONETIME ONE Administration Hydromorphone HCl 1 mg 01/05/21 21:22 01/05/21 22:24 Hydromorphone 1 Mg/Ml Syringe IVPUSH 01/05/21 21:23 1 mg ONETIME ONE Administration Lactated Ringer's 1,000 mls @ 999 mls/hr 01/05/21 20:26 01/05/21 21:05 Ringers, Lactated IV 01/05/21 21:26 999 mls/hr .BOLUS ONE Administration Pantoprazole Sodium 40 mg/ 20 mls @ 420 mls/hr 01/05/21 21:17 01/05/21 22:12 Sodium Chloride IVPUSH 01/05/21 21:19 420 mls/hr ONETIME ONE Administration Iopamidol 100 ml 01/05/21 20:14 01/05/21 20:16 Iopamidol 755 Mg/Ml 100 Ml Bottle IVPUSH 01/05/21 20:15 100 ml ONETIME ONE Administration Ondansetron HCl 4 mg 01/05/21 17:58 01/05/21 18:36 Ondansetron 4 Mg Tab.Dis PO 01/05/21 17:59 4 mg ONETIME ONE Administration Ondansetron HCl 4 mg 01/05/21 22:21 01/05/21 22:22 Ondansetron 4 Mg/2 Ml Sdv IVPUSH 01/05/21 22:22 4 mg ONETIME ONE Administration Ondansetron HCl Confirm 01/05/21 22:20 01/05/21 22:23 Ondansetron 4 Mg/2 Ml Sdv Administered 01/05/21 22:21 Not Given Dose 4 mg .ROUTE .ST-MED ONE - Re-Assessments/Exams Free Text/Narrative Re-Assessment/Exam: 01/05/21 1900 This patient was signed out to me from Dr. Ross at this time. I promptly performed a detailed physical examination, my examination was performed after ED treatments were initiated by the signout provider. Patient has been under the care of the previous provider up until this point. Patient upon repeat examination demonstrates nml vitals, she is resting calmly, abdominal exam elevator tender in the epigastrium. She does admit to using marijuana regularly on a daily basis, blood work demonstrated lactic acidosis of 3.3 with leukocytosis, likely secondary to vomiting secondary to cannabinoid hyperemesis syndrome. She received IV Haldol prior to signout and is resting calmly. CT A/P pending. 01/05/21 22:40 Patient is again actively vomiting, she does not feel well enough for discharge despite her lactate trending down to 2.9 from 3.3. She has received IV Protonix, Haldol, GI cocktail with Reglan, Zofran. Patient will be admitted for intractable vomiting. Case discussed with Dr. Robles, who agrees to admit patient. The hospitalist's documentation supersedes all other documentation on this patient with regard to any conflicts or discrepancies from this point forward. Any emergency conditions have been treated to the ability of the ED prior to admission. Departure - Departure Time of Disposition: 22:54 Condition: Good - Discharge Information *PRESCRIPTION DRUG MONITORING PROGRAM REVIEWED*: Not Applicable *COPY OF PRESCRIPTION DRUG MONITORING REPORT IN PATIENT SOPHIE: Not Applicable Sepsis Event Note (ED) - Focused Exam Vital Signs: Vital Signs Temp Pulse Resp BP Pulse Ox 01/05/21 22:26 64 16 145/88 H 99 01/05/21 17:18 98.3 F 63 15 158/112 H 100 - My Orders Last 24 Hours: My Active Orders 01/05/21 20:27 Abdomen Ltd [US] Stat 01/05/21 22:53 Patient Status [ADT] Routine - Assessment/Plan Last 24 Hours: My Active Orders 01/05/21 20:27 Abdomen Ltd [US] Stat 01/05/21 22:53 Patient Status [ADT] Routine
[2021-01-05] MEDS ORDERED: Lactated Ringers 1,000 ML IV SCH (19:30)
[2021-01-05] MEDS ORDERED: Iopamidol 755 Mg/ML 100 ML Bottle IVPUSH ONE (20:14)
[2021-01-05] MEDS ORDERED: Lactated Ringers 1,000 ML IV ONE (20:26)
--- NOTE | 2021-01-05 20:30 | CT ---
INDICATION: Epigastric pain/abdominal pain with elevated WBC. TECHNIQUE: CT of the abdomen and pelvis with 100 cc Isovue 370 IV contrast. Coronal and sagittal reconstructions. COMPARISON: CT of the abdomen and pelvis 06/13/2020. FINDINGS: The liver, gallbladder, spleen, pancreas, and adrenal glands are negative. No biliary dilation. Hepatic and portal veins are patent. Symmetric enhancement of the kidneys. Tiny low-attenuation lesion in the upper pole of the right kidney medially most likely represents a cyst. No hydronephrosis or ureteral dilation. No obstructing urinary calculi identified. The bladder is normal in appearance. IUD in the uterus. No abnormality in the adnexa. No bowel dilation. No evidence of bowel inflammation. Negative appendix. No intraperitoneal free air or fluid. No lymphadenopathy. Few tiny bone islands in the pelvis. The bones are otherwise unremarkable. 4 mm noncalcified pulmonary nodule in the lateral left lower lobe (series 2, image 12). 2 mm noncalcified pulmonary nodule in the posterior left lower lobe (image 15). These are most likely benign given patient`s age. The lung bases are otherwise clear. IMPRESSION: No acute findings in the abdomen or pelvis. Please note that all CT scans at this facility use dose modulation, iterative reconstruction, and/or weight-based dosing when appropriate to reduce radiation dose to as low as reasonably achievable. Dictated by Deirdre Crooks MD @ 01/05/2021 8:29:47 PM (Electronically Signed)
[2021-01-05] MEDS ORDERED: Pantoprazole 40 MG in Sodium Chloride 0.9% 20 ML IVPUSH ONE (21:17)
[2021-01-05] MEDS ORDERED: Alum Hydrox/Mag Hydrox/Simeth 15 ML, Metoclopramide 5 MG, Lidocaine 2% 5 ML PO ONE ×3 (21:18)
[2021-01-05] MEDS ORDERED: HYDROmorphone 1 MG/ML Syringe IVPUSH ONE (21:22)
[2021-01-05] MEDS ORDERED: Ondansetron 4 MG/2 ML SDV ONE (22:20)
[2021-01-05] MEDS ORDERED: Ondansetron 4 MG/2 ML SDV IVPUSH ONE (22:21)
--- NOTE | 2021-01-05 23:14 | US ---
INDICATION: Abdominal pain TECHNIQUE: Ultrasound abdomen limited. Sonographic images of the right upper quadrant were obtained using yu-scale and color Doppler images. COMPARISON: CT abdomen pelvis today FINDINGS: Liver: Normal in size and echotexture. No masses. No intrahepatic biliary dilatation. Gallbladder: No stones or sludge. Normal wall thickness. No pericholecystic fluid. Sonographic Ledesma`s sign is positive. Common bile duct: 3.3 mm. Pancreas: Normal. Right kidney: 9.4 cm. Normal echotexture and cortex. No masses, stones, or hydronephrosis. IMPRESSION: Positive sonographic Ledesma`s sign without evidence for cholelithiasis. Dictated by Genny Mccall MD @ 01/05/2021 11:13:49 PM (Electronically Signed)
[2021-01-06] MEDS ORDERED: Promethazine 25 MG/ML SDV IM PRN (02:24)
[2021-01-06] MEDS ORDERED: Ondansetron 4 MG/2 ML SDV IVPUSH PRN (02:24)
[2021-01-06] MEDS ORDERED: cefTRIAXone 1 GM Vial IVPUSH SCH (02:30)
--- NOTE | 2021-01-06 02:31 | PCM.HP.2 ---
H&P History of Present Illness - General Date of Service: 01/06/21 Admit Problem/Dx: Admission Diagnosis/Problem Admission Diagnosis/Problem Cannabinoid hyperemesis syndrome - History of Present Illness Initial Comments - Free Text/Narative: 25 yo female who presents with two week history of nausea and vomiting. PAtient reports she felt like she had the flu but got better. The past two days her nausea returned so came to the ED. She denies any fevers, or diarrhea. Patient reports she feels ill like the last time she had pyelonephritis. Back Pain Score (Numeric/FACES): 9 - Related Data Allergies/Adverse Reactions: Allergies Allergy/AdvReac Type Severity Reaction Status Date / Time Sulfa (Sulfonamide Allergy Hives Verified 01/06/21 02:27 Antibiotics) Home Medications: Home Meds Pantoprazole [ProTONIX] 40 mg PO DAILY 09/17/19 [History] Ondansetron [Zofran] 4 mg PO Q8H PRN #15 tab 11/15/19 [Rx] Sertraline [Zoloft] 100 mg PO DAILY 11/15/19 [History] buPROPion HCL [Wellbutrin Xl] 150 mg PO DAILY 11/18/19 [History] Ciprofloxacin [Ciprofloxacin HCl] 500 mg PO BID 8 Days #16 tab 11/20/19 [Rx] Ibuprofen 600 mg PO Q6HR PRN #30 tablet 06/13/20 [Rx] Ondansetron [Zofran ODT] 4 mg PO Q6H PRN #12 tab.dis 06/13/20 [Rx] Promethazine [Phenergan] 25 mg PO Q6H PRN #12 tab 06/13/20 [Rx] Capsaicin 60 gm TP BID PRN #1 cream..g. 01/05/21 [Rx] Omeprazole Magnesium [Prilosec Otc] 20 mg PO BID #30 tablet. 01/05/21 [Rx] Ondansetron [Zofran ODT] 4 mg PO Q6H PRN #12 tab.dis 01/05/21 [Rx] Past Medical History - Past Health History Medical/Surgical History: Denies Medical/Surgical History HEENT History: Reports: Other (See Below) Other HEENT History: wears glasses/contacts, chronic sinus infections Cardiovascular History: Reports: None Respiratory History: Reports: Asthma, Other (See Below) Other Respiratory History: pleursiy Gastrointestinal History: Reports: GERD, Other (See Below) Other Gastrointestinal History: epigastric pain Genitourinary History: Reports: Renal Calculus Other Genitourinary History: kidney infection [employer] History: Reports: Other (See Below) Other OB/BYN History: IUD placed Musculoskeletal History: Reports: None Neurological History: Reports: Migraines Psychiatric History: Reports: Anxiety, Depression, PTSD Endocrine/Metabolic History: Reports: None Hematologic History: Reports: None Immunologic History: Reports: None Oncologic (Cancer) History: Reports: None Dermatologic History: Reports: None - Infectious Disease History Infectious Disease History: Reports: Shingles - Past Surgical History Head Surgeries/Procedures: Reports: None HEENT Surgical History: Reports: Tonsillectomy, Other (See Below) Other HEENT Surgeries/Procedures: Ear canal surgery Cardiovascular Surgical History: Reports: None Respiratory Surgical History: Reports: None GI Surgical History: Reports: None Female Surgical History: Reports: None Endocrine Surgical History: Reports: None Neurological Surgical History: Reports: None Musculoskeletal Surgical History: Reports: None Oncologic Surgical History: Reports: None Dermatological Surgical History: Reports: None Social & Family History - Family History Family Medical History: No Pertinent Family History - Tobacco Use Tobacco Use Status *Q: Never Tobacco User Second Hand Smoke Exposure: Yes - Caffeine Use Caffeine Use: Reports: Energy Drinks, Soda - Recreational Drug Use Recreational Drug Use: Yes Recreational Drug Type: Reports: Marijuana/Hashish Recreational Drug Use Frequency: Socially H&P Review of Systems - Review of Systems: Review Of Systems: Comprehensive ROS is negative, except as noted in HPI. Exam - Exam Exam: See Below - Vital Signs Vital Signs: Last Vital Signs Temp 36.8 C 01/05/21 17:18 Pulse 67 01/06/21 02:09 Resp 17 01/06/21 02:09 BP 141/87 H 01/06/21 02:09 Pulse Ox 97 01/06/21 02:09 Weight: 56.699 kg - Exam General: Alert, Oriented HEENT: Mucosa Moist & [place] Lungs: Clear to Auscultation, Normal Respiratory Effort Cardiovascular: Regular Rate, Regular Rhythm GI/Abdominal Exam: Normal Bowel Sounds, Soft, Non-Tender Extremities: Non-Tender, No Pedal Edema Skin: Warm, Dry, Intact Neurological: No: Focal Deficit - Patient Data Lab Results Last 24 hrs: Laboratory Results - last 24 hr 01/05/21 01/05/21 01/05/21 Range/Units 17:40 17:40 17:40 WBC 17.75 H (4.0-11.0) K/uL RBC 5.38 (4.30-5.90) M/uL Hgb 14.7 (12.0-16.0) g/dL Hct 44.4 (36.0-46.0) % MCV 82.5 (80.0-98.0) fL MCH 27.3 (27.0-32.0) pg MCHC 33.1 (31.0-37.0) g/dL RDW Std Deviation 39.2 (28.0-62.0) fl RDW Coeff of [place] 13 (11.0-15.0) % Plt Count 356 (150-400) K/uL MPV 11.00 (7.40-12.00) fL Neut % (Auto) 83.3 H (48.0-80.0) % Lymph % (Auto) 8.8 L (16.0-40.0) % [place] % (Auto) 7.1 (0.0-15.0) % Eos % (Auto) 0.6 (0.0-7.0) % Baso % (Auto) 0.2 (0.0-1.5) % Neut # (Auto) 14.8 H (1.4-5.7) K/uL Lymph # (Auto) 1.6 (0.6-2.4) K/uL [place] # (Auto) 1.3 H (0.0-0.8) K/uL Eos # (Auto) 0.1 (0.0-0.7) K/uL Baso # (Auto) 0.0 (0.0-0.1) K/uL Nucleated RBC % 0.0 /100WBC Nucleated RBCs # 0 K/uL Sodium 138 (136-145) mmol/L Potassium 3.6 (3.5-5.1) mmol/L Chloride 96 L (98-107) mmol/L Carbon Dioxide 31.9 (21.0-32.0) mmol/L BUN 11 (7.0-18.0) mg/dL Creatinine 0.8 (0.6-1.0) mg/dL Est Cr Clr Drug Dosing 81.12 mL/min Estimated GFR (MDRD) > 60.0 ml/min Glucose 115 H (74-106) mg/dL Lactic Acid (0.4-2.0) mmol/L Calcium 10.2 H (8.5-10.1) mg/dL Magnesium 2.1 (1.8-2.4) mg/dL Total Bilirubin 0.3 (0.2-1.0) mg/dL AST 25 (15-37) IU/L ALT 35 (14-63) IU/L Alkaline Phosphatase 76 (46-116) U/L Total Protein 8.4 H (6.4-8.2) g/dL Albumin 5.0 (3.4-5.0) g/dL Globulin 3.4 (2.6-4.0) g/dL Albumin/Globulin Ratio 1.5 (0.9-1.6) Lipase 110 (73-393) U/L HCG, Qual NEGATIVE (NEG) Urine Color Urine Appearance Urine pH (5.0-8.0) Ur Specific [place] (1.001-1.035) Urine Protein (NEGATIVE) mg/dL Urine Glucose (UA) (NEGATIVE) mg/dL Urine Ketones (NEGATIVE) mg/dL Urine Occult Blood (NEGATIVE) Urine Nitrite (NEGATIVE) Urine Bilirubin (NEGATIVE) Urine Urobilinogen (<2.0) EU/dL Ur Leukocyte Esterase (NEGATIVE) Urine RBC (0-2/HPF) Urine WBC (0-5/HPF) Ur Epithelial Cells (NONE-FEW) Amorphous Sediment (NEGATIVE) Urine Bacteria (NEGATIVE) Urine HCG, Qual (NEGATIVE) Urine Opiates Screen (NEGATIVE) Ur Oxycodone Screen (NEGATIVE) Urine Methadone Screen (NEGATIVE) Ur Barbiturates Screen (NEGATIVE) Ur Phencyclidine Scrn (NEGATIVE) Ur Amphetamine Screen (NEGATIVE) U Methamphetamines Scrn (NEGATIVE) U Benzodiazepines Scrn (NEGATIVE) U Cocaine Metab Screen (NEGATIVE) U Marijuana (THC) Screen (NEGATIVE) SARS-CoV-2 RNA (JAMIE) (NEGATIVE) 01/05/21 01/05/21 01/05/21 Range/Units 17:40 21:00 21:00 WBC (4.0-11.0) K/uL RBC (4.30-5.90) M/uL Hgb (12.0-16.0) g/dL Hct (36.0-46.0) % MCV (80.0-98.0) fL MCH (27.0-32.0) pg MCHC (31.0-37.0) g/dL RDW Std Deviation (28.0-62.0) fl RDW Coeff of [place] (11.0-15.0) % Plt Count (150-400) K/uL MPV (7.40-12.00) fL Neut % (Auto) (48.0-80.0) % Lymph % (Auto) (16.0-40.0) % [place] % (Auto) (0.0-15.0) % Eos % (Auto) (0.0-7.0) % Baso % (Auto) (0.0-1.5) % Neut # (Auto) (1.4-5.7) K/uL Lymph # (Auto) (0.6-2.4) K/uL [place] # (Auto) (0.0-0.8) K/uL Eos # (Auto) (0.0-0.7) K/uL Baso # (Auto) (0.0-0.1) K/uL Nucleated RBC % /100WBC Nucleated RBCs # K/uL Sodium (136-145) mmol/L Potassium (3.5-5.1) mmol/L Chloride (98-107) mmol/L Carbon Dioxide (21.0-32.0) mmol/L BUN (7.0-18.0) mg/dL Creatinine (0.6-1.0) mg/dL Est Cr Clr Drug Dosing mL/min Estimated GFR (MDRD) ml/min Glucose (74-106) mg/dL Lactic Acid 3.3 H* (0.4-2.0) mmol/L Calcium (8.5-10.1) mg/dL Magnesium (1.8-2.4) mg/dL Total Bilirubin (0.2-1.0) mg/dL AST (15-37) IU/L ALT (14-63) IU/L Alkaline Phosphatase (46-116) U/L Total Protein (6.4-8.2) g/dL Albumin (3.4-5.0) g/dL Globulin (2.6-4.0) g/dL Albumin/Globulin Ratio (0.9-1.6) Lipase (73-393) U/L HCG, Qual (NEG) Urine Color YELLOW Urine Appearance SLT CLOUDY Urine pH 8.5 H (5.0-8.0) Ur Specific [place] 1.015 (1.001-1.035) Urine Protein NEGATIVE (NEGATIVE) mg/dL Urine Glucose (UA) 500 H (NEGATIVE) mg/dL Urine Ketones NEGATIVE (NEGATIVE) mg/dL Urine Occult Blood MODERATE H (NEGATIVE) Urine Nitrite NEGATIVE (NEGATIVE) Urine Bilirubin NEGATIVE (NEGATIVE) Urine Urobilinogen 0.2 (<2.0) EU/dL Ur Leukocyte Esterase NEGATIVE (NEGATIVE) Urine RBC 1-3 (0-2/HPF) Urine WBC 1-4 (0-5/HPF) Ur Epithelial Cells FEW (NONE-FEW) Amorphous Sediment LIGHT (NEGATIVE) Urine Bacteria 1+ H (NEGATIVE) Urine HCG, Qual NEGATIVE (NEGATIVE) Urine Opiates Screen (NEGATIVE) Ur Oxycodone Screen (NEGATIVE) Urine Methadone Screen (NEGATIVE) Ur Barbiturates Screen (NEGATIVE) Ur Phencyclidine Scrn (NEGATIVE) Ur Amphetamine Screen (NEGATIVE) U Methamphetamines Scrn (NEGATIVE) U Benzodiazepines Scrn (NEGATIVE) U Cocaine Metab Screen (NEGATIVE) U Marijuana (THC) Screen (NEGATIVE) SARS-CoV-2 RNA (JAMIE) (NEGATIVE) 01/05/21 01/05/21 01/05/21 Range/Units 21:00 21:25 22:45 WBC (4.0-11.0) K/uL RBC (4.30-5.90) M/uL Hgb (12.0-16.0) g/dL Hct (36.0-46.0) % MCV (80.0-98.0) fL MCH (27.0-32.0) pg MCHC (31.0-37.0) g/dL RDW Std Deviation (28.0-62.0) fl RDW Coeff of [place] (11.0-15.0) % Plt Count (150-400) K/uL MPV (7.40-12.00) fL Neut % (Auto) (48.0-80.0) % Lymph % (Auto) (16.0-40.0) % [place] % (Auto) (0.0-15.0) % Eos % (Auto) (0.0-7.0) % Baso % (Auto) (0.0-1.5) % Neut # (Auto) (1.4-5.7) K/uL Lymph # (Auto) (0.6-2.4) K/uL [place] # (Auto) (0.0-0.8) K/uL Eos # (Auto) (0.0-0.7) K/uL Baso # (Auto) (0.0-0.1) K/uL Nucleated RBC % /100WBC Nucleated RBCs # K/uL Sodium (136-145) mmol/L Potassium (3.5-5.1) mmol/L Chloride (98-107) mmol/L Carbon Dioxide (21.0-32.0) mmol/L BUN (7.0-18.0) mg/dL Creatinine (0.6-1.0) mg/dL Est Cr Clr Drug Dosing mL/min Estimated GFR (MDRD) ml/min Glucose (74-106) mg/dL Lactic Acid 2.9 H* (0.4-2.0) mmol/L Calcium (8.5-10.1) mg/dL Magnesium (1.8-2.4) mg/dL Total Bilirubin (0.2-1.0) mg/dL AST (15-37) IU/L ALT (14-63) IU/L Alkaline Phosphatase (46-116) U/L Total Protein (6.4-8.2) g/dL Albumin (3.4-5.0) g/dL Globulin (2.6-4.0) g/dL Albumin/Globulin Ratio (0.9-1.6) Lipase (73-393) U/L HCG, Qual (NEG) Urine Color Urine Appearance Urine pH (5.0-8.0) Ur Specific [place] (1.001-1.035) Urine Protein (NEGATIVE) mg/dL Urine Glucose (UA) (NEGATIVE) mg/dL Urine Ketones (NEGATIVE) mg/dL Urine Occult Blood (NEGATIVE) Urine Nitrite (NEGATIVE) Urine Bilirubin (NEGATIVE) Urine Urobilinogen (<2.0) EU/dL Ur Leukocyte Esterase (NEGATIVE) Urine RBC (0-2/HPF) Urine WBC (0-5/HPF) Ur Epithelial Cells (NONE-FEW) Amorphous Sediment (NEGATIVE) Urine Bacteria (NEGATIVE) Urine HCG, Qual (NEGATIVE) Urine Opiates Screen NEGATIVE (NEGATIVE) Ur Oxycodone Screen NEGATIVE (NEGATIVE) Urine Methadone Screen NEGATIVE (NEGATIVE) Ur Barbiturates Screen NEGATIVE (NEGATIVE) Ur Phencyclidine Scrn NEGATIVE (NEGATIVE) Ur Amphetamine Screen NEGATIVE (NEGATIVE) U Methamphetamines Scrn NEGATIVE (NEGATIVE) U Benzodiazepines Scrn NEGATIVE (NEGATIVE) U Cocaine Metab Screen NEGATIVE (NEGATIVE) U Marijuana (THC) Screen POSITIVE (NEGATIVE) SARS-CoV-2 RNA (JAMIE) NEGATIVE (NEGATIVE) Result Diagrams: 01/06/21 02:45 01/06/21 02:45 Sepsis Event Note - Focused Exam Vital Signs: Vital Signs Temp Pulse Resp BP Pulse Ox 01/06/21 02:09 67 17 141/87 H 97 01/05/21 22:26 64 16 145/88 H 99 01/05/21 17:18 36.8 C 63 15 158/112 H 100 Problem List Initiated/Reviewed/Updated: Yes Orders Last 24hrs: Active Orders 24 hr Category Date Time Status Patient Status [ADT] Routine ADT 01/05/21 22:53 Active Antiembolic Devices [RC] PER UNIT ROUTINE Care 01/06/21 02:25 Ordered Oxygen Therapy [RC] PRN Care 01/06/21 02:24 Ordered Telemetry Monitoring [Cardiac Monitoring] [RC] Q8HR Care 01/06/21 01:23 Active Up ad Key [RC] ASDIRECTED Care 01/06/21 02:24 Ordered VTE/DVT Education [RC] PER UNIT ROUTINE Care 01/06/21 02:24 Ordered Vital Signs [RC] Q4H Care 01/06/21 02:24 Ordered Clear Liquid Diet [DIET] Diet 01/06/21 Breakfast Ordered CBC WITH AUTO DIFF [HEME] AM Lab 01/06/21 05:11 Ordered COMPREHENSIVE METABOLIC PN,CMP [CHEM] AM Lab 01/06/21 05:11 Ordered CULTURE BLOOD [BC] Stat Lab 01/06/21 02:24 Ordered CULTURE BLOOD [BC] Stat Lab 01/06/21 02:24 Ordered CULTURE URINE [MREF] Routine Lab 01/06/21 02:24 Ordered LACTATE SEPSIS W/ REFLEX [CHEM] AM Lab 01/06/21 05:11 Ordered Dextrose 5%-Lactated Ringers 1,000 ml Med 01/05/21 18:30 Active IV ASDIRECTED Lactated Ringers [Ringers, Lactated] 1,000 ml Med 01/05/21 19:30 Active IV ASDIRECTED Ondansetron [Zofran] Med 01/06/21 02:24 Ordered 4 mg IVPUSH Q4H PRN Promethazine [Phenergan] Med 01/06/21 02:24 Ordered 25 mg IM Q6H PRN Sodium Chloride 0.9% @ 125 MLS/HR (1,000ml) Med 01/06/21 02:30 Ordered Sodium Chloride 0.9% [Normal Saline] 1,000 ml IV ASDIRECTED cefTRIAXone [Rocephin in Dextrose,Iso-Osm 1 GM/50 ML] 1 Med 01/06/21 02:30 Active gm Premix Bag 1 bag IV Q24H Blood Culture x2 Reflex Set [OM.PC] Stat Ot 01/06/21 02:24 Ordered Sequential Compression Device [OM.PC] Per Unit Routine Oth 01/06/21 02:25 Ordered Resuscitation Status Routine Resus Stat 01/06/21 02:24 Ordered Medication Orders Dextrose/Lactated Ringer's (Dextrose 5%-Lactated Ringers) 1,000 mls @ 999 mls/hr IV ASDIRECTED [facility] Last Admin: 01/05/21 18:36 Dose: 999 mls/hr Documented by: HOLLIE Lactated Ringer's (Ringers, Lactated) 1,000 mls @ 999 mls/hr IV ASDIRECTED [facility] Last Admin: 01/05/21 22:11 Dose: 999 mls/hr Documented by: TEA Sodium Chloride (Normal Saline) 1,000 mls @ 125 mls/hr IV ASDIRECTED [facility] Ceftriaxone Sodium/Dextrose 1 (gm/ Premix) 50 mls @ 100 mls/hr IV Q24H [facility] Ondansetron HCl (Ondansetron 4 Mg/2 Ml Sdv) 4 mg IVPUSH Q4H PRN PRN Reason: nausea Promethazine HCl (Promethazine 25 Mg/Ml Sdv) 25 mg IM Q6H PRN PRN Reason: nausea Assessment/Plan Comment:: 25 yo female admitted for gastroenteritis with dehydration. Will treat with Rocephin until sepsis has been ruled out. Patient is feeling much better after IV fluids.
[2021-01-06] MEDS: Sodium Chloride 0.9% 1,000 ML IV SCH ×3 (02:46→20:04)
[2021-01-06] MEDS: cefTRIAXone 1 GM in Premix Bag 1 BAG IV SCH (02:47)
[2021-01-06 03:22] LABS: BLOOD UREA NITROGEN,BUN 6 mg/dL (7.0-18.0); CARBON DIOXIDE,CO2 33.3 mmol/L (21.0-32.0); CHLORIDE,CL 101 mmol/L (98-107); GLUCOSE RANDOM 98 mg/dL (74-106); POTASSIUM,K 3.9 mmol/L (3.5-5.1); SODIUM,NA 140 mmol/L (136-145)
--- NOTE | 2021-01-06 09:48 | PCM.PN ---
- General Info Date of Service: 01/06/21 - Review of Systems Systems Review Comment:: feeling better, nausea improving - Patient Data Vitals - Most Recent: Last Vital Signs Temp 36.8 C 01/06/21 08:00 Pulse 59 L 01/06/21 08:00 Resp 18 01/06/21 08:00 BP 122/72 01/06/21 08:00 Pulse Ox 98 01/06/21 08:00 Weight - Most Recent: 56.291 kg I&O - Last 24 Hours: Intake & Output 01/05/21 01/06/21 01/06/21 22:59 06:59 14:59 Intake Total 250 Balance 250 Lab Results Last 24 Hours: Laboratory Results - last 24 hr 01/05/21 01/05/21 01/05/21 Range/Units 17:40 17:40 17:40 WBC 17.75 H (4.0-11.0) K/uL RBC 5.38 (4.30-5.90) M/uL Hgb 14.7 (12.0-16.0) g/dL Hct 44.4 (36.0-46.0) % MCV 82.5 (80.0-98.0) fL MCH 27.3 (27.0-32.0) pg MCHC 33.1 (31.0-37.0) g/dL RDW Std Deviation 39.2 (28.0-62.0) fl RDW Coeff of [place] 13 (11.0-15.0) % Plt Count 356 (150-400) K/uL MPV 11.00 (7.40-12.00) fL Neut % (Auto) 83.3 H (48.0-80.0) % Lymph % (Auto) 8.8 L (16.0-40.0) % [place] % (Auto) 7.1 (0.0-15.0) % Eos % (Auto) 0.6 (0.0-7.0) % Baso % (Auto) 0.2 (0.0-1.5) % Neut # (Auto) 14.8 H (1.4-5.7) K/uL Lymph # (Auto) 1.6 (0.6-2.4) K/uL [place] # (Auto) 1.3 H (0.0-0.8) K/uL Eos # (Auto) 0.1 (0.0-0.7) K/uL Baso # (Auto) 0.0 (0.0-0.1) K/uL Nucleated RBC % 0.0 /100WBC Nucleated RBCs # 0 K/uL Sodium 138 (136-145) mmol/L Potassium 3.6 (3.5-5.1) mmol/L Chloride 96 L (98-107) mmol/L Carbon Dioxide 31.9 (21.0-32.0) mmol/L BUN 11 (7.0-18.0) mg/dL Creatinine 0.8 (0.6-1.0) mg/dL Est Cr Clr Drug Dosing 81.12 mL/min Estimated GFR (MDRD) > 60.0 ml/min Glucose 115 H (74-106) mg/dL Lactic Acid (0.4-2.0) mmol/L Calcium 10.2 H (8.5-10.1) mg/dL Magnesium 2.1 (1.8-2.4) mg/dL Total Bilirubin 0.3 (0.2-1.0) mg/dL AST 25 (15-37) IU/L ALT 35 (14-63) IU/L Alkaline Phosphatase 76 (46-116) U/L Total Protein 8.4 H (6.4-8.2) g/dL Albumin 5.0 (3.4-5.0) g/dL Globulin 3.4 (2.6-4.0) g/dL Albumin/Globulin Ratio 1.5 (0.9-1.6) Lipase 110 (73-393) U/L HCG, Qual NEGATIVE (NEG) Urine Color Urine Appearance Urine pH (5.0-8.0) Ur Specific [place] (1.001-1.035) Urine Protein (NEGATIVE) mg/dL Urine Glucose (UA) (NEGATIVE) mg/dL Urine Ketones (NEGATIVE) mg/dL Urine Occult Blood (NEGATIVE) Urine Nitrite (NEGATIVE) Urine Bilirubin (NEGATIVE) Urine Urobilinogen (<2.0) EU/dL Ur Leukocyte Esterase (NEGATIVE) Urine RBC (0-2/HPF) Urine WBC (0-5/HPF) Ur Epithelial Cells (NONE-FEW) Amorphous Sediment (NEGATIVE) Urine Bacteria (NEGATIVE) Urine HCG, Qual (NEGATIVE) Urine Opiates Screen (NEGATIVE) Ur Oxycodone Screen (NEGATIVE) Urine Methadone Screen (NEGATIVE) Ur Barbiturates Screen (NEGATIVE) Ur Phencyclidine Scrn (NEGATIVE) Ur Amphetamine Screen (NEGATIVE) U Methamphetamines Scrn (NEGATIVE) U Benzodiazepines Scrn (NEGATIVE) U Cocaine Metab Screen (NEGATIVE) U Marijuana (THC) Screen (NEGATIVE) SARS-CoV-2 RNA (JAMIE) (NEGATIVE) 01/05/21 01/05/21 01/05/21 Range/Units 17:40 21:00 21:00 WBC (4.0-11.0) K/uL RBC (4.30-5.90) M/uL Hgb (12.0-16.0) g/dL Hct (36.0-46.0) % MCV (80.0-98.0) fL MCH (27.0-32.0) pg MCHC (31.0-37.0) g/dL RDW Std Deviation (28.0-62.0) fl RDW Coeff of [place] (11.0-15.0) % Plt Count (150-400) K/uL MPV (7.40-12.00) fL Neut % (Auto) (48.0-80.0) % Lymph % (Auto) (16.0-40.0) % [place] % (Auto) (0.0-15.0) % Eos % (Auto) (0.0-7.0) % Baso % (Auto) (0.0-1.5) % Neut # (Auto) (1.4-5.7) K/uL Lymph # (Auto) (0.6-2.4) K/uL [place] # (Auto) (0.0-0.8) K/uL Eos # (Auto) (0.0-0.7) K/uL Baso # (Auto) (0.0-0.1) K/uL Nucleated RBC % /100WBC Nucleated RBCs # K/uL Sodium (136-145) mmol/L Potassium (3.5-5.1) mmol/L Chloride (98-107) mmol/L Carbon Dioxide (21.0-32.0) mmol/L BUN (7.0-18.0) mg/dL Creatinine (0.6-1.0) mg/dL Est Cr Clr Drug Dosing mL/min Estimated GFR (MDRD) ml/min Glucose (74-106) mg/dL Lactic Acid 3.3 H* (0.4-2.0) mmol/L Calcium (8.5-10.1) mg/dL Magnesium (1.8-2.4) mg/dL Total Bilirubin (0.2-1.0) mg/dL AST (15-37) IU/L ALT (14-63) IU/L Alkaline Phosphatase (46-116) U/L Total Protein (6.4-8.2) g/dL Albumin (3.4-5.0) g/dL Globulin (2.6-4.0) g/dL Albumin/Globulin Ratio (0.9-1.6) Lipase (73-393) U/L HCG, Qual (NEG) Urine Color YELLOW Urine Appearance SLT CLOUDY Urine pH 8.5 H (5.0-8.0) Ur Specific [place] 1.015 (1.001-1.035) Urine Protein NEGATIVE (NEGATIVE) mg/dL Urine Glucose (UA) 500 H (NEGATIVE) mg/dL Urine Ketones NEGATIVE (NEGATIVE) mg/dL Urine Occult Blood MODERATE H (NEGATIVE) Urine Nitrite NEGATIVE (NEGATIVE) Urine Bilirubin NEGATIVE (NEGATIVE) Urine Urobilinogen 0.2 (<2.0) EU/dL Ur Leukocyte Esterase NEGATIVE (NEGATIVE) Urine RBC 1-3 (0-2/HPF) Urine WBC 1-4 (0-5/HPF) Ur Epithelial Cells FEW (NONE-FEW) Amorphous Sediment LIGHT (NEGATIVE) Urine Bacteria 1+ H (NEGATIVE) Urine HCG, Qual NEGATIVE (NEGATIVE) Urine Opiates Screen (NEGATIVE) Ur Oxycodone Screen (NEGATIVE) Urine Methadone Screen (NEGATIVE) Ur Barbiturates Screen (NEGATIVE) Ur Phencyclidine Scrn (NEGATIVE) Ur Amphetamine Screen (NEGATIVE) U Methamphetamines Scrn (NEGATIVE) U Benzodiazepines Scrn (NEGATIVE) U Cocaine Metab Screen (NEGATIVE) U Marijuana (THC) Screen (NEGATIVE) SARS-CoV-2 RNA (JAMIE) (NEGATIVE) 01/05/21 01/05/21 01/05/21 Range/Units 21:00 21:25 22:45 WBC (4.0-11.0) K/uL RBC (4.30-5.90) M/uL Hgb (12.0-16.0) g/dL Hct (36.0-46.0) % MCV (80.0-98.0) fL MCH (27.0-32.0) pg MCHC (31.0-37.0) g/dL RDW Std Deviation (28.0-62.0) fl RDW Coeff of [place] (11.0-15.0) % Plt Count (150-400) K/uL MPV (7.40-12.00) fL Neut % (Auto) (48.0-80.0) % Lymph % (Auto) (16.0-40.0) % [place] % (Auto) (0.0-15.0) % Eos % (Auto) (0.0-7.0) % Baso % (Auto) (0.0-1.5) % Neut # (Auto) (1.4-5.7) K/uL Lymph # (Auto) (0.6-2.4) K/uL [place] # (Auto) (0.0-0.8) K/uL Eos # (Auto) (0.0-0.7) K/uL Baso # (Auto) (0.0-0.1) K/uL Nucleated RBC % /100WBC Nucleated RBCs # K/uL Sodium (136-145) mmol/L Potassium (3.5-5.1) mmol/L Chloride (98-107) mmol/L Carbon Dioxide (21.0-32.0) mmol/L BUN (7.0-18.0) mg/dL Creatinine (0.6-1.0) mg/dL Est Cr Clr Drug Dosing mL/min Estimated GFR (MDRD) ml/min Glucose (74-106) mg/dL Lactic Acid 2.9 H* (0.4-2.0) mmol/L Calcium (8.5-10.1) mg/dL Magnesium (1.8-2.4) mg/dL Total Bilirubin (0.2-1.0) mg/dL AST (15-37) IU/L ALT (14-63) IU/L Alkaline Phosphatase (46-116) U/L Total Protein (6.4-8.2) g/dL Albumin (3.4-5.0) g/dL Globulin (2.6-4.0) g/dL Albumin/Globulin Ratio (0.9-1.6) Lipase (73-393) U/L HCG, Qual (NEG) Urine Color Urine Appearance Urine pH (5.0-8.0) Ur Specific [place] (1.001-1.035) Urine Protein (NEGATIVE) mg/dL Urine Glucose (UA) (NEGATIVE) mg/dL Urine Ketones (NEGATIVE) mg/dL Urine Occult Blood (NEGATIVE) Urine Nitrite (NEGATIVE) Urine Bilirubin (NEGATIVE) Urine Urobilinogen (<2.0) EU/dL Ur Leukocyte Esterase (NEGATIVE) Urine RBC (0-2/HPF) Urine WBC (0-5/HPF) Ur Epithelial Cells (NONE-FEW) Amorphous Sediment (NEGATIVE) Urine Bacteria (NEGATIVE) Urine HCG, Qual (NEGATIVE) Urine Opiates Screen NEGATIVE (NEGATIVE) Ur Oxycodone Screen NEGATIVE (NEGATIVE) Urine Methadone Screen NEGATIVE (NEGATIVE) Ur Barbiturates Screen NEGATIVE (NEGATIVE) Ur Phencyclidine Scrn NEGATIVE (NEGATIVE) Ur Amphetamine Screen NEGATIVE (NEGATIVE) U Methamphetamines Scrn NEGATIVE (NEGATIVE) U Benzodiazepines Scrn NEGATIVE (NEGATIVE) U Cocaine Metab Screen NEGATIVE (NEGATIVE) U Marijuana (THC) Screen POSITIVE (NEGATIVE) SARS-CoV-2 RNA (JAMIE) NEGATIVE (NEGATIVE) 01/06/21 01/06/21 01/06/21 Range/Units 02:45 02:45 02:45 WBC 12.01 H (4.0-11.0) K/uL RBC 4.72 (4.30-5.90) M/uL Hgb 13.0 (12.0-16.0) g/dL Hct 39.1 (36.0-46.0) % MCV 82.8 (80.0-98.0) fL MCH 27.5 (27.0-32.0) pg MCHC 33.2 (31.0-37.0) g/dL RDW Std Deviation 39.6 (28.0-62.0) fl RDW Coeff of [place] 13 (11.0-15.0) % Plt Count 286 (150-400) K/uL MPV 10.20 (7.40-12.00) fL Neut % (Auto) 75.8 (48.0-80.0) % Lymph % (Auto) 18.1 (16.0-40.0) % [place] % (Auto) 5.9 (0.0-15.0) % Eos % (Auto) 0.1 (0.0-7.0) % Baso % (Auto) 0.1 (0.0-1.5) % Neut # (Auto) 9.1 H (1.4-5.7) K/uL Lymph # (Auto) 2.2 (0.6-2.4) K/uL [place] # (Auto) 0.7 (0.0-0.8) K/uL Eos # (Auto) 0.0 (0.0-0.7) K/uL Baso # (Auto) 0.0 (0.0-0.1) K/uL Nucleated RBC % 0.0 /100WBC Nucleated RBCs # 0 K/uL Sodium 140 (136-145) mmol/L Potassium 3.9 (3.5-5.1) mmol/L Chloride 101 (98-107) mmol/L Carbon Dioxide 33.3 H (21.0-32.0) mmol/L BUN 6 L (7.0-18.0) mg/dL Creatinine 0.8 (0.6-1.0) mg/dL Est Cr Clr Drug Dosing 81.12 mL/min Estimated GFR (MDRD) > 60.0 ml/min Glucose 98 (74-106) mg/dL Lactic Acid 1.5 (0.4-2.0) mmol/L Calcium 8.7 (8.5-10.1) mg/dL Magnesium (1.8-2.4) mg/dL Total Bilirubin 0.4 (0.2-1.0) mg/dL AST 18 (15-37) IU/L ALT 31 (14-63) IU/L Alkaline Phosphatase 58 (46-116) U/L Total Protein 6.6 (6.4-8.2) g/dL Albumin 3.7 (3.4-5.0) g/dL Globulin 2.9 (2.6-4.0) g/dL Albumin/Globulin Ratio 1.3 (0.9-1.6) Lipase (73-393) U/L HCG, Qual (NEG) Urine Color Urine Appearance Urine pH (5.0-8.0) Ur Specific [place] (1.001-1.035) Urine Protein (NEGATIVE) mg/dL Urine Glucose (UA) (NEGATIVE) mg/dL Urine Ketones (NEGATIVE) mg/dL Urine Occult Blood (NEGATIVE) Urine Nitrite (NEGATIVE) Urine Bilirubin (NEGATIVE) Urine Urobilinogen (<2.0) EU/dL Ur Leukocyte Esterase (NEGATIVE) Urine RBC (0-2/HPF) Urine WBC (0-5/HPF) Ur Epithelial Cells (NONE-FEW) Amorphous Sediment (NEGATIVE) Urine Bacteria (NEGATIVE) Urine HCG, Qual (NEGATIVE) Urine Opiates Screen (NEGATIVE) Ur Oxycodone Screen (NEGATIVE) Urine Methadone Screen (NEGATIVE) Ur Barbiturates Screen (NEGATIVE) Ur Phencyclidine Scrn (NEGATIVE) Ur Amphetamine Screen (NEGATIVE) U Methamphetamines Scrn (NEGATIVE) U Benzodiazepines Scrn (NEGATIVE) U Cocaine Metab Screen (NEGATIVE) U Marijuana (THC) Screen (NEGATIVE) SARS-CoV-2 RNA (JAMIE) (NEGATIVE) Med Orders - Current: Current Medications Dextrose/Lactated Ringer's (Dextrose 5%-Lactated Ringers) 1,000 mls @ 999 mls/hr IV ASDIRECTED [facility] Last Admin: 01/05/21 18:36 Dose: 999 mls/hr Documented by: Lactated Ringer's (Ringers, Lactated) 1,000 mls @ 999 mls/hr IV ASDIRECTED [facility] Last Admin: 01/05/21 22:11 Dose: 999 mls/hr Documented by: Sodium Chloride (Normal Saline) 1,000 mls @ 125 mls/hr IV ASD[facility]RECTED [facility] Last Admin: 01/06/21 02:46 Dose: 125 mls/hr Documented by: Ceftriaxone Sodium/Dextrose 1 (gm/ Premix) 50 mls @ 100 mls/hr IV Q24H [facility] Last Admin: 01/06/21 02:47 Dose: 100 mls/hr Documented by: Ondansetron HCl (Ondansetron 4 Mg/2 Ml Sdv) 4 mg IVPUSH Q4H PRN PRN Reason: nausea Promethazine HCl (Promethazine 25 Mg/Ml Sdv) 25 mg IM Q6H PRN PRN Reason: nausea Discontinued Medications Al Hydroxide/Mg Hydroxide 15 ml/ Metoclopramide HCl 5 mg/Lidocaine HCl 5 ml 0 ml PO ONETIME ONE Stop: 01/05/21 21:19 Last Admin: 01/05/21 22:13 Dose: 1 each Documented by: Diphenhydramine HCl (Diphenhydramine 50 Mg/Ml Sdv) 50 mg IVPUSH ONETIME ONE Stop: 01/05/21 18:18 Last Admin: 01/05/21 18:36 Dose: 50 mg Documented by: Haloperidol Lactate (Haloperidol Lactate 5 Mg/Ml Sdv) 5 mg IM ONETIME ONE Stop: 01/05/21 18:18 Last Admin: 01/05/21 18:36 Dose: 5 mg Documented by: Hydromorphone HCl (Hydromorphone 1 Mg/Ml Syringe) 1 mg IVPUSH ONETIME ONE Stop: 01/05/21 21:23 Last Admin: 01/05/21 22:24 Dose: 1 mg Documented by: Lactated Ringer's (Ringers, Lactated) 1,000 mls @ 999 mls/hr IV .BOLUS ONE Stop: 01/05/21 21:26 Last Admin: 01/05/21 21:05 Dose: 999 mls/hr Documented by: Pantoprazole Sodium 40 mg/ (Sodium Chloride) 20 mls @ 420 mls/hr IVPUSH ONETIME ONE Stop: 01/05/21 21:19 Last Admin: 01/05/21 22:12 Dose: 420 mls/hr Documented by: Iopamidol (Iopamidol 755 Mg/Ml 100 Ml Bottle) 100 ml IVPUSH ONETIME ONE Stop: 01/05/21 20:15 Last Admin: 01/05/21 20:16 Dose: 100 ml Documented by: Ondansetron HCl (Ondansetron 4 Mg Tab.Dis) 4 mg PO ONETIME ONE Stop: 01/05/21 17:59 Last Admin: 01/05/21 18:36 Dose: 4 mg Documented by: Ondansetron HCl (Ondansetron 4 Mg/2 Ml Sdv) 4 mg IVPUSH ONETIME ONE Stop: 01/05/21 22:22 Last Admin: 01/05/21 22:22 Dose: 4 mg Documented by: Ondansetron HCl (Ondansetron 4 Mg/2 Ml Sdv) Confirm Administered Dose 4 mg .ROUTE .STK-MED ONE Stop: 01/05/21 22:21 Last Admin: 01/05/21 22:23 Dose: Not Given Documented by: - Exam General: Alert, Oriented Lungs: Clear to Auscultation, Normal Respiratory Effort Cardiovascular: Regular Rate, Regular Rhythm GI/Abdominal Exam: Normal Bowel Sounds, Soft, Non-Tender, No Distention Extremities: Non-Tender, No Pedal Edema Skin: Warm, Dry, Intact Neurological: No New Focal Deficit - Patient Data Lab Results Last 24 hrs: Laboratory Results - last 24 hr 01/05/21 01/05/21 01/05/21 Range/Units 17:40 17:40 17:40 WBC 17.75 H (4.0-11.0) K/uL RBC 5.38 (4.30-5.90) M/uL Hgb 14.7 (12.0-16.0) g/dL Hct 44.4 (36.0-46.0) % MCV 82.5 (80.0-98.0) fL MCH 27.3 (27.0-32.0) pg MCHC 33.1 (31.0-37.0) g/dL RDW Std Deviation 39.2 (28.0-62.0) fl RDW Coeff of [place] 13 (11.0-15.0) % Plt Count 356 (150-400) K/uL MPV 11.00 (7.40-12.00) fL Neut % (Auto) 83.3 H (48.0-80.0) % Lymph % (Auto) 8.8 L (16.0-40.0) % [place] % (Auto) 7.1 (0.0-15.0) % Eos % (Auto) 0.6 (0.0-7.0) % Baso % (Auto) 0.2 (0.0-1.5) % Neut # (Auto) 14.8 H (1.4-5.7) K/uL Lymph # (Auto) 1.6 (0.6-2.4) K/uL [place] # (Auto) 1.3 H (0.0-0.8) K/uL Eos # (Auto) 0.1 (0.0-0.7) K/uL Baso # (Auto) 0.0 (0.0-0.1) K/uL Nucleated RBC % 0.0 /100WBC Nucleated RBCs # 0 K/uL Sodium 138 (136-145) mmol/L Potassium 3.6 (3.5-5.1) mmol/L Chloride 96 L (98-107) mmol/L Carbon Dioxide 31.9 (21.0-32.0) mmol/L BUN 11 (7.0-18.0) mg/dL Creatinine 0.8 (0.6-1.0) mg/dL Est Cr Clr Drug Dosing 81.12 mL/min Estimated GFR (MDRD) > 60.0 ml/min Glucose 115 H (74-106) mg/dL Lactic Acid (0.4-2.0) mmol/L Calcium 10.2 H (8.5-10.1) mg/dL Magnesium 2.1 (1.8-2.4) mg/dL Total Bilirubin 0.3 (0.2-1.0) mg/dL AST 25 (15-37) IU/L ALT 35 (14-63) IU/L Alkaline Phosphatase 76 (46-116) U/L Total Protein 8.4 H (6.4-8.2) g/dL Albumin 5.0 (3.4-5.0) g/dL Globulin 3.4 (2.6-4.0) g/dL Albumin/Globulin Ratio 1.5 (0.9-1.6) Lipase 110 (73-393) U/L HCG, Qual NEGATIVE (NEG) Urine Color Urine Appearance Urine pH (5.0-8.0) Ur Specific [place] (1.001-1.035) Urine Protein (NEGATIVE) mg/dL Urine Glucose (UA) (NEGATIVE) mg/dL Urine Ketones (NEGATIVE) mg/dL Urine Occult Blood (NEGATIVE) Urine Nitrite (NEGATIVE) Urine Bilirubin (NEGATIVE) Urine Urobilinogen (<2.0) EU/dL Ur Leukocyte Esterase (NEGATIVE) Urine RBC (0-2/HPF) Urine WBC (0-5/HPF) Ur Epithelial Cells (NONE-FEW) Amorphous Sediment (NEGATIVE) Urine Bacteria (NEGATIVE) Urine HCG, Qual (NEGATIVE) Urine Opiates Screen (NEGATIVE) Ur Oxycodone Screen (NEGATIVE) Urine Methadone Screen (NEGATIVE) Ur Barbiturates Screen (NEGATIVE) Ur Phencyclidine Scrn (NEGATIVE) Ur Amphetamine Screen (NEGATIVE) U Methamphetamines Scrn (NEGATIVE) U Benzodiazepines Scrn (NEGATIVE) U Cocaine Metab Screen (NEGATIVE) U Marijuana (THC) Screen (NEGATIVE) SARS-CoV-2 RNA (JAMIE) (NEGATIVE) 0901/05/21 01/05/21 Range/Units 17:40 21:00 21:00 WBC (4.0-11.0) K/uL RBC (4.30-5.90) M/uL Hgb (12.0-16.0) g/dL Hct (36.0-46.0) % MCV (80.0-98.0) fL MCH (27.0-32.0) pg MCHC (31.0-37.0) g/dL RDW Std Deviation (28.0-62.0) fl RDW Coeff of [place] (11.0-15.0) % Plt Count (150-400) K/uL MPV (7.40-12.00) fL Neut % (Auto) (48.0-80.0) % Lymph % (Auto) (16.0-40.0) % [place] % (Auto) (0.0-15.0) % Eos % (Auto) (0.0-7.0) % Baso % (Auto) (0.0-1.5) % Neut # (Auto) (1.4-5.7) K/uL Lymph # (Auto) (0.6-2.4) K/uL [place] # (Auto) (0.0-0.8) K/uL Eos # (Auto) (0.0-0.7) K/uL Baso # (Auto) (0.0-0.1) K/uL Nucleated RBC % /100WBC Nucleated RBCs # K/uL Sodium (136-145) mmol/L Potassium (3.5-5.1) mmol/L Chloride (98-107) mmol/L Carbon Dioxide (21.0-32.0) mmol/L BUN (7.0-18.0) mg/dL Creatinine (0.6-1.0) mg/dL Est Cr Clr Drug Dosing mL/min Estimated GFR (MDRD) ml/min Glucose (74-106) mg/dL Lactic Acid 3.3 H* (0.4-2.0) mmol/L Calcium (8.5-10.1) mg/dL Magnesium (1.8-2.4) mg/dL Total Bilirubin (0.2-1.0) mg/dL AST (15-37) IU/L ALT (14-63) IU/L Alkaline Phosphatase (46-116) U/L Total Protein (6.4-8.2) g/dL Albumin (3.4-5.0) g/dL Globulin (2.6-4.0) g/dL Albumin/Globulin Ratio (0.9-1.6) Lipase (73-393) U/L HCG, Qual (NEG) Urine Color YELLOW Urine Appearance SLT CLOUDY Urine pH 8.5 H (5.0-8.0) Ur Specific [place] 1.015 (1.001-1.035) Urine Protein NEGATIVE (NEGATIVE) mg/dL Urine Glucose (UA) 500 H (NEGATIVE) mg/dL Urine Ketones NEGATIVE (NEGATIVE) mg/dL Urine Occult Blood MODERATE H (NEGATIVE) Urine Nitrite NEGATIVE (NEGATIVE) Urine Bilirubin NEGATIVE (NEGATIVE) Urine Urobilinogen 0.2 (<2.0) EU/dL Ur Leukocyte Esterase NEGATIVE (NEGATIVE) Urine RBC 1-3 (0-2/HPF) Urine WBC 1-4 (0-5/HPF) Ur Epithelial Cells FEW (NONE-FEW) Amorphous Sediment LIGHT (NEGATIVE) Urine Bacteria 1+ H (NEGATIVE) Urine HCG, Qual NEGATIVE (NEGATIVE) Urine Opiates Screen (NEGATIVE) Ur Oxycodone Screen (NEGATIVE) Urine Methadone Screen (NEGATIVE) Ur Barbiturates Screen (NEGATIVE) Ur Phencyclidine Scrn (NEGATIVE) Ur Amphetamine Screen (NEGATIVE) U Methamphetamines Scrn (NEGATIVE) U Benzodiazepines Scrn (NEGATIVE) U Cocaine Metab Screen (NEGATIVE) U Marijuana (THC) Screen (NEGATIVE) SARS-CoV-2 RNA (JAMIE) (NEGATIVE) 01/05/21 01/05/21 01/05/21 Range/Units 21:00 21:25 22:45 WBC (4.0-11.0) K/uL RBC (4.30-5.90) M/uL Hgb (12.0-16.0) g/dL Hct (36.0-46.0) % MCV (80.0-98.0) fL MCH (27.0-32.0) pg MCHC (31.0-37.0) g/dL RDW Std Deviation (28.0-62.0) fl RDW Coeff of [place] (11.0-15.0) % Plt Count (150-400) K/uL MPV (7.40-12.00) fL Neut % (Auto) (48.0-80.0) % Lymph % (Auto) (16.0-40.0) % [place] % (Auto) (0.0-15.0) % Eos % (Auto) (0.0-7.0) % Baso % (Auto) (0.0-1.5) % Neut # (Auto) (1.4-5.7) K/uL Lymph # (Auto) (0.6-2.4) K/uL [place] # (Auto) (0.0-0.8) K/uL Eos # (Auto) (0.0-0.7) K/uL Baso # (Auto) (0.0-0.1) K/uL Nucleated RBC % /100WBC Nucleated RBCs # K/uL Sodium (136-145) mmol/L Potassium (3.5-5.1) mmol/L Chloride (98-107) mmol/L Carbon Dioxide (21.0-32.0) mmol/L BUN (7.0-18.0) mg/dL Creatinine (0.6-1.0) mg/dL Est Cr Clr Drug Dosing mL/min Estimated GFR (MDRD) ml/min Glucose (74-106) mg/dL Lactic Acid 2.9 H* (0.4-2.0) mmol/L Calcium (8.5-10.1) mg/dL Magnesium (1.8-2.4) mg/dL Total Bilirubin (0.2-1.0) mg/dL AST (15-37) IU/L ALT (14-63) IU/L Alkaline Phosphatase (46-116) U/L Total Protein (6.4-8.2) g/dL Albumin (3.4-5.0) g/dL Globulin (2.6-4.0) g/dL Albumin/Globulin Ratio (0.9-1.6) Lipase (73-393) U/L HCG, Qual (NEG) Urine Color Urine Appearance Urine pH (5.0-8.0) Ur Specific [place] (1.001-1.035) Urine Protein (NEGATIVE) mg/dL Urine Glucose (UA) (NEGATIVE) mg/dL Urine Ketones (NEGATIVE) mg/dL Urine Occult Blood (NEGATIVE) Urine Nitrite (NEGATIVE) Urine Bilirubin (NEGATIVE) Urine Urobilinogen (<2.0) EU/dL Ur Leukocyte Esterase (NEGATIVE) Urine RBC (0-2/HPF) Urine WBC (0-5/HPF) Ur Epithelial Cells (NONE-FEW) Amorphous Sediment (NEGATIVE) Urine Bacteria (NEGATIVE) Urine HCG, Qual (NEGATIVE) Urine Opiates Screen NEGATIVE (NEGATIVE) Ur Oxycodone Screen NEGATIVE (NEGATIVE) Urine Methadone Screen NEGATIVE (NEGATIVE) Ur Barbiturates Screen NEGATIVE (NEGATIVE) Ur Phencyclidine Scrn NEGATIVE (NEGATIVE) Ur Amphetamine Screen NEGATIVE (NEGATIVE) U Methamphetamines Scrn NEGATIVE (NEGATIVE) U Benzodiazepines Scrn NEGATIVE (NEGATIVE) U Cocaine Metab Screen NEGATIVE (NEGATIVE) U Marijuana (THC) Screen POSITIVE (NEGATIVE) SARS-CoV-2 RNA (JAMIE) NEGATIVE (NEGATIVE) 01/06/21 01/06/21 01/06/21 Range/Units 02:45 02:45 02:45 WBC 12.01 H (4.0-11.0) K/uL RBC 4.72 (4.30-5.90) M/uL Hgb 13.0 (12.0-16.0) g/dL Hct 39.1 (36.0-46.0) % MCV 82.8 (80.0-98.0) fL MCH 27.5 (27.0-32.0) pg MCHC 33.2 (31.0-37.0) g/dL RDW Std Deviation 39.6 (28.0-62.0) fl RDW Coeff of [place] 13 (11.0-15.0) % Plt Count 286 (150-400) K/uL MPV 10.20 (7.40-12.00) fL Neut % (Auto) 75.8 (48.0-80.0) % Lymph % (Auto) 18.1 (16.0-40.0) % [place] % (Auto) 5.9 (0.0-15.0) % Eos % (Auto) 0.1 (0.0-7.0) % Baso % (Auto) 0.1 (0.0-1.5) % Neut # (Auto) 9.1 H (1.4-5.7) K/uL Lymph # (Auto) 2.2 (0.6-2.4) K/uL [place] # (Auto) 0.7 (0.0-0.8) K/uL Eos # (Auto) 0.0 (0.0-0.7) K/uL Baso # (Auto) 0.0 (0.0-0.1) K/uL Nucleated RBC % 0.0 /100WBC Nucleated RBCs # 0 K/uL Sodium 140 (136-145) mmol/L Potassium 3.9 (3.5-5.1) mmol/L Chloride 101 (98-107) mmol/L Carbon Dioxide 33.3 H (21.0-32.0) mmol/L BUN 6 L (7.0-18.0) mg/dL Creatinine 0.8 (0.6-1.0) mg/dL Est Cr Clr Drug Dosing 81.12 mL/min Estimated GFR (MDRD) > 60.0 ml/min Glucose 98 (74-106) mg/dL Lactic Acid 1.5 (0.4-2.0) mmol/L Calcium 8.7 (8.5-10.1) mg/dL Magnesium (1.8-2.4) mg/dL Total Bilirubin 0.4 (0.2-1.0) mg/dL AST 18 (15-37) IU/L ALT 31 (14-63) IU/L Alkaline Phosphatase 58 (46-116) U/L Total Protein 6.6 (6.4-8.2) g/dL Albumin 3.7 (3.4-5.0) g/dL Globulin 2.9 (2.6-4.0) g/dL Albumin/Globulin Ratio 1.3 (0.9-1.6) Lipase (73-393) U/L HCG, Qual (NEG) Urine Color Urine Appearance Urine pH (5.0-8.0) Ur Specific [place] (1.001-1.035) Urine Protein (NEGATIVE) mg/dL Urine Glucose (UA) (NEGATIVE) mg/dL Urine Ketones (NEGATIVE) mg/dL Urine Occult Blood (NEGATIVE) Urine Nitrite (NEGATIVE) Urine Bilirubin (NEGATIVE) Urine Urobilinogen (<2.0) EU/dL Ur Leukocyte Esterase (NEGATIVE) Urine RBC (0-2/HPF) Urine WBC (0-5/HPF) Ur Epithelial Cells (NONE-FEW) Amorphous Sediment (NEGATIVE) Urine Bacteria (NEGATIVE) Urine HCG, Qual (NEGATIVE) Urine Opiates Screen (NEGATIVE) Ur Oxycodone Screen (NEGATIVE) Urine Methadone Screen (NEGATIVE) Ur Barbiturates Screen (NEGATIVE) Ur Phencyclidine Scrn (NEGATIVE) Ur Amphetamine Screen (NEGATIVE) U Methamphetamines Scrn (NEGATIVE) U Benzodiazepines Scrn (NEGATIVE) U Cocaine Metab Screen (NEGATIVE) U Marijuana (THC) Screen (NEGATIVE) SARS-CoV-2 RNA (JAMIE) (NEGATIVE) Result Diagrams: 01/06/21 02:45 01/06/21 02:45 Sepsis Event Note - Evaluation Sepsis Screening Result: Possible Sepsis Risk - Focused Exam Vital Signs: Vital Signs Temp Pulse Resp BP Pulse Ox 01/06/21 08:00 36.8 C 59 L 18 122/72 98 01/06/21 02:35 36.5 C 50 L 14 111/63 98 01/06/21 02:09 67 17 141/87 H 97 01/05/21 22:26 64 16 145/88 H 99 - Problem List Review Problem List Initiated/Reviewed/Updated: Yes - My Orders Last 24 Hours: My Active Orders 01/06/21 01:23 Telemetry Monitoring [Cardiac Monitoring] [RC] Q8HR 01/06/21 02:24 Oxygen Therapy [RC] PRN Up ad Key [RC] ASDIRECTED VTE/DVT Education [RC] PER UNIT ROUTINE Vital Signs [RC] Q4H CULTURE BLOOD [BC] Stat CULTURE URINE [MREF] Routine Ondansetron [Zofran] 4 mg IVPUSH Q4H PRN Promethazine [Phenergan] 25 mg IM Q6H PRN Blood Culture x2 Reflex Set [OM.PC] Stat Resuscitation Status Routine 01/06/21 02:25 Antiembolic Devices [RC] PER UNIT ROUTINE Sequential Compression Device [OM.PC] Per Unit Routine 01/06/21 02:30 Sodium Chloride 0.9% [Normal Saline] 1,000 ml IV ASDIRECTED cefTRIAXone [Rocephin in Dextrose,Iso-Osm 1 GM/50 ML] 1 gm Premix Bag 1 bag IV Q24H 01/06/21 02:45 CULTURE BLOOD [BC] Stat 01/06/21 Breakfast Regular Diet [DIET] - Plan Plan:: 25 yo female admitted for gastroenteritis with dehydration. Given Rocephin on admission but infection is thought to be less likely. We will advance diet and monitor overnight. If continues to improve will discharge home tomorrow. Patient counseled on the need to reduce marijuana use as this may be contributing to her nausea.
[2021-01-06] MEDS ORDERED: Melatonin 3 MG Tab PO PRN (20:13)
[2021-01-07] MEDS: cefTRIAXone 1 GM in Premix Bag 1 BAG IV SCH (03:26)
[2021-01-07] MEDS: Sodium Chloride 0.9% 1,000 ML IV SCH (04:06)
[2021-01-07 08:11] VITALS: BP 112/65; PULSE 64
--- NOTE | 2021-01-07 11:18 | PCM.DCSUM1 ---
Discharge Summary - Discharge Data Discharge Date: 01/07/21 Discharge Disposition: Home, Self-Care 01 Condition: Stable - Referral to Home Health Primary Care Physician: Frandy Diaz MD - Patient Summary/Data Hospital Course: 25 yo female who was admitted for dehydration from gastroenteritis. She presented with two week history of nausea and vomiting. She was found to have a leukocytosis of 17,000 and lactic acid of 3.3. CT scan of abdomen was unremarkable. She was treated with IV fluids and given Rocephin. Patient was monitored for two days with resolution of symptoms and improvement in leukocytosis. Infection was thought to be unlikely. She was counseled on reducing marijuana usage. This morning nursing misdialed my number and I wasn't notified that the patient had signed out AMA. I called and spoke with patient to answer any questions and to recommend follow up with her primary care physician. - Patient Instructions Diet: Usual Diet as Tolerated - Discharge Plan *PRESCRIPTION DRUG MONITORING PROGRAM REVIEWED*: Not Applicable *COPY OF PRESCRIPTION DRUG MONITORING REPORT IN PATIENT SOPHIE: Not Applicable Prescriptions/Med Rec: Capsaicin 60 gm TP BID PRN #1 cream..g. PRN Reason: Abdominal Pain Omeprazole Magnesium [Prilosec Otc] 20 mg PO BID #30 tablet. Home Medications: Home Meds Pantoprazole [ProTONIX] 40 mg PO DAILY PRN 09/17/19 [History] Ibuprofen 600 mg PO Q6HR PRN #30 tablet 06/13/20 [Rx] Ondansetron [Zofran ODT] 4 mg PO Q6H PRN #12 tab.dis 06/13/20 [Rx] Promethazine [Phenergan] 25 mg PO Q6H PRN #12 tab 06/13/20 [Rx] Capsaicin 60 gm TP BID PRN #1 cream..g. 01/05/21 [Rx] Omeprazole Magnesium [Prilosec Otc] 20 mg PO BID #30 tablet. 01/05/21 [Rx] Citalopram [Citalopram HBr] 1 tab PO DAILY 01/06/21 [History] Patient Handouts: Cannabis Use Disorder, Abdominal Pain, Adult, Coca-az-Xilf, Nausea and Vomiting, Adult, Pulmonary Nodule Forms: ED Department Discharge Referrals: Frandy Diaz MD [Primary Care Provider] - 01/17/21 1:00 pm (Please notify your PCP of the incidental pulmonary nodules found on your CT scan needing serial monitoring.) - Discharge Summary/Plan Comment DC Time >30 min.: No Total # of Minutes for Discharge Time: 5 - Patient Data Vitals - Most Recent: Last Vital Signs Temp 36.7 C 01/07/21 07:45 Pulse 64 01/07/21 07:45 Resp 16 01/07/21 07:45 BP 112/65 01/07/21 07:45 Pulse Ox 96 01/07/21 07:45 Weight - Most Recent: 56.291 kg I&O - Last 24 hours: Intake & Output 01/06/21 01/07/21 01/07/21 22:59 06:59 14:59 Intake Total 2596 1875 Output Total 1620 2000 1500 Balance 976 -125 -1500 HARVEY Results - Last 24 hrs: Microbiology 01/06/21 02:45 Aerobic Blood Culture - Preliminary Blood - Venous - Lab Draw NO GROWTH AFTER 1 DAY Anaerobic Blood Culture - Preliminary NO GROWTH AFTER 1 DAY 01/05/21 17:40 Aerobic Blood Culture - Preliminary Blood - Venous NO GROWTH AFTER 1 DAY Anaerobic Blood Culture - Preliminary NO GROWTH AFTER 1 DAY Med Orders - Current: Current Medications Dextrose/Lactated Ringer's (Dextrose 5%-Lactated Ringers) 1,000 mls @ 999 mls/hr IV ASDIRECTED [facility] Last Admin: 01/05/21 18:36 Dose: 999 mls/hr Documented by: Lactated Ringer's (Ringers, Lactated) 1,000 mls @ 999 mls/hr IV ASDIRECTED [facility] Last Admin: 01/05/21 22:11 Dose: 999 mls/hr Documented by: Sodium Chloride (Normal Saline) 1,000 mls @ 125 mls/hr IV ASDIRECTED [facility] Last Admin: 01/07/21 04:06 Dose: 125 mls/hr Documented by: Ceftriaxone Sodium/Dextrose 1 (gm/ Premix) 50 mls @ 100 mls/hr IV Q24H [facility] Last Admin: 01/07/21 03:26 Dose: 100 mls/hr Documented by: Melatonin (Melatonin 3 Mg Tab) 6 mg PO BEDTIME PRN PRN Reason: sleep Ondansetron HCl (Ondansetron 4 Mg/2 Ml Sdv) 4 mg IVPUSH Q4H PRN PRN Reason: nausea Promethazine HCl (Promethazine 25 Mg/Ml Sdv) 25 mg IM Q6H PRN PRN Reason: nausea Discontinued Medications Al Hydroxide/Mg Hydroxide 15 ml/ Metoclopramide HCl 5 mg/Lidocaine HCl 5 ml 0 ml PO ONETIME ONE Stop: 01/05/21 21:19 Last Admin: 01/05/21 22:13 Dose: 1 each Documented by: Diphenhydramine HCl (Diphenhydramine 50 Mg/Ml Sdv) 50 mg IVPUSH ONETIME ONE Stop: 01/05/21 18:18 Last Admin: 01/05/21 18:36 Dose: 50 mg Documented by: Haloperidol Lactate (Haloperidol Lactate 5 Mg/Ml Sdv) 5 mg IM ONETIME ONE Stop: 01/05/21 18:18 Last Admin: 01/05/21 18:36 Dose: 5 mg Documented by: Hydromorphone HCl (Hydromorphone 1 Mg/Ml Syringe) 1 mg IVPUSH ONETIME ONE Stop: 01/05/21 21:23 Last Admin: 01/05/21 22:24 Dose: 1 mg Documented by: Lactated Ringer's (Ringers, Lactated) 1,000 mls @ 999 mls/hr IV .BOLUS ONE Stop: 01/05/21 21:26 Last Admin: 01/05/21 21:05 Dose: 999 mls/hr Documented by: Pantoprazole Sodium 40 mg/ (Sodium Chloride) 20 mls @ 420 mls/hr IVPUSH ONETIME ONE Stop: 01/05/21 21:19 Last Admin: 01/05/21 22:12 Dose: 420 mls/hr Documented by: Iopamidol (Iopamidol 755 Mg/Ml 100 Ml Bottle) 100 ml IVPUSH ONETIME ONE Stop: 01/05/21 20:15 Last Admin: 01/05/21 20:16 Dose: 100 ml Documented by: Ondansetron HCl (Ondansetron 4 Mg Tab.Dis) 4 mg PO ONETIME ONE Stop: 01/05/21 17:59 Last Admin: 01/05/21 18:36 Dose: 4 mg Documented by: Ondansetron HCl (Ondansetron 4 Mg/2 Ml Sdv) 4 mg IVPUSH ONETIME ONE Stop: 01/05/21 22:22 Last Admin: 01/05/21 22:22 Dose: 4 mg Documented by: Ondansetron HCl (Ondansetron 4 Mg/2 Ml Sdv) Confirm Administered Dose 4 mg .ROUTE .[facility] ONE Stop: 01/05/21 22:21 Last Admin: 01/05/21 22:23 Dose: Not Given Documented by:
== END 2021-01-07 10:17 | disposition left against medical advice (07) ==
LOC: MW.ED 15:56 → MW.MS 22:53
PROVIDERS: ADMIT Internal Medicine; ATTEND Internal Medicine
DX: K52.9 Noninfective gastroenteritis and colitis, unspecified (principal); E86.0 Dehydration; E87.2 Acidosis; J45.909 Unspecified asthma, uncomplicated; K21.9 Gastro-esophageal reflux disease without esophagitis; F41.9 Anxiety disorder, unspecified; F12.90 Cannabis use, unspecified, uncomplicated; F32.9 Major depressive disorder, single episode, unspecified; F43.10 Post-traumatic stress disorder, unspecified; Z20.822 Contact with and (suspected) exposure to COVID-19; Z98.890 Other specified postprocedural states; Z79.899 Other long term (current) drug therapy; Z72.89 Other problems related to lifestyle
CPT/HCPCS: 36415; 74177; 76705; 80053; 80305; 81001; 81025; 83605; 83690; 83735; 84703; 85025; 87040; 87086; 87635; A9270; C9113; J0696; J1170; J1200; J1630; J2405; J7030; J7120; J7121; Q9967; 96361; 96374; 96375; 99285-25; U0002

== ENCOUNTER 2021-07-24 13:45 | Emergency (ER) | payer BC ==
[2021-07-24 14:43] VITALS: BP 118/76; PULSE 64
[2021-07-24] MEDS ORDERED: Acetaminophen/oxyCODONE 325-5 MG Tab PO ONE (18:49)
[2021-07-24] MEDS ORDERED: Ketorolac 60 MG/2 ML SDV IM ONE (18:49)
== END 2021-07-24 19:26 | disposition home or self-care (01) ==
LOC: MW.ED 13:45
DX: S19.9XXA Unspecified injury of neck, initial encounter (principal); S29.9XXA Unspecified injury of thorax, initial encounter; S79.911A Unspecified injury of right hip, initial encounter; Z88.2 Allergy status to sulfonamides; Y04.0XXA Assault by unarmed brawl or fight, initial encounter
CPT/HCPCS: 70450; 71101; 72125; 73502; 96372; 99284; A9270; J1885; 99282

== ENCOUNTER 2022-05-16 16:08 | Emergency (ER) | payer BC ==
[2022-05-16] MEDS ORDERED: Ondansetron 4 MG/2 ML SDV IVPUSH ONE (16:34)
[2022-05-16] MEDS ORDERED: Sodium Chloride 0.9% 10 ML SDV IV ONE (17:17)
[2022-05-16] MEDS ORDERED: Sodium Chloride 0.9% 1,000 ML IV ONE ×2 (17:33→17:57)
[2022-05-16 17:59] LABS: CARBON DIOXIDE,CO2 22.6 mmol/L (21.0-32.0); POTASSIUM,K 4.2 mmol/L (3.5-5.1)
[2022-05-16] MEDS ORDERED: Prochlorperazine 10 MG/2 ML SDV IVPUSH ONE (18:09)
[2022-05-16] MEDS ORDERED: Iopamidol 755 MG/ML 500 ML Multipack Bottle IVPUSH STA (19:55)
[2022-05-16] MEDS ORDERED: Ketorolac 30 MG/ML SDV IVPUSH ONE (21:27)
[2022-05-16] MEDS ORDERED: diphenhydrAMINE 50 MG/ML SDV IVPUSH ONE (21:27)
[2022-05-16] MEDS ORDERED: Dextrose 5%-Lactated Ringers 1,000 ML IV STA (22:22)
[2022-05-16 22:46] VITALS: BP 108/55; PULSE 85
== END 2022-05-16 22:44 | disposition home or self-care (01) ==
LOC: MW.ED 16:08
DX: K52.9 Noninfective gastroenteritis and colitis, unspecified (principal); Z88.2 Allergy status to sulfonamides
CPT/HCPCS: 36415; 74160; 80053; 81001; 83690; 84703; 85025; 96361; 96374; 96375; 99284; J0780; J1200; J1885; J2405; J7030; Q9967

== ENCOUNTER 2022-08-01 07:04 | Emergency (ER) | payer BC ==
[2022-08-01] MEDS ORDERED: Ondansetron 4 MG/2 ML SDV IVPUSH ONE (07:58)
[2022-08-01] MEDS ORDERED: Sodium Chloride 0.9% 1,000 ML IV ONE (07:58)
[2022-08-01] MEDS ORDERED: Ketorolac 30 MG/ML SDV IVPUSH ONE (07:58)
[2022-08-01] MEDS ORDERED: Sodium Chloride 0.9% 2.5 ML Syringe FLUSH PRN (07:58)
[2022-08-01] MEDS ORDERED: Sodium Chloride 0.9% 10 ML Syringe FLUSH PRN (07:58)
[2022-08-01 08:44] LABS: CARBON DIOXIDE,CO2 26.6 mmol/L (21.0-32.0); POTASSIUM,K 3.6 mmol/L (3.5-5.1)
[2022-08-01] MEDS ORDERED: Metoclopramide 10 MG/2 ML SDV IVPUSH ONE (09:11)
[2022-08-01 09:14] VITALS: PULSE 74
[2022-08-01] MEDS ORDERED: Iopamidol 755 MG/ML 500 ML Multipack Bottle IVPUSH STA (09:17)
[2022-08-01 10:13] VITALS: BP 122/82
== END 2022-08-01 10:33 | disposition home or self-care (01) ==
LOC: MW.ED 07:04
DX: K52.9 Noninfective gastroenteritis and colitis, unspecified (principal); E86.0 Dehydration; Z88.2 Allergy status to sulfonamides
CPT/HCPCS: 36415; 74177; 80053; 81001; 84703; 85025; 87086; 96361; 96374; 96375; 99284; J1885; J2405; J2765; J3490; J7030; Q9967

== ENCOUNTER 2022-08-19 23:21 | Emergency (ER) | payer BC ==
[2022-08-19] MEDS ORDERED: Albuterol/Ipratropium 3.0-0.5 MG/3 ML Neb Soln NEB ONE (23:22)
[2022-08-19] MEDS ORDERED: Dexamethasone 10 MG/ML SDV IM ONE (23:22)
[2022-08-19] MEDS ORDERED: Albuterol 8 GM Inhaler INH PRN (23:27)
[2022-08-20 00:31] VITALS: BP 122/67; PULSE 87
== END 2022-08-20 00:21 | disposition home or self-care (01) ==
LOC: MW.ED 23:21
DX: J45.901 Unspecified asthma with (acute) exacerbation (principal); K21.9 Gastro-esophageal reflux disease without esophagitis; Z88.2 Allergy status to sulfonamides; Z79.899 Other long term (current) drug therapy
CPT/HCPCS: 96372; 99284; A9270; J1100; J7620-GY

== ENCOUNTER 2022-09-29 13:40 | Emergency (ER) | payer SELFPAY ==
[2022-09-29] MEDS ORDERED: Diphtheria,Pertussis(Acell),Tetanus Vaccine 0.5 ML Syringe IM ONE (14:25)
[2022-09-29] MEDS ORDERED: Ibuprofen 400 MG Tab PO ONE (14:25)
[2022-09-29 16:52] VITALS: BP 113/54; PULSE 73
== END 2022-09-29 15:40 | disposition home or self-care (01) ==
LOC: MW.ED 13:40
DX: S91.332A Puncture wound without foreign body, left foot, initial encounter (principal); R21 Rash and other nonspecific skin eruption; F17.210 Nicotine dependence, cigarettes, uncomplicated; J45.909 Unspecified asthma, uncomplicated; Z79.899 Other long term (current) drug therapy; Z88.2 Allergy status to sulfonamides; W22.8XXA Striking against or struck by other objects, initial encounter
CPT/HCPCS: 73620; 90471; 90715; 99283; A9270

== ENCOUNTER 2023-01-27 08:47 | Emergency (ER) | payer SELFPAY ==
[2023-01-27] MEDS ORDERED: Sodium Chloride 0.9% 2.5 ML Syringe FLUSH PRN (08:59)
[2023-01-27] MEDS ORDERED: Sodium Chloride 0.9% 10 ML Syringe FLUSH PRN (08:59)
[2023-01-27] MEDS ORDERED: Ondansetron 4 MG/2 ML SDV IVPUSH ONE (08:59)
[2023-01-27] MEDS ORDERED: Morphine 4 MG/ML Syringe IVPUSH ONE (08:59)
[2023-01-27] MEDS ORDERED: Dexamethasone 10 MG/ML SDV IVPUSH ONE (08:59)
[2023-01-27] MEDS ORDERED: Sodium Chloride 0.9% 1,000 ML IV ONE (08:59)
[2023-01-27 09:21] LABS: BASOPHILS ABSOLUTE AUTO 0.05 K/uL (0.00-0.20); BASOPHILS PERCENT AUTO 0.4 % (0.0-1.0); EOSINOPHILS ABSOLUTE AUTO 0.13 K/uL (0.00-0.45); HEMATOCRIT 39.7 % (37.0-47.0); HEMOGLOBIN 12.9 g/dL (12.0-16.0); IMMATURE GRAN ABSOLUTE AUTO 0.04 K/uL (0.00-0.05); IMMATURE GRAN PERCENT AUTO 0.3 % (0.0-0.4); LYMPHOCYTES ABSOLUTE AUTO 2.26 K/uL (1.00-4.80); LYMPHOCYTES PERCENT AUTO 17.2 % (24.0-44.0); MEAN CORPUSCULAR HEMOGLOBIN 27.4 pg (28.0-32.0); MEAN CORPUSCULAR HGB CONC 32.5 g/dL (32.0-36.0); MEAN CORPUSCULAR VOLUME 84.3 fL (83.0-99.0); MEAN PLATELET VOLUME 9.9 fL (9.4-12.3); MONOCYTES ABSOLUTE AUTO 0.82 K/uL (0.00-0.80); MONOCYTES PERCENT AUTO 6.2 % (0.0-8.0); NEUTROPHILS ABSOLUTE AUTO 9.9 K/uL (1.8-7.7); NEUTROPHILS PERCENT AUTO 74.9 % (41.0-71.0); PLATELET COUNT,PLT 334 K/uL (150-400); RED BLOOD CELL COUNT 4.71 M/uL (4.10-5.30); WHITE BLOOD CELL COUNT,WBC 13.17 K/uL (3.9-11.3)
[2023-01-27 09:39] LABS: HCG QUALITATIVE,SERUM NEGATIVE (NEG)
[2023-01-27] MEDS ORDERED: Ampicillin/Sulbactam Na 3 GM in Sodium Chloride 0.9% 100 ML IV ONE (09:45)
[2023-01-27 09:46] LABS: A/G RATIO 1.1 (0.9-1.6); ALBUMIN 3.7 g/dL (3.4-5.0); BILIRUBIN TOTAL 0.5 mg/dL (0.2-1.0); CALCIUM 8.9 mg/dL (8.5-10.1); CARBON DIOXIDE,CO2 26.7 mmol/L (21.0-32.0); CREATININE 0.6 mg/dL (0.6-1.0); EST CRCL DRUG DOSING (CG) 106.28 mL/min; POTASSIUM,K 4.1 mmol/L (3.5-5.1)
[2023-01-27] MEDS ORDERED: Ketorolac 30 MG/ML SDV IVPUSH ONE (09:52)
[2023-01-27] MEDS ORDERED: Iopamidol 755 MG/ML 500 ML Multipack Bottle IVPUSH STA (10:11)
[2023-01-27 10:13] VITALS: PULSE 53
[2023-01-27 10:17] LABS: CORONAVIRUS COVID-19 NAA NEGATIVE (NEGATIVE); INFLUENZA A NAA NEGATIVE (NEGATIVE); INFLUENZA B NAA NEGATIVE (NEGATIVE); RESPIRATORY SYNCYTIAL VIR NAA NEGATIVE (NEGATIVE)
[2023-01-27 10:51] VITALS: BP 114/91
== END 2023-01-27 10:50 | disposition home or self-care (01) ==
LOC: MW.ED 08:47
DX: J02.9 Acute pharyngitis, unspecified (principal); K02.9 Dental caries, unspecified; I88.9 Nonspecific lymphadenitis, unspecified; Z20.822 Contact with and (suspected) exposure to COVID-19; Z79.899 Other long term (current) drug therapy
CPT/HCPCS: 0241U; 36415; 70491; 80053; 84703; 85025; 86308; 96361; 96365; 96375; 99284; J0295; J1100; J1885; J2270; J2405; J3490; J7030; Q9967

== ENCOUNTER 2023-05-22 07:33 | Emergency (ER) | payer BC ==
[2023-05-22] MEDS ORDERED: Albuterol/Ipratropium 3.0-0.5 MG/3 ML Neb Soln ONE (07:35)
[2023-05-22] MEDS ORDERED: predniSONE 20 MG Tab PO ONE (07:37)
[2023-05-22] MEDS ORDERED: Albuterol/Ipratropium 3.0-0.5 MG/3 ML Neb Soln NEB ONE (07:42)
[2023-05-22 07:46] VITALS: BP 132/93
[2023-05-22 08:36] LABS: CORONAVIRUS COVID-19 NAA NEGATIVE (NEGATIVE); INFLUENZA A NAA NEGATIVE (NEGATIVE); INFLUENZA B NAA NEGATIVE (NEGATIVE); RESPIRATORY SYNCYTIAL VIR NAA NEGATIVE (NEGATIVE)
[2023-05-22 08:55] VITALS: PULSE 62
== END 2023-05-22 08:55 | disposition home or self-care (01) ==
LOC: MW.ED 07:33
DX: J45.901 Unspecified asthma with (acute) exacerbation (principal); J06.9 Acute upper respiratory infection, unspecified; Z79.899 Other long term (current) drug therapy; Z88.2 Allergy status to sulfonamides
CPT/HCPCS: 0241U; 99285; A9270; 99283; J7620-GY

== ENCOUNTER 2023-09-01 12:21 | Emergency (ER) | payer BC ==
[2023-09-01 12:45] VITALS: BP 115/67; PULSE 63
[2023-09-01 13:57] LABS: CORONAVIRUS COVID-19 NAA NEGATIVE (NEGATIVE); INFLUENZA A NAA NEGATIVE (NEGATIVE); INFLUENZA B NAA NEGATIVE (NEGATIVE); RESPIRATORY SYNCYTIAL VIR NAA NEGATIVE (NEGATIVE)
== END 2023-09-01 14:15 | disposition home or self-care (01) ==
LOC: MW.ED 12:21
DX: J02.9 Acute pharyngitis, unspecified (principal); J45.909 Unspecified asthma, uncomplicated; Z88.2 Allergy status to sulfonamides; Z79.51 Long term (current) use of inhaled steroids; Z79.899 Other long term (current) drug therapy; Z75.8 Other problems related to medical facilities and other health care
CPT/HCPCS: 0241U; 87651; 93005; 99283; 93010; 99282

== ENCOUNTER 2023-12-21 09:36 | Emergency (ER) | payer BC ==
[2023-12-21 09:47] VITALS: BP 133/73; PULSE 86
[2023-12-21] MEDS ORDERED: Sodium Chloride 0.9% 2.5 ML Syringe FLUSH PRN (09:49)
[2023-12-21] MEDS ORDERED: Sodium Chloride 0.9% 10 ML Syringe FLUSH PRN (09:49)
[2023-12-21 10:37] LABS: BASOPHILS ABSOLUTE AUTO 0.03 K/uL (0.00-0.20); BASOPHILS PERCENT AUTO 0.2 % (0.0-1.0); EOSINOPHILS ABSOLUTE AUTO 0.01 K/uL (0.00-0.45); EOSINOPHILS PERCENT AUTO 0.1 % (0.0-6.0); HEMATOCRIT 39.1 % (37.0-47.0); HEMOGLOBIN 12.9 g/dL (12.0-16.0); IMMATURE GRAN ABSOLUTE AUTO 0.07 K/uL (0.00-0.05); IMMATURE GRAN PERCENT AUTO 0.4 % (0.0-0.4); LYMPHOCYTES ABSOLUTE AUTO 1.28 K/uL (1.00-4.80); LYMPHOCYTES PERCENT AUTO 7.6 % (24.0-44.0); MEAN CORPUSCULAR VOLUME 81.8 fL (83.0-99.0); MEAN PLATELET VOLUME 10.1 fL (9.4-12.3); MONOCYTES ABSOLUTE AUTO 0.71 K/uL (0.00-0.80); MONOCYTES PERCENT AUTO 4.2 % (0.0-8.0); NEUTROPHILS ABSOLUTE AUTO 14.73 K/uL (1.80-7.70); NEUTROPHILS PERCENT AUTO 87.5 % (41.0-71.0); PLATELET COUNT,PLT 293 K/uL (150-400); RED BLOOD CELL COUNT 4.78 M/uL (4.10-5.30); WHITE BLOOD CELL COUNT,WBC 16.83 K/uL (3.9-11.3)
[2023-12-21 11:03] LABS: A/G RATIO 1.3 (0.9-1.6); ALANINE AMINOTRANSFERASE,ALT 22 IU/L (14-63); ALBUMIN 4.7 g/dL (3.4-5.0); ALKALINE PHOSPHATASE 65 U/L (46-116); ASPARTATE AMNIOTRANSFERASE,AST 15 IU/L (15-37); BILIRUBIN TOTAL 0.4 mg/dL (0.2-1.0); BLOOD UREA NITROGEN,BUN 11 mg/dL (7.0-18.0); CALCIUM 9.3 mg/dL (8.5-10.1); CARBON DIOXIDE,CO2 25.1 mmol/L (21.0-32.0); CHLORIDE,CL 97 mmol/L (98-107); CREATININE 0.8 mg/dL (0.6-1.0); EST CRCL DRUG DOSING (CG) 79.71 mL/min; GLUCOSE RANDOM 217 mg/dL (74-106); POTASSIUM,K 3.9 mmol/L (3.5-5.1); PROTEIN TOTAL,TP 8.2 g/dL (6.4-8.2); SODIUM,NA 134 mmol/L (136-145)
[2023-12-21 11:06] LABS: ESTIMATED GFR 104 mL/min (>60); ETHANOL BLOOD MEDICAL < 3.0 mg/dL
[2023-12-21 11:19] LABS: AMPHETAMINES SCREEN, URINE NEGATIVE (CUTOFF=500); BARBITURATE SCREEN,URINE NEGATIVE (CUTOFF=200); BENZODIAZEPINES SCREEN,URINE NEGATIVE (CUTOFF=150); BUPRENORPHINE SCREEN,URINE NEGATIVE (CUTOFF=10); METHADONE SCREEN, URINE NEGATIVE (CUTOFF=200); METHAMPHETAMINES SCREEN, URINE NEGATIVE (CUTOFF=500); OXYCODONE SCREEN,URINE NEGATIVE (CUT0FF=100); PCP SCREEN,URINE NEGATIVE (CUTOFF=25); THC SCREEN,URINE 20 NG/ML PRESUMPTIVE POSITIVE (CUTOFF=50)
== END 2023-12-21 11:30 | disposition home or self-care (01) ==
LOC: MW.ED 09:36
DX: G40.909 Epilepsy, unspecified, not intractable, without status epilepticus (principal); F14.10 Cocaine abuse, uncomplicated; F12.10 Cannabis abuse, uncomplicated; J45.909 Unspecified asthma, uncomplicated; F17.210 Nicotine dependence, cigarettes, uncomplicated; Z75.8 Other problems related to medical facilities and other health care
CPT/HCPCS: 36415; 80053; 80305-QW; 80307; 81025; 84146; 85025; 93005; 93010; 99284

== ENCOUNTER 2024-03-27 22:18 | Emergency (ER) | payer BC ==
[2024-03-27 22:38] LABS: BASOPHILS ABSOLUTE AUTO 0.04 K/uL (0.00-0.20); BASOPHILS PERCENT AUTO 0.3 % (0.0-1.0); EOSINOPHILS ABSOLUTE AUTO 0.07 K/uL (0.00-0.45); EOSINOPHILS PERCENT AUTO 0.5 % (0.0-6.0); HEMATOCRIT 39.8 % (37.0-47.0); HEMOGLOBIN 13.2 g/dL (12.0-16.0); IMMATURE GRAN ABSOLUTE AUTO 0.04 K/uL (0.00-0.05); IMMATURE GRAN PERCENT AUTO 0.3 % (0.0-0.4); LYMPHOCYTES ABSOLUTE AUTO 2.46 K/uL (1.00-4.80); LYMPHOCYTES PERCENT AUTO 16.9 % (24.0-44.0); MEAN CORPUSCULAR HEMOGLOBIN 27.3 pg (28.0-32.0); MEAN CORPUSCULAR HGB CONC 33.2 g/dL (32.0-36.0); MEAN CORPUSCULAR VOLUME 82.2 fL (83.0-99.0); MEAN PLATELET VOLUME 9.9 fL (9.4-12.3); MONOCYTES ABSOLUTE AUTO 1.09 K/uL (0.00-0.80); MONOCYTES PERCENT AUTO 7.5 % (0.0-8.0); NEUTROPHILS ABSOLUTE AUTO 10.83 K/uL (1.80-7.70); NEUTROPHILS PERCENT AUTO 74.5 % (41.0-71.0); PLATELET COUNT,PLT 298 K/uL (150-400); RED BLOOD CELL COUNT 4.84 M/uL (4.10-5.30); WHITE BLOOD CELL COUNT,WBC 14.53 K/uL (3.9-11.3)
[2024-03-27 22:40] VITALS: BP 135/76
[2024-03-27 22:54] LABS: CALCIUM 9.3 mg/dL (8.5-10.1); CARBON DIOXIDE,CO2 20.2 mmol/L (21.0-32.0); EST CRCL DRUG DOSING (CG) 63.2 mL/min; POTASSIUM,K 3.5 mmol/L (3.5-5.1)
[2024-03-28 00:11] VITALS: PULSE 83
== END 2024-03-28 00:19 | disposition home or self-care (01) ==
LOC: MW.ED 22:18
DX: R56.9 Unspecified convulsions (principal); F14.10 Cocaine abuse, uncomplicated; J45.909 Unspecified asthma, uncomplicated; Z88.2 Allergy status to sulfonamides
CPT/HCPCS: 36415; 70450; 70450-26; 72125; 72125-26; 80048; 82947; 84703; 85025; 93005; 99284

== ENCOUNTER 2024-11-23 19:21 | Emergency (ER) | payer SELFPAY ==
[2024-11-23 20:56] VITALS: BP 128/75; PULSE 71
== END 2024-11-23 20:55 | disposition home or self-care (01) ==
LOC: MW.ED 19:21
DX: S90.01XA Contusion of right ankle, initial encounter (principal); Z88.2 Allergy status to sulfonamides; W20.8XXA Other cause of strike by thrown, projected or falling object, initial encounter
CPT/HCPCS: 73610; 73630; 99283; A9270; 99282